=== PATIENT | female | born 1955 | race Caucasian/White ===

== ENCOUNTER → 2017-08-17 | Outpatient (CLI) | payer MEDICARE ==
[~2017-08-17] MED LIST: AMITRIPTYLINE H25 M3 PO; AMITRIPTYLINE H50 M2 PO; AMITRIPTYLINE H50 M3 PO; AMITRIPTYLINE H50 M4 PO; ATENOLOL 25 MG25 M1 PO; ATIVAN1 MG PO; BUSPIRONE HCL15 MG PO; GABAPENTIN800 M1 PO; HYDROCODON-ACE1 EAC5 PO; METFORMIN HCL500 MG PO; OMEPRAZOLE40 MG PO; SINGULAIR 10 MG10 M1 PO; SPIRIVA INH; VENTOLIN HFA 1818 GM INH; ZANAFLEX4 MG PO; [UNRECOGNIZED DRUG - OTHER] PO
== END ==
LOC: M.WC 08-03 01:36
DX: S51.802A Unspecified open wound of left forearm, initial encounter (principal); E11.622 Type 2 diabetes mellitus with other skin ulcer; L98.491 Non-pressure chronic ulcer of skin of other sites limited to breakdown of skin; E78.00 Pure hypercholesterolemia, unspecified; G43.109 Migraine with aura, not intractable, without status migrainosus; I87.2 Venous insufficiency (chronic) (peripheral); J44.9 Chronic obstructive pulmonary disease, unspecified; M85.80 Other specified disorders of bone density and structure, unspecified site; E11.42 Type 2 diabetes mellitus with diabetic polyneuropathy; K21.9 Gastro-esophageal reflux disease without esophagitis; E11.36 Type 2 diabetes mellitus with diabetic cataract; M81.0 Age-related osteoporosis without current pathological fracture; I10 Essential (primary) hypertension; F41.9 Anxiety disorder, unspecified; F32.9 Major depressive disorder, single episode, unspecified; F17.200 Nicotine dependence, unspecified, uncomplicated; Z90.49 Acquired absence of other specified parts of digestive tract; Z90.710 Acquired absence of both cervix and uterus; X58.XXXA Exposure to other specified factors, initial encounter; Y99.8 Other external cause status; Y92.89 Other specified places as the place of occurrence of the external cause; Y93.89 Activity, other specified

== ENCOUNTER → 2017-08-24 | Outpatient (CLI) | payer MEDICARE | LOC: M.WC 01:53 | DX: E11.622 Type 2 diabetes mellitus with other skin ulcer (principal); I87.2 Venous insufficiency (chronic) (peripheral); L98.491 Non-pressure chronic ulcer of skin of other sites limited to breakdown of skin; J44.9 Chronic obstructive pulmonary disease, unspecified; F41.9 Anxiety disorder, unspecified; E11.42 Type 2 diabetes mellitus with diabetic polyneuropathy; K21.9 Gastro-esophageal reflux disease without esophagitis; E11.36 Type 2 diabetes mellitus with diabetic cataract; F32.9 Major depressive disorder, single episode, unspecified; E78.00 Pure hypercholesterolemia, unspecified; F17.210 Nicotine dependence, cigarettes, uncomplicated; Z72.89 Other problems related to lifestyle; Z90.710 Acquired absence of both cervix and uterus ==

== ENCOUNTER → 2017-09-09 | Outpatient (CLI) | payer MEDICARE ==
--- NOTE | 2017-09-15 08:40 | PAINCON ---
[address] [address] PAIN MANAGEMENT CONSULTATION Name: TAMARA KEYS Room: [facility] MAYURI Chang#: [id number] Admission: 09/09/17 Attend Phys: Nasreen Dockery MD Discharge: Date of : 55 Report #: [id number] THIS REPORT FOR: //name// CC: Nasreen Chaney MD DATE OF SERVICE: 09/09/2017 CHIEF COMPLAINT: Chronic nerve pain in the back, hands, feet. 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 States that she has had chronic pain and discomfort. 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 States that she has been having difficulty with her balance. 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 She started to note onset of numbness and tingling in her hands as well as in her feet. She also has diabetes. She feels that it may have contributed to some of this. She has had a number of workups in that regard. Finds that amitriptyline, gabapentin, and Zanaflex are helpful. The patient has also over the last many years used hydrocodone to help control her pain and discomfort. She states that her primary care physician would like to have her be followed in the pain clinic for this chronic pain condition at this juncture. She states that she has had no problems with the medications and that she is taking them as prescribed. She continues to have some burning sensation in her hands and in her feet. There is a shooting pain component. She tries to stay active. She continues to follow up in an exercise class on a regular basis. She has had back surgery. Overall, she rates her pain as a 6/10. She describes it as a chronic continuous, steady, burning, shooting, aching pain involving her hands and feet. She is not sure of anything that makes it significantly better other than her medications. ALLERGIES: No known drug allergies. MEDICATIONS: Omeprazole 40 mg b.i.d., amitriptyline 25 mg in the morning and 750 mg at bedtime, metformin 500 mg, Singulair 10 mg, atenolol 25 mg one-half tablet, buspirone 15 mg b.i.d., gabapentin 800 mg t.i.d., Spiriva daily, Ventolin p.r.n., Ativan 1 mg at bedtime, Zanaflex 4 mg at bedtime and Breo Ellipta 200 mcg. PAST MEDICAL HISTORY: History of problems with balance and frequent falls; low back pain; history of lumbar disk disease; anxiety; spinal stenosis; lumbar region with neurogenic claudication; osteopenia; hoarseness of the voice; peripheral neuropathy; type 2 diabetes; generalized weakness; GERD; COPD; essential hypertension; migraine history; hypercholesterolemia; depression; history of reflex sympathetic [place] [address] PAIN MANAGEMENT CONSULTATION Name: TAMARA KEYS [facility] [id number] Admission: 09/09/17 Attend Phys: Nasreen Dockery MD Discharge: Date of : 55 Report #: [id number] PAST SURGICAL HISTORY: Hysterectomy, 09/20/2008; lumbar laminectomy, 08/18/2016; bunionectomy, 02/2014; transobturator urethral sling, 07/2015. 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 Current tobacco use, 30-year history, 1 pack per day. Alcohol, rare alcohol use, may be once per month. Denies use of illicit drugs. REVIEW OF SYSTEMS: Questionnaire in the chart, 14 points indicate generally good health; fevers; night sweats; wears glasses; chronic sinus problems; sore throat/scratchy throat; swelling in feet, ankles and hands; frequent cough; asthma symptoms; joint stiffness; muscle pains; muscle cramps; back pain; difficulty walking, ambulates with use of walker; problems with balance; varicose veins; numbness and tingling sensation in the hands and feet in a stocking glove distribution; insomnia and slow healing. LABORATORY AND IMAGING DATA: Information gleaned from past medical chart, 04/22/2016, EMG and NCV showed peripheral neuropathy, motor and sensory, axonal - severe; bilateral L5 and S1 radiculopathies, chronic changes present. History of arthritis in the back area. The patient is followed by her primary physician in that regard. The patient rates intensity of her pain as 7. She is a fall risk. She continues to work on her balance and her exercise classes. Has fallen in the last 3 months. Walks with use of a walker and continues to work on her balance. We recommend that the patient consider wearing a bicycle helmet in the event that she has fallen in her house and this would lessen the chance of head injury. The patient is not on any blood thinner, has a history of hypertension and is currently on medications for this. Use opioids greater than 6 weeks, has signed a contract and we have discussed the risks and benefits again of opioid therapy. Risk assessment tool was provided and scores a 39. The patient denies use of recreational drugs. Does smoke cigarettes on a regular basis, 1 pack per day, 30 years. I have discussed the benefits of stopping tobacco use. The patient states she has tried in the past and will continue to. PHYSICAL EXAMINATION: VITAL SIGNS: Height 5 feet 7 inches, weight 174 pounds, BMI is 27, temperature 97.9, blood pressure 148/75, heart rate 88, respiratory rate 16. GENERAL APPEARANCE: Well-developed white female. Does have some shaking in her hands as well as in her feet and legs during the interview. Appears cyst appears stated age. The patient is oriented x 3 and alert. Appears appropriate and has an appropriate affect. HEENT: Head is atraumatic. Has short hair. Ears: Hearing appears within normal limits. Eyes were equal. No nystagmus noted. Nonicteric. [place] [address] PAIN MANAGEMENT CONSULTATION Name: ALLISON KEYSShakir Cuadra Room: [facility]#: [id number] Admission: 09/09/17 Attend Phys: Nasreen Dockery MD Discharge: Date of : 55 Report #: [id number] NECK: No JVD, bruit. Some tenderness in the shoulder areas bilaterally. CHEST: Clear to auscultation. HEART: Regular rate. Slight murmur heard. S1, S2 noted. MUSCULOSKELETAL: Seems to have normal alignment. No obvious scoliosis or kyphosis. Neck flexion, extension, left and right lateral rotation, cervical compression not very problematic. NEUROLOGICAL: Sensation generally within normal limits in the upper portion of her arm and forearm. The patient states she has decreased sensation to pinprick and light touch to the mid portion of her fingers. Deep tendon reflexes are trace bilaterally at the biceps undetectable for brachioradialis and triceps. Muscle storm chaser strength is 4+ for left and right arm. The patient is unstable on her feet. Cannot close her eyes and stand. She is noted to be somewhat weak and uses her walker for ambulation. Deep tendon reflexes are difficult to appreciate in the left and right patellar area. Ankle jerks were absent. The patient states that there is a decreased sensation to touch, cold down in her feet. SKIN: The patient has a number of healing lesions on her forearms in different states of healing. The patient does cough numerous times with a deep cough, clear her lungs and throat. IMPRESSION: 1. Chronic pain with lumbar radicular components in the legs and neuropathy in the hands and feet. 2. Chronic obstructive pulmonary disease. 3. Anxiety. 4. Type 2 diabetes. 5. Generalized weakness. 6. Gastroesophageal reflux disease. 7. Hiatal hernia. 8. Essential hypertension. 9. Classic migraine history. 10. Depression. 11. History of reflex sympathetic dystrophy of lower limb. RECOMMENDATIONS: We spent a significant amount of time speaking with the patient regarding her past medical history and use of medications. States that she has been taking opioid medications for a number of years. She finds that in combination with her gabapentin, Elavil and Zanaflex are helpful. She continues to be active. She feels that this medication enables her to continue with her physical activities, which she does on a regular basis. She feels that the Elavil medication is helpful. She does not feel that it is causing her any increased sedation. She takes 25 mg in the midday and 50 mg at night. We will consider increasing this to 50 mg b.i.d. We will provide the patient with a drug contract. We explained and discussed the problems with opioid medications in today's society. We will provide her on a month to month basis of opioid 10 mg 1 p.o. t.i.d. at this juncture. She is aware that she should not get [address] [place] [address] PAIN MANAGEMENT CONSULTATION Name: TAMARA KEYS Room: [facility]#: [id number] Admission: 09/09/17 Attend Phys: Nasreen Dockery MD Discharge: Date of : 55 Report #: [id number] medication from any other sources. We would recommend that the patient try to continue to decrease her tobacco use. We know that this is not helpful in her given situation. We also recommend that she continue staying physically active. She will call us if she has any problem with her medications. A buccal drug screen has been garnered today. The patient will follow up a script for her medications for 1 month as it has been written for hydrocodone 10 one p.o. t.i.d. She will call us if she has any problems with her medications. We would like to thank you for letting us part letting us participate in her care. We hope she continues to improve. The patient will also increase her Elavil from 25 in the midday and 50 at night to 50 midday and 50 at night. <ELECTRONICALLY SIGNED> By: Nasreen Dockery MD 09/15/17 0840 [id number] [id number]. Gilmer Dockery MD /HEDY
== END ==
LOC: M.PC 01:44
DX: G89.29 Other chronic pain (principal); E11.9 Type 2 diabetes mellitus without complications; K21.9 Gastro-esophageal reflux disease without esophagitis; J44.9 Chronic obstructive pulmonary disease, unspecified; I10 Essential (primary) hypertension; M79.2 Neuralgia and neuritis, unspecified; E78.00 Pure hypercholesterolemia, unspecified; F41.9 Anxiety disorder, unspecified; R53.1 Weakness; K44.9 Diaphragmatic hernia without obstruction or gangrene; G90.50 Complex regional pain syndrome I, unspecified; F32.9 Major depressive disorder, single episode, unspecified; Z90.49 Acquired absence of other specified parts of digestive tract; Z86.69 Personal history of other diseases of the nervous system and sense organs; Z98.890 Other specified postprocedural states

== ENCOUNTER → 2017-10-14 | Outpatient (CLI) | payer MEDICARE ==
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
== END ==
LOC: M.PC 10-07 08:00
DX: M54.16 Radiculopathy, lumbar region (principal); G62.9 Polyneuropathy, unspecified; J44.9 Chronic obstructive pulmonary disease, unspecified; F41.9 Anxiety disorder, unspecified; E11.9 Type 2 diabetes mellitus without complications; R53.1 Weakness; K21.9 Gastro-esophageal reflux disease without esophagitis; K44.9 Diaphragmatic hernia without obstruction or gangrene; I10 Essential (primary) hypertension; F32.9 Major depressive disorder, single episode, unspecified; G90.529 Complex regional pain syndrome I of unspecified lower limb

== ENCOUNTER → 2017-11-11 | Outpatient (CLI) | payer MEDICARE ==
--- NOTE | 2017-11-12 08:28 | PAINCON ---
[facility] [address] [place] [address] PAIN MANAGEMENT CONSULTATION Name: TAMARA KEYS Room: [facility] Charlene#: [id number] Admission: 11/11/17 Attend Phys: Nasreen Dockery MD Discharge: Date of : 55 Report #: [id number] THIS REPORT FOR: //name// CC: Nasreen Chaney MD DATE OF SERVICE: 11/11/2017 PRIMARY CARE PHYSICIAN: Haroldo Chaney M.D. FOLLOWUP COMPLAINT: Here for medication renewal. 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 As you recall, she has pain and discomfort in the low back area as well as some weakness and problems with balance. States that she continues to be stable. She has noticed the changed in weather. As a result of the change in the weather, she has noted some increasing pain and discomfort. Overall, she rates her pain intensity as a 5-6/10. It involves her low back. She also has some arthritic changes in her low back. She continues to work on her balance. She gets up in the morning about 6:30 and after a period of time goes to her jazzercise class. Works on her balance and muscle strength for about an hour. Does continue to use a walker to walk. Noting some increased skin changes. As you know, she has some areas of thinning skin. She bumps into the wall and her skin tears. She has been using Coban to help with this. She also has a dog. Dog sometimes gets under foot. She minds when tries to keep from falling. She feels overall that things are going reasonably well with her medications. She finds that the amitriptyline is helpful. She does note some dryness of her mouth. She feels that tizanidine is helpful and finds hydrocodone beneficial as well. She has had no complications since we saw her last. No change in bowel or bladder function. Has not fallen since we saw her last. She would like to continue with her medication. ALLERGIES: No known drug allergies. MEDICATIONS: Continue to be omeprazole 40 mg b.i.d., amitriptyline 50 mg b.i.d., metformin 500 mg daily, Singulair 10 mg, atenolol 25 mg one half tablet, buspirone 15 mg b.i.d., gabapentin 800 mg t.i.d., Spiriva daily, Ventolin p.r.n., Ativan 1 mg at bedtime, Zanaflex 4 mg at bedtime, Breo 200 mcg. PAIN CLINIC ASSESSMENT: The patient is not being treated for osteoarthritis, but says she has some arthritic changes in the lower portion of her back. Height 5 feet 7 inches, weight is 171 pounds. VITAL SIGNS: Blood pressure 168/88, pulse 92, respiratory rate 16, room air saturation is 95%, temperature 98.2. [place] [address] PAIN MANAGEMENT CONSULTATION Name: TAMARA KEYS Room: [facility] MAYURI Chang#: [id number] Admission: 11/11/17 Attend Phys: Nasreen Dockery MD Discharge: Date of : 55 Report #: [id number] Pain intensity: 5-6/7. Fall risk. The patient has not fallen. She continues to walk with her walker. She tries to maintain her balance at home with her dog, which run around her feet. Continues to go to [employer] to maintain balance and muscle strength. Blood thinner. She is not on a blood thinner. History of hypertension. The patient was treated in the past, but is not being treated for hypertension at this juncture. Opioid therapy greater than 6 weeks. The patient has a contract signed with Pain Clinic. She only get her medications from one source. Recreational drug use. The patient denies recreational drug use. Tobacco: The patient has an approximately 40-year history of tobacco, smokes 1 pack of cigarettes per day and is continuing to try to decrease this. Alcohol. The patient denies significant use of alcoholic beverages. PHYSICAL EXAMINATION: GENERAL: The patient is a well-developed white female. She does continue to have some shaking activity in her hands. She also has some in her feet. She appears to be her stated age. She is alert and oriented x 3. HEENT: Normocephalic, atraumatic. Extraocular eye muscles are intact. Hearing is within normal limits. No nystagmus. Mucous membranes are moist. NECK: Good range of motion without adenopathy. CHEST: Clear to auscultation. The patient is coughing. There is some sounds of congestion in the chest area. HEART: Regular rate, slight murmur. S1, S2 noted. MUSCULOSKELETAL: Alignment without significant scoliosis or kyphosis. The patient has some soreness in the low back area. Has some paraspinous muscle discomfort. Notes some weakness in her lower extremities, helps to go from a sitting to standing position using her hands, walks with use of her cane. NEUROLOGIC: The patient has some discomfort in her left rib cage, status post fall, but her walker. This is improving. SKIN: She has some breakdown on her skin on the right forearm as well as some well healing wounds on her left arm because of the thinness of her skin and slight trauma. IMPRESSION: 1. Chronic pain, lumbar radicular components in the legs and neuropathy in hands and feet. 2. Chronic obstructive pulmonary disease, continues to smoke. 3. Anxiety. 4. Type 2 diabetes. 5. Generalized weakness. 6. Gastroesophageal reflux. 7. Hiatal hernia. 8. Essential hypertension. 9. Chronic migraine headaches. 10[place] [address] PAIN MANAGEMENT CONSULTATION Name: TAMARA KEYS Room: [facility]#: [id number] Admission: 11/11/17 Attend Phys: Nasreen Dockery MD Discharge: Date of : 55 Report #: [id number] 11. History of reflex sympathetic dystrophy of the lower extremities. RECOMMENDATIONS: We discussed treatment options with the patient. At this juncture, we will continue with her current medication regimen. We will consider increasing her amitriptyline to a 100 mg tablet, instead of 50 mg b.i.d. She will take her amitriptyline at bedtime at 100 mg dose. If she finds this is successful, we will then convert her at the next visit. She feels that tizanidine and the hydrocodone is helpful. She continues with her jazzercise to increase her muscle strength and activity. She continues to work towards decreasing her tobacco use. We would like to thank you for letting us participate in her care. We hope she continues to improve. <ELECTRONICALLY SIGNED> By: Nasreen Dockery MD 11/12/17 0828 [id number]. Gilmer Dockery MD /PMT
== END ==
LOC: M.PC 01:17
DX: M54.16 Radiculopathy, lumbar region (principal); G89.29 Other chronic pain; J44.9 Chronic obstructive pulmonary disease, unspecified; F41.9 Anxiety disorder, unspecified; E11.9 Type 2 diabetes mellitus without complications; K21.9 Gastro-esophageal reflux disease without esophagitis; K44.9 Diaphragmatic hernia without obstruction or gangrene; I10 Essential (primary) hypertension; F32.9 Major depressive disorder, single episode, unspecified; G43.909 Migraine, unspecified, not intractable, without status migrainosus; M62.81 Muscle weakness (generalized); F17.200 Nicotine dependence, unspecified, uncomplicated

== ENCOUNTER → 2017-12-09 | Outpatient (CLI) | payer MEDICARE ==
--- NOTE | 2017-12-15 08:18 | PAINCON ---
[address] [address] PAIN MANAGEMENT CONSULTATION Name: TAMARA KEYS Room: [facility]ANNI Charlene#: [id number] Admission: 12/09/17 Attend Phys: Nasreen Dockery MD Discharge: Date of : 55 Report #: [id number] THIS REPORT FOR: //name// CC: Nasreen Chaney MD DATE OF SERVICE: 12/09/2017 FOLLOWUP COMPLAINT: "I have had some coughing and congestion. My back hurts because of coughing. 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 His recall, she has pain and discomfort in the low back area. She has been having more problems with coughing at this juncture. Because of the severe coughing, she does note some worsening of pain and discomfort in the mid back area. She also notes some increased discomfort in her legs, which feel somewhat achy. She continues to try to stay active. Continues to go and practice her yoga/jazzercise class. Continues to walk with use of her walker. She is still smoking cigarettes. Did fall recently after her dog got on her foot. She also fell after going and turning off a light. She states she turned around and fell after that. She feels that her medications are still helpful. No change in bowel or bladder function. She would like to have her medications renewed. ALLERGIES: No known drug allergies. MEDICATIONS: Omeprazole 40 mg b.i.d., amitriptyline 50 mg b.i.d., metformin 50 mg daily, Singulair 10 mg, atenolol 25 mg 1/2 tablet, buspirone 15 mg b.i.d., gabapentin 800 mg t.i.d., Spiriva, Ventolin, Ativan at bedtime, Zanaflex 4 mg at bedtime, Breo 200 mcg. PAIN CLINIC ASSESSMENT: 1. The patient has some low back pain and back surgeries. 2. Height 5 feet 7 inches, weight 168 pounds, BMI is 24. 3. Vital Signs: Blood pressure 154/96, heart rate 194, respiratory rate 16, room air saturation 98%, temperature 98.4. 4. Pain intensity 5/10 secondary to increased pain from coughing as well as some achy sensation in the lower legs because of the severity of coughing. 5. Fall risk. The patient fell after turning around at the wall and turning off to light. 6. Blood thinner. The patient is not on a blood thinner. 7. Hypertension. The patient is being treated for hypertension. 8. Opioid medications greater than 6 weeks. The patient is on an opioid therapy. 9. Risk assessment tool. 10. [place] [address] PAIN MANAGEMENT CONSULTATION Name: TAMARA KEYS [facility] [id number] Admission: 12/09/17 Attend Phys: Nasreen Dockery MD Discharge: Date of : 55 Report #: [id number] 11. Recreational drug use. Denies use of recreational drugs. 12. Tobacco use. The patient smokes 1 pack of cigarettes per day and has smoked for 40 years. 13. Alcohol frequency is rare. PHYSICAL EXAMINATION: GENERAL: The patient is well developed white female, appears her stated age. She continues to have some shakiness in her hands. She is using her walker. Appears her stated age. She is alert and oriented x 3. HEENT: Normocephalic, atraumatic. Extraocular muscles intact. Sclerae nonicteric. Hearing within normal limits. No nystagmus. Mucous membranes are moist. NECK: Good range of motion without adenopathy. CHEST: The patient is coughing with some significant force. Complains of pain and discomfort in the back area, particularly when she coughs. It sounds quite congested without use of a stethoscope. HEART: Regular rate. Slight murmur. Normal S1, S2. MUSCULOSKELETAL: Alignment without significant scoliosis, kyphosis or lordosis. The patient has some soreness in her back secondary to coughing. She has some weakness in her lower extremities and walks with use of a walker, which helps her to stand. Uses her hands to help go from the sitting to the standing position. NEUROLOGICAL: The patient complains of some discomfort in the rib cage. SKIN: The patient has some skin breakdown on her right forearm as well as some healing wounds on her left arm. She has significant thinning of skin. IMPRESSION: 1. Chronic pain, lumbar radicular component in the legs and neuropathy in hands and feet. 2. Chronic obstructive pulmonary disease with coughing and increased back soreness as well as some leg discomfort because of the severity of coughing. The patient continues to smoke. 3. Anxiety. 4. Type 2 diabetes. The patient states that sometimes she exercises and takes her medication. Her blood sugars are lower than should be. She is monitoring this. 5. Generalized weakness. 6. Gastroesophageal reflux. 7. Hiatal hernia. 8. Hypertension. 9. Chronic migraine headaches. 10. Depression. 11. History of reflex sympathetic dystrophy of the lower extremities. RECOMMENDATIONS: We will continue with her current medications. A script for medication has been written. We have again advised her to decrease use of [facility] [address] [address] PAIN MANAGEMENT CONSULTATION Name: TAMARA KEYS Room: [facility].#: [id number] Admission: 12/09/17 Attend Phys: Nasreen Dockery MD Discharge: Date of : 55 Report #: [id number] tobacco this might be helpful in her COPD. Hopefully, her coughing will start to decrease. She will continue with her medication as prescribed. She will call us if she has any problems. We would like to thank you for letting us participate in her care. We hope she continues to improve. <ELECTRONICALLY SIGNED> By: Nasreen Dockery MD 12/15/17 0818 1046 [id number]. Gilmer Dockery MD /[facility]
== END ==
LOC: M.PC 01:57
DX: M54.16 Radiculopathy, lumbar region (principal); J44.9 Chronic obstructive pulmonary disease, unspecified; F41.9 Anxiety disorder, unspecified; E11.40 Type 2 diabetes mellitus with diabetic neuropathy, unspecified; R53.1 Weakness; K21.9 Gastro-esophageal reflux disease without esophagitis; I10 Essential (primary) hypertension; F32.9 Major depressive disorder, single episode, unspecified; G43.909 Migraine, unspecified, not intractable, without status migrainosus

== ENCOUNTER → 2018-01-06 | Outpatient (CLI) | payer MEDICARE ==
--- NOTE | 2018-01-26 13:50 | PAINCON ---
[address] [address] PAIN MANAGEMENT CONSULTATION Name: TAMARA KEYS Room: [facility] Chang#: [id number] Admission: 01/06/18 Attend Phys: Nasreen Dockery MD Discharge: Date of : 55 Report #: [id number] THIS REPORT FOR: //name// CC: Nasreen Chaney MD DATE OF SERVICE: 01/06/2018 FOLLOWUP COMPLAINT: "I went to [place] to see my brother. 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 As you recall, she has had some problems with her back with back pain. She also suffers from drop foot involving her right leg. She has noticed that her pain has gotten worse. She felt that the Zika virus became more problematic. She noted a recurrence of her symptoms. There was significant burning sensation in her skin. Noticed some increased swelling in her lower extremities. Has been experiencing some pain and discomfort in her fingers and joints. Has noted recurrence of her cough. Continues to walk with her walker. She recounts getting in the swimming pool. Had difficulty moving her right leg. This is one of foot drop. Had family members help move her leg in order for her to get out of the swimming pool. Overall, feels that her pain is an 8/10. Has been coughing significantly more. Feels that her medications of hydrocodone, amitriptyline, gabapentin, and tizanidine are quite efficacious. ALLERGIES: No known drug allergies. MEDICATIONS: Omeprazole 40 mg b.i.d., amitriptyline 50 mg b.i.d., metformin 50 mg daily, Singulair 10 mg, atenolol 25 mg 1/2 tablet, buspirone 15 mg b.i.d., gabapentin 800 mg t.i.d., Spiriva, Ventolin, Ativan at bedtime, Zanaflex 4 mg at bedtime, Breo 200 mcg. PAIN CLINIC ASSESSMENT: 1. The patient has continued to have some low back pain and has had back surgeries associated with osteoarthritis and arthritic changes. 2. Height 5 feet 7 inches, weight 167 pounds, BMI is 26. 3. VITAL SIGNS: Blood pressure 151/80, heart rate 87, respiratory rate 16, room air saturation 95%, and temperature 98.7. 4. Pain intensity 8/10. Notes some increased coughing and aching sensations secondary to reoccurrence of Zika. 5. Blood thinner. The patient is not on a blood thinner. 6. Hypertension. The patient is being treated for hypertension. 7. Opioid medications greater than 6 weeks. The patient is on an opioid regimen. Gets her medication from [facility]. 8. [place] [address] PAIN MANAGEMENT CONSULTATION Name: LUDMILATAMARA Cuadra Room: [facility]#: [id number] Admission: 01/06/18 Attend Phys: Nasreen Dockery MD Discharge: Date of : 55 Report #: [id number] 9. Functional assessment tool. 10. Recreational drug use. Denies use of recreational drugs. 11. Tobacco: The patient smokes 1 pack of cigarettes per day and has smoked for 40 years. 12. Alcohol frequency is rare. PHYSICAL EXAMINATION: GENERAL: The patient is a well-developed white female. She appears her stated age. She continues to have some shakiness in her hands. She is using a walker. She is coughing quite a bit at this juncture. She is alert and oriented x 3. Appears her stated age. HEENT: Normocephalic, atraumatic. Extraocular eye muscles intact. Sclerae nonicteric. Hearing is within normal limits. No nystagmus. Mucous membranes are moist. NECK: Good range of motion without adenopathy or JVD. CHEST: The patient is coughing significantly. She is coughing with a significant amount of force. States that she has had a recurrence of the Zika outbreak. HEART: Regular rate, slight murmur. Normal S1, S2. MUSCULOSKELETAL: Alignment without significant scoliosis, kyphosis, or lordosis. The patient has some increased pain and discomfort, particularly with the exertion of coughing. Walks with her walker. Has some increased pain and discomfort in her hands. Has had some decreased swelling in her legs. She showed pictures of swelling and a rash, which was present during the Zika episode, which is improved at this juncture. NEUROLOGIC: The patient complains of some rib pain secondary to all the coughing. SKIN: The patient has some swelling noted in the right lower extremity and left lower extremity, right side more problematic than the left. Continues to have foot drop on the right. IMPRESSION: 1. Chronic pain with lumbar radicular components involving her leg with neuropathy in hands and feet. 2. Chronic obstructive pulmonary disease with coughing, which is increased secondary to recurrence and exacerbation of the Zika virus. 3. The patient continues to smoke. 4. Anxiety. 5. Type 2 diabetes. The patient states that she continues to exercise and go to the Jazz[employer]. 6. Generalized weakness. 7. Gastroesophageal reflux. 8. Hiatal hernia. 9. Hypertension. 10. Chronic migraine headaches. 11. Depression. [place] [address] PAIN MANAGEMENT CONSULTATION Name: TAMARA KEYS Room: [facility] CleaningGen#: [id number] Admission: 01/06/18 Attend Phys: Nasreen Dockery MD Discharge: Date of : 55 Report #: [id number] 12. Reflex sympathetic dystrophy of the lower extremities. RECOMMENDATIONS: We discussed treatment option with the patient. We will continue with her current medications. A script for hydrocodone 10/325, amitriptyline 50 mg b.i.d., gabapentin 800 mg t.i.d. and tizanidine have been written. The patient will call us if she has any problems. She states that she has some steroid medications at home. She takes 10 mg p.r.n. exacerbations. She has been taking the steroid medication at this juncture secondary to recurrence of the Zika virus. She states that she only takes this as long as she needs because she hates the "side effects." We would like to thank you for letting us participate in her care. We hope she continues to improve. <ELECTRONICALLY SIGNED> By: Nasreen Dockery MD 01/26/18 1350 0836 [id number]. Gilmer Dockery MD /nt
== END ==
LOC: M.PC 04:33
DX: M54.16 Radiculopathy, lumbar region (principal); G89.29 Other chronic pain; E11.9 Type 2 diabetes mellitus without complications; I10 Essential (primary) hypertension; J44.9 Chronic obstructive pulmonary disease, unspecified; K44.9 Diaphragmatic hernia without obstruction or gangrene; K21.9 Gastro-esophageal reflux disease without esophagitis; F32.9 Major depressive disorder, single episode, unspecified; F41.9 Anxiety disorder, unspecified; G43.909 Migraine, unspecified, not intractable, without status migrainosus; R53.1 Weakness

== ENCOUNTER → 2018-02-03 | Outpatient (CLI) | payer MEDICARE ==
--- NOTE | 2018-02-10 15:18 | PAINCON ---
[address] [address] PAIN MANAGEMENT CONSULTATION Name: TAMARA KEYS Room: [facility] Chang#: [id number] Admission: 02/03/18 Attend Phys: Nasreen Dockery MD Discharge: Date of : 55 Report #: [id number] THIS REPORT FOR: //name// CC: Nasreen Chaney DATE OF SERVICE: 02/03/2018 FOLLOWUP COMPLAINT: Here for medication renewal. FOLLOWUP HISTORY: The patient is a 63-year-old female who has been followed in the pain clinic because of chronic pain. As you recall, she has a history of Zika virus infection. She oftentimes has flares. Recently, she noticed a flareup. Notes some swelling and edema in her legs. It was felt that she had cellulitis. She went to an urgent care center. She was placed on an antibiotic, which seems to be helpful. She notes a correlation between worsening of her lung function as well as the outbreak/complications Zika. She did note that at this juncture. She had some increased swelling in her legs had some increased problems with breathing. She was restarted on steroids. States that she is trying to curtail the amount of steroids that she is using, but felt antibiotic and steroid use was necessary. Things have improved at this juncture. She fell recently. States that she got up in the morning and night. She was letting her dogs out. She fell and irritated/bruised her right elbow. Noticed some sloughing of skin. Overall, this is beginning to heal reasonably well and she has been keeping a bandage. Continues to walk and ambulate with her walker. ALLERGIES: No known drug allergies. MEDICATIONS: Omeprazole 40 mg b.i.d., amitriptyline 50 mg b.i.d., metformin 50 mg daily, Singulair 10 mg, atenolol 25 mg one-half tablet, buspirone 15 mg b.i.d., gabapentin 800 mg t.i.d., Spiriva, Ventolin, Ativan at bedtime, Zanaflex 4 mg at bedtime, Breo 200 mg oral steroids and an antibiotic, which she is trying to taper from. PAIN CLINIC ASSESSMENT: 1. The patient has some low back pain and has had back surgeries with osteoarthritic changes. 2. Height 5 feet 7 inches, weight 164 pounds, BMI is 25. 3. Vital signs: Blood pressure 136/76, heart rate 84, respiratory rate 16, room air saturation 93%, temperature 98.3. Pain intensity 4/10. 4. Blood thinner. The patient is not on a blood thinning medication. 5. Hypertension. The patient is being treated for hypertension. 6. Opioid medications keep greater than 6 weeks. The patient is on an opioid regimen and [facility]. 7. [place] [address] PAIN MANAGEMENT CONSULTATION Name: TAMARA KEYS Room: [facility]#: [id number] Admission: 02/03/18 Attend Phys: Nasreen Dockery MD Discharge: Date of : 55 Report #: [id number] 8. Functional assessment tool. 9. Recreational drug use. The patient denies use of recreational drugs. 10. Tobacco: The patient smokes 1 pack of cigarettes per day and has smoked for 40 years. 11. Alcohol. The patient rarely drinks alcoholic beverages. PHYSICAL EXAMINATION: GENERAL: The patient is well developed white female. She appears her stated age. She continues to have some shakiness in her hands. Continues using her walker. Does cough quite a bit at this juncture. She is alert and oriented x 3. Appears her stated age. HEAD, EYES, EARS, NOSE, AND THROAT: Normocephalic, atraumatic. Extraocular eye muscles intact. The patient wears glasses. Sclerae nonicteric. Hearing is within normal limits. No nystagmus. Mucous membranes are moist. NECK with good range of motion without adenopathy or JVD. CHEST: The patient continues to cough and have some significant signs of congestion in her chest. HEART: Regular rate, slight murmur. Normal S1, S2. MUSCULOSKELETAL: Without significant scoliosis, kyphosis or lordosis. The patient walks with use of a cane. Legs appear somewhat weak. 4+/5 for muscle strength in the lower extremities. 4+/5 for upper muscle strength. The patient has a bandage on her right elbow. States that it has had some sloughing after a fall, but is healing reasonably well. Has skin bruises consistent with patients on long-term steroid use. Continues to have foot drop on the right. IMPRESSION: 1. Chronic pain, lumbar radicular component involving her leg with neuropathy in hands and feet. 2. Onset of the Zika flareup with increased swelling in lower extremities and some worsening of her pulmonary disease. 3. Use of tobacco. The patient continues to smoke. 4. Anxiety. 5. Type 2 diabetes. The patient states she continues to exercise and doing jazzercise. She is going to bowling today. 6. Generalized weakness. 7. Gastroesophageal reflux. 8. Hiatal hernia. 9. Hypertension. 10. Chronic migraine headaches. 11. Depression. 12. Reflex sympathetic dystrophy of the lower extremities. RECOMMENDATIONS: We discussed treatment options with the patient. We will continue with her current medical regimen. A script for her gabapentin, tizanidine, hydrocodone and amitriptyline were written. She will call us if she has any problems with her medications. She continues [place] [address] PAIN MANAGEMENT CONSULTATION Name: TAMARA KEYS Room: [facility]#: [id number] Admission: 02/03/18 Attend Phys: Nasreen Dockery MD Discharge: Date of : 55 Report #: [id number] continue with her physical activity to maintain her strength. The patient states that she is going bowling today. Hopefully, she continues to improve. Notes that her Zika episode continues to improve. Hopefully, this continues to improve. She will call us if she has any problems or concerns. We would like to thank you for letting us to participate in her care. We hope she continues to improve. <ELECTRONICALLY SIGNED> By: Nasreen Dockery MD 02/10/18 1518 0857 1007N. Gilmer Dockery MD /[facility]
== END ==
LOC: M.PC 03:57
DX: G89.29 Other chronic pain (principal); M54.16 Radiculopathy, lumbar region; M79.89 Other specified soft tissue disorders; I10 Essential (primary) hypertension; E11.9 Type 2 diabetes mellitus without complications; K21.9 Gastro-esophageal reflux disease without esophagitis; K44.9 Diaphragmatic hernia without obstruction or gangrene; F32.9 Major depressive disorder, single episode, unspecified; F17.200 Nicotine dependence, unspecified, uncomplicated; R53.1 Weakness; R51 Headache

== ENCOUNTER → 2018-03-31 | Outpatient (CLI) | payer MEDICARE ==
--- NOTE | 2018-04-22 17:38 | PAINCON ---
[address] [address] PAIN MANAGEMENT CONSULTATION Name: TAMARA KEYS Room: [facility] Charlene#: [id number] Admission: 03/31/18 Attend Phys: Nasreen Dockery MD Discharge: Date of : 55 Report #: [id number] THIS REPORT FOR: //name// CC: Nasreen Chaney DATE OF SERVICE: 03/31/2018 FOLLOWUP COMPLAINT: Low back pain in the knees, hands and feet. FOLLOWUP HISTORY: The patient is a 63-year-old female who has been seen in the Pain Clinic because of chronic pain. She has a history of Zika infection. She notes that she can undergo swelling and worsening of pain and discomfort in the lower extremities because of this virus outbreak. She continues to have neuropathy. She has recently fallen. 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 She rates her pain as a 5/10. The patient does have an elevated LEONARDO. She does have some rheumatic symptomatology. She has returned today for renewal of her medications. She has noticed a consistent cough. ALLERGIES: No known drug allergies. CURRENT MEDICATIONS: Omeprazole 40 mg b.i.d., amitriptyline 50 mg b.i.d., metformin 50 mg daily, Singulair 10 mg, atenolol 25 mg one-half tablet, buspirone 15 mg b.i.d., gabapentin 800 mg t.i.d., Spiriva, Ventolin, Ativan at bedtime, Zanaflex 4 mg at bedtime, Breo 200 mcg steroids, and an antibiotic. She continues to take her medications as prescribed. She has returned for renewal of her medications. PAIN CLINIC ASSESSMENT: 1. The patient has a history of rheumatoid arthritis. The patient has had back surgeries with osteoarthritic changes. 2. Height 5 feet 7 inches, weight 165 pounds, BMI is 25. 3. Vital signs: Blood pressure 134/88, heart rate 97, respiratory rate 16, room air saturation 97%, temperature 98.2. 4. Pain intensity: 5/10. 5. Fall risk: The patient did fall while going to the mailbox. 6. Blood thinner: The patient is not on a blood thinning medication. 7. History of hypertension: The patient is not being treated for hypertension. 8. Opioid therapy greater than 6 weeks: The patient is on opioid medication. 9. Risk assessment tool. 10. Functional assessment tool. 11. Recreational drug use. 12. Tobacco: The patient smokes 1 pack of cigarettes per day and has for the last 40 years. 13. Alcohol: The patient [place] [address] PAIN MANAGEMENT CONSULTATION Name: TAMARA KEYS Room: [facility]#: [id number] Admission: 03/31/18 Attend Phys: Nasreen Dockery MD Discharge: Date of : 55 Report #: [id number] PHYSICAL EXAMINATION: GENERAL: The patient is a well-developed white female. She appears her stated age. She is somewhat shaky in her hands. She continues to use her walker. She does have a somewhat productive cough. She appears her stated age. HEENT: Normocephalic, atraumatic. Extraocular muscles are intact. The patient is wearing glasses. Sclerae are nonicteric. Hearing is within normal limits. No nystagmus. Mucous membranes are moist. NECK: With good range of motion, without adenopathy or JVD. CHEST: Somewhat congested. HEART: Regular rate. Slight murmur. S1, S2. MUSCULOSKELETAL: Without significant scoliosis, kyphosis, or lordosis. The patient does walk with use of a cane. Legs appear weak, 4+/5 for the muscle strength in the lower extremities. Upper extremity muscle strength about 4+/5 for the upper muscle strength as well. The patient notes easy bruisability on her arms, continuous foot-drop activity on the right. IMPRESSION: 1. Chronic pain with lumbar radicular component in her leg with neuropathy in hands and feet. 2. Onset of Zika flareup with increased swelling in her lower extremities and worsening of her pulmonary disease. 3. Use of tobacco. The patient continues to smoke. 4. Anxiety. 5. Diabetes type 2. The patient states she continues to exercise and go to jazzercise. 6. Generalized weakness. 7. Gastroesophageal reflux. 8. Hiatal hernia. 9. Hypertension. 10. Chronic migraine headaches. 11. Depression. 12. Reflex sympathetic dystrophy of the lower extremities. RECOMMENDATIONS: We discussed treatment options with the patient. Risks and benefits of continued use of opioid medications were reviewed. The possible complications could include addiction as well as having difficulty with continued pain relief because of development of tolerance. The patient would like to continue with her medications. A script for her medications of Zanaflex 4 mg, amitriptyline 50 mg, hydrocodone 10/325 one tablet p.o. t.i.d. has been written. She will call us if she has any [place] [address] PAIN MANAGEMENT CONSULTATION Name: TAMARA KEYS Room: [facility]#: [id number] Admission: 03/31/18 Attend Phys: Nasreen Dockery MD Discharge: Date of : 55 Report #: [id number] We would like to thank you for letting us participate in her care. We hope she continues to improve. <ELECTRONICALLY SIGNED> By: Nasreen Dockery MD 04/22/18 1738 1702 0008Shakir. Gilmer Dockery MD /nt
== END ==
LOC: M.PC 05:00
DX: M54.5 Low back pain (principal); I10 Essential (primary) hypertension; E11.9 Type 2 diabetes mellitus without complications; K21.9 Gastro-esophageal reflux disease without esophagitis; G43.709 Chronic migraine without aura, not intractable, without status migrainosus; K44.9 Diaphragmatic hernia without obstruction or gangrene; M25.561 Pain in right knee; M79.89 Other specified soft tissue disorders; M62.81 Muscle weakness (generalized); F41.9 Anxiety disorder, unspecified; F32.9 Major depressive disorder, single episode, unspecified; F17.200 Nicotine dependence, unspecified, uncomplicated

== ENCOUNTER → 2018-04-28 | Outpatient (CLI) | payer MEDICARE ==
--- NOTE | 2018-05-30 10:00 | PAINCON ---
[address] [address] PAIN MANAGEMENT CONSULTATION Name: TAMARA KEYS Room: [facility] Chang#: [id number] Admission: 04/28/18 Attend Phys: Nasreen Dockery MD Discharge: Date of : 55 Report #: [id number] THIS REPORT FOR: //name// CC: Nasreen Chaney DATE OF SERVICE: 04/28/2018 CHIEF COMPLAINT: Here for medication renewal. HISTORY OF PRESENT ILLNESS: The patient is a 63-year-old gentleman female who has been followed in the pain clinic because of chronic pain. She has had Zika infection. She has noticed swelling in her feet. At this juncture, she has visit a vein clinic. They feel that some of the congestion may be associated with varicose veins. She is scheduling herself for a treatment. She will require 4 treatments. At this juncture, she is somewhat happy with the thought that some of the swelling may be able to be brought to hold with this procedure. She continues to work with her [employer] class. She rates her pain today as 5/10 at this juncture. She feels that the procedure can be done using the endovenous laser ablation. She has noted some continued bruising on her arms, which is easy. Notes are skin tears easily. Continues to monitor these changes. ALLERGIES: No known drug allergies. CURRENT MEDICATIONS: Omeprazole 40 mg b.i.d., amitriptyline 50 mg b.i.d., metformin 50 mg daily, Singulair 10 mg, atenolol 25 mg 1-1/2 tablet, buspirone 15 mg b.i.d., gabapentin 800 mg t.i.d., Spiriva Ventolin, Ativan at bedtime, Zanaflex 4 mg at bedtime, Breo 200 mcg steroid and antibiotic. The patient feels that her medications are helpful. PAIN CLINIC ASSESSMENT 1. The patient has a history of rheumatoid arthritis. She has had back surgeries with orthopedic changes. 2. Height 5 feet 7 inches, weight 161 pounds, BMI is 27. 3. VITAL SIGNS: Blood pressure 152/59, heart rate 93, respiratory rate 16, room air saturation 96%, and temperature 98.2. The pain score 5/10. 4. Fall risk. The patient has not fallen in the last month. 5. Blood thinner. The patient is not on a blood thinning medication. 6. History of hypertension. The patient is not being treated for hypertension. 7. Opioid therapy greater than 6 weeks. The patient is on her opioid medication gets her maintenance medicine from one source. 8. Risk assessment tool. 9. Functional assessment tool. 10. Recreational drug use. The patient denies use of recreational drugs. 11. Tobacco: The patient smokes 1 pack of cigarettes per [place] [address] PAIN MANAGEMENT CONSULTATION Name: TAMARA KEYS [id number] Admission: 04/28/18 Attend Phys: Nasreen Dockery MD Discharge: Date of : 55 Report #: [id number] for the last 40 years. 12. Alcohol: The patient denies use of alcoholic beverages. PHYSICAL EXAMINATION: GENERAL: The patient is a well-developed white female, appears her stated age. She is alert and oriented x 3. Her hands are somewhat shaky. Does use a walker. She has less of a productive cough at this visit. HEENT: Normocephalic, atraumatic. Extraocular eye muscles intact. The patient is wearing glasses. Sclerae are nonicteric. Hearing is within normal limits. No nystagmus. Mucous membranes are moist. NECK: With good range of motion without adenopathy or JVD. CHEST: Less congested. HEART: Regular rate, slight murmur. S1, S2. MUSCULOSKELETAL: Without significant scoliosis, kyphosis or lordosis. The patient has some weakness, walks with use of a cane. Rates her pain as 4+/5 for the upper extremities and a 4+/5 for the lower extremities. IMPRESSION: 1. 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 2. Onset of history Zika with flareups less so with less swelling today. 3. Use of tobacco. The patient continues to smoke. 4. Anxiety. 5. Diabetes type 2. The patient states that she continues to exercise and do her jazzercise. 6. Generalized weakness. 7. Gastroesophageal reflux. 8. Hiatal hernia. 9. Hypertension. 10. Chronic migraine headaches. 11. Depression. 12. Reflex. 13. Sympathetic dystrophy. RECOMMENDATIONS: We discussed treatment option with the patient. At this juncture, we will continue with her current medications. A script for her medications have been written. She is elated that some progress may be made with the lower extremity edema by undergoing laser ablations. This will be need to be performed on 4 separate occasions. She will call us if she has any concerns. [address] [address] PAIN MANAGEMENT CONSULTATION Name: TAMARA KEYS Room: [facility]#: [id number] Admission: 04/28/18 Attend Phys: Nasreen Dockery MD Discharge: Date of : 55 Report #: [id number] We would like to thank you for letting us participate in her care. We hope she continues to improve. <ELECTRONICALLY SIGNED> By: Nasreen Dockery MD 05/30/18 1000 1244 1639N. Gilmer Dockery MD /nt
== END ==
LOC: M.PC 04:03
DX: G57.82 Other specified mononeuropathies of left lower limb (principal); I10 Essential (primary) hypertension; E11.42 Type 2 diabetes mellitus with diabetic polyneuropathy; G43.909 Migraine, unspecified, not intractable, without status migrainosus; K21.9 Gastro-esophageal reflux disease without esophagitis; M79.89 Other specified soft tissue disorders; K44.9 Diaphragmatic hernia without obstruction or gangrene; G90.50 Complex regional pain syndrome I, unspecified; M62.81 Muscle weakness (generalized); F17.200 Nicotine dependence, unspecified, uncomplicated; F32.9 Major depressive disorder, single episode, unspecified; F41.9 Anxiety disorder, unspecified; Z79.899 Other long term (current) drug therapy

== ENCOUNTER → 2018-05-18 | Outpatient (CLI) | payer MEDICARE ==
--- NOTE | 2018-05-18 10:42 | 2DMMODE ---
[place] [address] 2 D/M-MODE ECHOCARDIOGRAM Name: TAMARA KEYS Room: [facility]#: [id number] Admission: 05/18/18 Attend Phys: Davi Blunt, Discharge: Date of : 55 Date of Service: 05/18/18 1041 Report #: [id number] THIS REPORT FOR: //name// APPROVED REPORT Study performed: 05/18/2018 08:59:13 EXAM: Comprehensive 2D, Doppler, and color-flow Echocardiogram Patient Location: Out-Patient Status: routine BSA: 1.81 HR: 90 bpm BP: 120/60 mmHg Other Information Study Quality: Fair Indications Peripheral Edema 2D Dimensions IVSd: 8.12 (7-11mm) LVOT Diam: 19.50 (18-24mm) LVDd: 54.65 mm PWd: 10.90 (7-11mm) Ascending Ao: 28.60 (22-36mm) LVDs: 31.06 (25-40mm) Aortic Root: 25.09 mm Volumes Left Atrial Volume (Systole) LA ESV Index: 14.40 mL/m2 Aortic Valve AoV Peak Paramjit.: 1.50 m/s AO Peak Gr.: 8.97 mmHg LVOT Max P.23 mmHg AO Mean Gr.: 4.79 mmHg LVOT Mean P.01 mmHg LVOT Max V: 1.03 m/s AO V2 VTI: 28.95 cm LVOT Mean V: 0.65 m/s OSCAR (VTI): 2.00 cm2 LVOT V1 VTI: 19.38 cm AI Forrest: 2.38 m/s2 AI PHT: 497.71 ms Mitral Valve E/A Ratio: 0.97 MV Decel. Time: 196.83 [place] [address] 2 D/M-MODE ECHOCARDIOGRAM Name: TAMARA KEYS Room: [facility]#: [id number] Admission: 05/18/18 Attend Phys: Davi Blunt, Discharge: Date of : 55 Date of Service: 05/18/18 1041 Report #: [id number] MV E Max Paramjit.: 0.72 m/s MV PHT: 57.08 ms MVA (PHT): 3.85 cm2 TDI E/Lateral E': 6.55 E/Medial E': 9.00 Medial E' Paramjit.: 0.08 m/s Lateral E' Paramjit.: 0.11 m/s Pulmonary Valve PV Peak Paramjit.: 1.15 m/s PV Peak Gr.: 5.28 mmHg Tricuspid Valve RAP Estimate: 5.00 mmHg TR Peak Gr.: 23.78 mmHg RVSP: 28.78 mmHg PA Pressure: 28.78 mmHg Left Ventricle The left ventricle is normal size. There is normal LV segmental wall motion. There is normal left ventricular wall thickness. Left ventricular systolic function is normal. The left ventricular ejection fraction is within the normal range. LVEF is 60%. The left ventricular diastolic function is normal. Right Ventricle The right ventricle is normal size. The right ventricular systolic function is normal. Atria The left atrium size is normal. The right atrium size is normal. Aortic Valve The aortic valve is normal in structure. Mild to moderate aortic regurgitation. There is no aortic valvular stenosis. Mitral Valve The mitral valve is normal in structure. Mild mitral regurgitation. No evidence of mitral valve stenosis. Tricuspid Valve The tricuspid valve is normal in structure. Mild tricuspid regurgitation. Pulmonic Valve The pulmonary valve is normal in structure. [place] [address] 2 D/M-MODE ECHOCARDIOGRAM Name: GAMALJOHNNIETAMARA Cuadra Room: [facility]#: [id number] Admission: 05/18/18 Attend Phys: Davi Blunt, Discharge: Date of : 55 Date of Service: 05/18/18 1041 Report #: [id number] valvular regurgitation. Great Vessels The aortic root is normal in size. IVC is normal in size and collapses >50% with inspiration. Pericardium There is no pericardial effusion. <Conclusion> The left ventricle is normal size. There is normal left ventricular wall thickness. Left ventricular systolic function is normal. The left ventricular ejection fraction is within the normal range. LVEF is 60%. The left ventricular diastolic function is normal. The right ventricle is normal size. The left atrium size is normal. The aortic valve is normal in structure. Mild to moderate aortic regurgitation. There is no aortic valvular stenosis. The mitral valve is normal in structure. Mild mitral regurgitation. The tricuspid valve is normal in structure. IVC is normal in size and collapses >50% with inspiration. There is no pericardial effusion. There is normal LV segmental wall motion. <ELECTRONICALLY SIGNED> By: Nain Fish MD, FACC 05/18/18 [phone] Nain Fish MD, FACC /INF
== END ==
LOC: M.CRD 08:30
DX: I08.0 Rheumatic disorders of both mitral and aortic valves (principal); R60.0 Localized edema

== ENCOUNTER → 2018-05-20 | Outpatient (CLI) | payer MEDICARE | LOC: M.WC 08:49 | DX: E11.621 Type 2 diabetes mellitus with foot ulcer (principal); L97.511 Non-pressure chronic ulcer of other part of right foot limited to breakdown of skin; L84 Corns and callosities; E11.42 Type 2 diabetes mellitus with diabetic polyneuropathy; E11.36 Type 2 diabetes mellitus with diabetic cataract; E78.00 Pure hypercholesterolemia, unspecified; G43.909 Migraine, unspecified, not intractable, without status migrainosus; G89.4 Chronic pain syndrome; I10 Essential (primary) hypertension; I87.2 Venous insufficiency (chronic) (peripheral); J44.9 Chronic obstructive pulmonary disease, unspecified; K21.9 Gastro-esophageal reflux disease without esophagitis; K70.30 Alcoholic cirrhosis of liver without ascites; M81.0 Age-related osteoporosis without current pathological fracture; F32.9 Major depressive disorder, single episode, unspecified; F41.1 Generalized anxiety disorder; F17.200 Nicotine dependence, unspecified, uncomplicated; Z90.710 Acquired absence of both cervix and uterus ==

== ENCOUNTER → 2018-05-26 | Outpatient (CLI) | payer MEDICARE ==
--- NOTE | 2018-05-30 10:00 | PAINCON ---
[address] [address] PAIN MANAGEMENT CONSULTATION Name: TAMARA KEYS Room: [facility] MAY[facility] Chang#: [id number] Admission: 05/26/18 Attend Phys: Nasreen Dockery MD Discharge: Date of : 55 Report #: [id number] THIS REPORT FOR: //name// CC: Nasreen Chaney MD DATE OF SERVICE: 05/26/2018 CHIEF COMPLAINT: "Here for renewal of medication. I am going to the wound clinic and to the vein clinic." FOLLOWUP HISTORY: The patient is a 63-year-old female who has been followed in the Pain Clinic. As you recall, she has chronic pain involving a number of areas. She has history of chronic lumbar radicular pain as well as some neurogenic pain in her hands and feet. She has decreased sensation in her feet. She did note some problem with her left great toe area. The patient states that she saw some blood on the floor as she walked. Further investigation indicated that she had a wound in this area. Because of the decreased sensation to her feet, she was unable to recognize this. Also, she has some problems with her legs. She has been going to the vein clinic. She has a number of appointments 4 with physicians this weekend, 4 with physicians next week. She feels like she is on a treadmill of visiting physicians. Overall, she feels that the left toe has improved. She was on Keflex and has been changed to clindamycin. She feels that there may be some change in color in her right lower extremity. She attributes this to the wound clinic treatment. ALLERGIES: No known drug allergies. CURRENT MEDICATIONS: Omeprazole 40 mg b.i.d., amitriptyline 50 mg b.i.d., metformin 500 mg daily, Singulair 10 mg, atenolol 25 mg 1-1/2 tablets daily, buspirone 15 mg b.i.d., gabapentin 800 mg t.i.d., Spiriva, Ventolin, Ativan at bedtime, Zanaflex 4 mg at bedtime, Breo 200 mcg steroid/antibiotics. The patient feels that overall her medications continue to be helpful. PAIN CLINIC ASSESSMENT/PQRS: 1. The patient has a history of rheumatoid arthritis. She also has had a number of back surgeries with orthopedic changes. 2. Height 5 feet 7 inches, weight 162 pounds, BMI is 27. 3. Vital signs: Blood pressure 124/75, heart rate 95, respiratory rate 16, room air saturation 97%, temperature 98.5. 4. Pain score: 8/10. 5. Fall history: The patient has not fallen in the last 3 months. 6. Blood thinner: The patient is not on a blood thinning medication. 7. Hypertension: The patient is not being [place] [address] PAIN MANAGEMENT CONSULTATION Name: TAMARA KEYS Room: [facility]#: [id number] Admission: 05/26/18 Attend Phys: Nasreen Dockery MD Discharge: Date of : 55 Report #: [id number] 8. Opioid therapy greater than 6 weeks: The patient receives her medication from one source from the Pain Clinic. 9. Risk assessment tool. 10. Recreational drug use: The patient denies use of recreational drugs. 11. Tobacco: The patient smokes 1 pack of cigarettes per day and has smoked for the last 40 years. We discussed the benefits of decreasing smoking. 12. Alcohol: The patient denies use of alcoholic beverages. PHYSICAL EXAMINATION: GENERAL: The patient is a well-developed, well-nourished, white female. She appears her stated age. She continues to exhibit some shakiness. She does walk with a walker. She does have a productive cough during our visit. HEENT: Normocephalic, atraumatic. Extraocular eye muscles intact. Sclerae nonicteric. Mucous membranes moist. NECK: With good range of motion without adenopathy or JVD. CHEST: Congested with coughing. HEART: Regular rate. S1 and S2. MUSCULOSKELETAL: Without significant scoliosis, kyphosis or lordosis. The patient has some weakness. She walks with her cane and a rolling walker at this juncture. Rates muscle strength as 4+ in the upper extremities and 4+ in the lower extremities. IMPRESSION: 1. Chronic lumbar radicular component with pain down into her legs. 2. Infection of left great toe secondary to decreased sensation in the lower extremities. 3. History of Zika with flareups, less problematic today. 4. Continued use of tobacco. I have discussed the cessation of smoking. 5. Anxiety. 6. Diabetes type 2. The patient states she continues to exercise with her [employer] class. 7. Generalized weakness. 8. Gastroesophageal reflux. 9. Hiatal hernia. 10. Hypertension. 11. Chronic migraine headaches. 12. Depression. 13. Reflex sympathetic dystrophy. RECOMMENDATIONS: We discussed treatment options with the patient. Risks and benefits of her continued use of medication were discussed. The patient feels that these medications are helpful. They enable her to engage in activities she would be unable to without their use. She is aware of that opioids can be problematic and cause addiction. She is also aware that long-term use of opioid medications can become less effective over time secondary to tolerance. Overall, she feels her medications are working well [place] [address] PAIN MANAGEMENT CONSULTATION Name: TAMARA KEYS Room: [facility].#: [id number] Admission: 05/26/18 Attend Phys: Nasreen Dockery MD Discharge: Date of : 55 Report #: [id number] them. A script for her medications have been rewritten. She will follow up in the near future. We would like to thank you for letting us participate in her care. We hope she continues to improve. <ELECTRONICALLY SIGNED> By: Nasreen Dockery MD 05/30/18 1000 0831 [id number]. Gilmer Dockery MD /nt
== END ==
LOC: M.PC 05:15
DX: G89.29 Other chronic pain (principal); F41.9 Anxiety disorder, unspecified; E11.9 Type 2 diabetes mellitus without complications; I10 Essential (primary) hypertension; F32.9 Major depressive disorder, single episode, unspecified; K21.9 Gastro-esophageal reflux disease without esophagitis; F17.210 Nicotine dependence, cigarettes, uncomplicated; R53.1 Weakness; G43.909 Migraine, unspecified, not intractable, without status migrainosus; Z79.899 Other long term (current) drug therapy

== ENCOUNTER → 2018-05-27 | Outpatient (CLI) | payer MEDICARE | LOC: M.WC 05:09 | DX: E11.621 Type 2 diabetes mellitus with foot ulcer (principal); L97.521 Non-pressure chronic ulcer of other part of left foot limited to breakdown of skin; L84 Corns and callosities; E11.42 Type 2 diabetes mellitus with diabetic polyneuropathy; E11.36 Type 2 diabetes mellitus with diabetic cataract; E78.00 Pure hypercholesterolemia, unspecified; G43.909 Migraine, unspecified, not intractable, without status migrainosus; G89.4 Chronic pain syndrome; I87.2 Venous insufficiency (chronic) (peripheral); I10 Essential (primary) hypertension; J44.9 Chronic obstructive pulmonary disease, unspecified; K21.9 Gastro-esophageal reflux disease without esophagitis; K70.30 Alcoholic cirrhosis of liver without ascites; M81.0 Age-related osteoporosis without current pathological fracture; F32.9 Major depressive disorder, single episode, unspecified; F41.1 Generalized anxiety disorder; F17.200 Nicotine dependence, unspecified, uncomplicated ==

== ENCOUNTER → 2018-06-03 | Outpatient (CLI) | payer MEDICARE | LOC: M.WC 04:58 | DX: E11.621 Type 2 diabetes mellitus with foot ulcer (principal); L97.521 Non-pressure chronic ulcer of other part of left foot limited to breakdown of skin; L84 Corns and callosities; E11.51 Type 2 diabetes mellitus with diabetic peripheral angiopathy without gangrene; E11.42 Type 2 diabetes mellitus with diabetic polyneuropathy; E11.36 Type 2 diabetes mellitus with diabetic cataract; E78.00 Pure hypercholesterolemia, unspecified; G89.4 Chronic pain syndrome; G43.109 Migraine with aura, not intractable, without status migrainosus; I87.2 Venous insufficiency (chronic) (peripheral); I10 Essential (primary) hypertension; J44.9 Chronic obstructive pulmonary disease, unspecified; K21.9 Gastro-esophageal reflux disease without esophagitis; K70.30 Alcoholic cirrhosis of liver without ascites; M51.36 Other intervertebral disc degeneration, lumbar region; M81.0 Age-related osteoporosis without current pathological fracture; F17.200 Nicotine dependence, unspecified, uncomplicated; F32.9 Major depressive disorder, single episode, unspecified; F41.1 Generalized anxiety disorder ==

== ENCOUNTER → 2018-06-10 | Outpatient (CLI) | payer MEDICARE | LOC: M.WC 05:26 | DX: E11.621 Type 2 diabetes mellitus with foot ulcer (principal); L97.521 Non-pressure chronic ulcer of other part of left foot limited to breakdown of skin; E11.42 Type 2 diabetes mellitus with diabetic polyneuropathy; E11.36 Type 2 diabetes mellitus with diabetic cataract; L84 Corns and callosities; I10 Essential (primary) hypertension; N32.81 Overactive bladder; K21.9 Gastro-esophageal reflux disease without esophagitis; I87.2 Venous insufficiency (chronic) (peripheral); M81.0 Age-related osteoporosis without current pathological fracture; E78.00 Pure hypercholesterolemia, unspecified; G89.4 Chronic pain syndrome; J44.9 Chronic obstructive pulmonary disease, unspecified; F17.200 Nicotine dependence, unspecified, uncomplicated; F32.9 Major depressive disorder, single episode, unspecified; F41.1 Generalized anxiety disorder ==

== ENCOUNTER → 2018-06-17 | Outpatient (CLI) | payer MEDICARE | LOC: M.WC 03:44 | DX: E11.621 Type 2 diabetes mellitus with foot ulcer (principal); L97.522 Non-pressure chronic ulcer of other part of left foot with fat layer exposed; L84 Corns and callosities; J44.9 Chronic obstructive pulmonary disease, unspecified; E11.42 Type 2 diabetes mellitus with diabetic polyneuropathy; E11.36 Type 2 diabetes mellitus with diabetic cataract; E78.00 Pure hypercholesterolemia, unspecified; G43.109 Migraine with aura, not intractable, without status migrainosus; G89.4 Chronic pain syndrome; I10 Essential (primary) hypertension; K21.9 Gastro-esophageal reflux disease without esophagitis; K70.30 Alcoholic cirrhosis of liver without ascites; M81.0 Age-related osteoporosis without current pathological fracture; F32.9 Major depressive disorder, single episode, unspecified; F17.200 Nicotine dependence, unspecified, uncomplicated; F41.1 Generalized anxiety disorder ==

== ENCOUNTER → 2018-06-23 | Outpatient (CLI) | payer MEDICARE | LOC: M.WC 04:53 | DX: E11.621 Type 2 diabetes mellitus with foot ulcer (principal); L97.522 Non-pressure chronic ulcer of other part of left foot with fat layer exposed; L84 Corns and callosities; E11.42 Type 2 diabetes mellitus with diabetic polyneuropathy; E11.36 Type 2 diabetes mellitus with diabetic cataract; E78.00 Pure hypercholesterolemia, unspecified; G89.4 Chronic pain syndrome; G43.109 Migraine with aura, not intractable, without status migrainosus; I10 Essential (primary) hypertension; K21.9 Gastro-esophageal reflux disease without esophagitis; K70.30 Alcoholic cirrhosis of liver without ascites; J44.9 Chronic obstructive pulmonary disease, unspecified; M81.0 Age-related osteoporosis without current pathological fracture; F32.9 Major depressive disorder, single episode, unspecified; F41.1 Generalized anxiety disorder; F17.200 Nicotine dependence, unspecified, uncomplicated ==

== ENCOUNTER → 2018-06-23 | Outpatient (CLI) | payer MEDICARE ==
--- NOTE | 2018-06-29 16:39 | PAINCON ---
[address] [address] PAIN MANAGEMENT CONSULTATION Name: TAMARA KEYS Room: [facility] Charlene#: [id number] Admission: 06/23/18 Attend Phys: Nasreen Dockery MD Discharge: Date of : 55 Report #: [id number] THIS REPORT FOR: //name// CC: Nasreen Chaney DATE OF SERVICE: 06/23/2018 CHIEF COMPLAINT: Low back pain in my foot, foot infection is being treated. FOLLOWUP HISTORY: The patient is a 63-year-old female who has been followed in the Pain Clinic because of chronic back pain, knee pain and hand pain. As you recall, she is having some problems with her right great toe. She has been followed by the Wound Clinic. She was provided with a special shoe is wedge-shaped and helps to decrease the amount of pressure on her foot. She feels that may have increased some pain and discomfort she is having. It upset her gait. She feels that the laser surgeries have improved the blood circulation. She continues to follow up in the [employer] classes. She goes at 9 o'clock each morning. Feels that is helpful. Feels that the socialization of portion of it helped make her life more bearable. States that she had some chit chats with her friends. Has noted some of the redness in the lower extremity seems like it is lessened. Feels that the blood flow is reasonably good. Feels that her coughing is a little bit better. Continues to have some decreased sensation in her foot. She has been treated with an antibiotic. ALLERGIES: No known drug allergies. MEDICATIONS: Omeprazole 40 mg b.i.d., amitriptyline 50 mg b.i.d., metformin 500 mg, Singulair 10 mg, atenolol 25 mg, 1-1/2 tablets daily, buspirone 15 mg b.i.d., gabapentin 800 mg t.i.d., Spiriva, Ventolin, Ativan at bedtime, Zanaflex 4 mg at bedtime, Breo 200 mcg steroid/antibiotics. PAIN CLINIC ASSESSMENT/PQRS: 1. The patient has a history of rheumatoid arthritis. She has some orthopedic changes in her low back. 2. Height is 5 feet 7 inches, weight 165 pounds, BMI is 27.6. 3. Vital signs: Blood pressure 140/86, heart rate 84, respiratory rate 18, room air saturation 97%, temperature 98.2. 4. Pain score: 5/10 for pain control. 5. Fall history: The patient has not fallen in the last 3 months. Does walk using a rolling walker. 6. Blood thinner. The patient is not on a blood thinning medication. 7. Hypertension. The patient has not been treated for hypertension. 8. Opioid therapy greater than 6 weeks. The patient receives her medications from one source, the Pain Clinic. 9. Risk assessment tool, [place] [address] PAIN MANAGEMENT CONSULTATION Name: TAMARA KEYS [id number] Admission: 06/23/18 Attend Phys: Nasreen Dockery MD Discharge: Date of : 55 Report #: [id number] 10. Recreational drug use. The patient denies use of recreational drugs. 11. Tobacco: The patient smokes 1 pack of cigarettes per day. I have discussed the ramifications of tobacco smoking. She has a 99-[id number]-utfp history. 12. Alcohol: The patient denies use of alcoholic beverages. PHYSICAL EXAMINATION: GENERAL: The patient is a well-developed, well-nourished white female. Appears her stated age. She is alert and oriented. There is some shakiness in her hands. She has a less productive cough that she did at the last visit. HEENT: Normocephalic, atraumatic. Extraocular eye muscles intact. Sclerae nonicteric. Mucous membranes are moist. The patient wears glasses. NECK: Without JVD or adenopathy. CHEST: Congestion with some decreased coughing. HEART: Regular rate. S1, S2. MUSCULOSKELETAL: Without significant scoliosis, kyphosis or lordosis. The patient has some weakness in the lower extremity. Walks with use of her cane/rolling walker. Has pain and discomfort in the left great toe. She states that her redness and edema in the lower extremity seems to have improved since the laser surgery. She would like to have her medications. IMPRESSION: 1. Chronic lumbar radicular pain with pain radiates down into her legs. 2. Infection of left great toe decreased sensation in the lower extremities. 3. History of Zika virus with flareups, less problematic with decreasing inflammation in her legs today. 3. Continued use of tobacco. The patient has continued to try to decrease tobacco use. 4. Anxiety. 5. Diabetes type 2. The patient states she continues to exercise and jazzercise class and goes 9:00 a.m. each day. 6. Generalized weakness. 7. Gastroesophageal reflux. 8. Hiatal hernia. 9. Hypertension. 10. Chronic migraine headaches. 11. Depression. 12. Reflex sympathetic dystrophy. RECOMMENDATIONS: We discussed treatment options with the patient. At this juncture, she feels her medications are helpful. She continues to be active and goes to the jazzercise class on a regular basis. She feels that this is helpful socially and mentally. She would like to continue with her medications. She states that her sensorium is clear. Not having significant problems with GI or bladder function with the use of the opioid medications. A script for her medications have been rewritten. She will call us if [place] [address] PAIN MANAGEMENT CONSULTATION Name: LUDMILATAMARA Room: [facility]#: [id number] Admission: 06/23/18 Attend Phys: Nasreen Dockery MD Discharge: Date of : 55 Report #: [id number] We would like to thank you for letting us participate in her care. We hope she continues to improve. <ELECTRONICALLY SIGNED> By: Nasreen Dockery MD 06/29/18 1639 [id number] 1033N. Gilmer Dockery MD /nt
== END ==
LOC: M.PC 05:08
DX: M54.16 Radiculopathy, lumbar region (principal); F17.291 Nicotine dependence, other tobacco product, in remission; F41.9 Anxiety disorder, unspecified; I10 Essential (primary) hypertension; E11.9 Type 2 diabetes mellitus without complications; M62.81 Muscle weakness (generalized); K21.9 Gastro-esophageal reflux disease without esophagitis; F32.9 Major depressive disorder, single episode, unspecified; G43.909 Migraine, unspecified, not intractable, without status migrainosus; K44.9 Diaphragmatic hernia without obstruction or gangrene; G90.50 Complex regional pain syndrome I, unspecified; L08.89 Other specified local infections of the skin and subcutaneous tissue; B97.89 Other viral agents as the cause of diseases classified elsewhere; Z86.19 Personal history of other infectious and parasitic diseases

== ENCOUNTER → 2018-07-01 | Outpatient (CLI) | payer MEDICARE | LOC: M.WC 04:48 | DX: E11.621 Type 2 diabetes mellitus with foot ulcer (principal); L97.522 Non-pressure chronic ulcer of other part of left foot with fat layer exposed; L84 Corns and callosities; E11.42 Type 2 diabetes mellitus with diabetic polyneuropathy; E78.00 Pure hypercholesterolemia, unspecified; G89.4 Chronic pain syndrome; G43.109 Migraine with aura, not intractable, without status migrainosus; I10 Essential (primary) hypertension; J44.9 Chronic obstructive pulmonary disease, unspecified; K21.9 Gastro-esophageal reflux disease without esophagitis; K70.30 Alcoholic cirrhosis of liver without ascites; M81.0 Age-related osteoporosis without current pathological fracture; M85.80 Other specified disorders of bone density and structure, unspecified site; F41.9 Anxiety disorder, unspecified; F32.9 Major depressive disorder, single episode, unspecified; F17.200 Nicotine dependence, unspecified, uncomplicated ==

== ENCOUNTER → 2018-07-15 | Outpatient (CLI) | payer MEDICARE | LOC: M.WC 04:33 | DX: E11.621 Type 2 diabetes mellitus with foot ulcer (principal); L97.522 Non-pressure chronic ulcer of other part of left foot with fat layer exposed; L84 Corns and callosities; E11.36 Type 2 diabetes mellitus with diabetic cataract; E11.42 Type 2 diabetes mellitus with diabetic polyneuropathy; E78.00 Pure hypercholesterolemia, unspecified; G43.109 Migraine with aura, not intractable, without status migrainosus; G89.4 Chronic pain syndrome; I10 Essential (primary) hypertension; J44.9 Chronic obstructive pulmonary disease, unspecified; K70.30 Alcoholic cirrhosis of liver without ascites; K21.9 Gastro-esophageal reflux disease without esophagitis; M85.88 Other specified disorders of bone density and structure, other site; M81.0 Age-related osteoporosis without current pathological fracture; F32.9 Major depressive disorder, single episode, unspecified; F41.9 Anxiety disorder, unspecified; F17.200 Nicotine dependence, unspecified, uncomplicated ==

== ENCOUNTER → 2018-07-21 | Outpatient (CLI) | payer MEDICARE ==
[~2018-07-21] MED LIST changes: +MOBIC15 MG PO
== END ==
LOC: M.WC 04:47
DX: E11.621 Type 2 diabetes mellitus with foot ulcer (principal); L97.522 Non-pressure chronic ulcer of other part of left foot with fat layer exposed; L84 Corns and callosities; E11.42 Type 2 diabetes mellitus with diabetic polyneuropathy; E11.36 Type 2 diabetes mellitus with diabetic cataract; E78.00 Pure hypercholesterolemia, unspecified; G43.109 Migraine with aura, not intractable, without status migrainosus; G89.4 Chronic pain syndrome; I10 Essential (primary) hypertension; J44.9 Chronic obstructive pulmonary disease, unspecified; K21.9 Gastro-esophageal reflux disease without esophagitis; K70.30 Alcoholic cirrhosis of liver without ascites; M85.80 Other specified disorders of bone density and structure, unspecified site; M81.0 Age-related osteoporosis without current pathological fracture; F32.9 Major depressive disorder, single episode, unspecified; F41.9 Anxiety disorder, unspecified; F17.200 Nicotine dependence, unspecified, uncomplicated

== ENCOUNTER → 2018-07-21 | Outpatient (CLI) | payer MEDICARE ==
--- NOTE | 2018-07-22 17:20 | PAINCON ---
[address] [address] PAIN MANAGEMENT CONSULTATION Name: TAMARA KEYS Room: [facility] Chang#: [id number] Admission: 07/21/18 Attend Phys: Nasreen Dockery MD Discharge: Date of : 55 Report #: [id number] THIS REPORT FOR: //name// CC: Nasreen Chaney DATE OF SERVICE: 07/21/2018 HISTORY: The patient is a 63-year-old female, who has been followed in the pain clinic. As you recall, she has a complex history. She has chronic back pain. She has knee pain as well as hand pain. She has had some problems with her feet. She states that she underwent laser ablation in her feet in her lower extremities. She then noticed some changes of color in her toes on the left and the right side. They became darken, seem to have improved. She has noted a worsening of pain and discomfort in the cold weather. She has noted some problems with aching in her legs. At this juncture, she is now undergoing sclerotherapy involving her feet. She states that this therapy will cause blood flow to increase in certain areas and decrease in others. Overall, she feels that her medications that she has taken, the hydrocodone, amitriptyline, gabapentin, and tizanidine are helpful. She feels that by using her medication she is 50% improved. She continues to be active, jazzercise, and staying active in the mornings. She sometimes has exacerbations in her legs as a result of the Zika virus. This is not problematic at this juncture. MEDICATIONS: The patient is on omeprazole 40 mg b.i.d., amitriptyline 50 mg, metformin 500 mg, Singulair 10 mg, atenolol 25 mg 1-1/2 tablets daily, buspirone 15 mg b.i.d., gabapentin 800 mg t.i.d., Spiriva, Ventolin, Ativan at bedtime, Zanaflex 4 mg at bedtime, and Breo 200 mcg/antibiotics. ALLERGIES: No known drug allergies. PAIN CLINIC ASSESSMENT AND PQRS: 1. The patient has a history of rheumatoid arthritis. She is being treated. She also has osteoarthritic problems in her low back. 2. Pain intensity is 4-5/10. 3. Fall history: The patient has not fallen in the last 3 months. She does ambulate with a rolling walker. 4. Blood thinner. The patient is not on a blood thinning medication. 5. Hypertension. The patient is not being treated for hypertension. 6. Opioid therapy greater than 6 weeks. The patient has received her medications from one source, the pain clinic. 7. Risk assessment tool, low for opioid use. 8. Recreational drug use. The patient denies use of recreational drugs. 9. Tobacco: The patient smokes 1 pack of cigarettes per day. She states that she continues to try to decrease the use of her cigarettes. She has a 21-[id number]-zagr history. We again described the improvement [place] [address] PAIN MANAGEMENT CONSULTATION Name: TAMARA KEYS Room: [facility]#: [id number] Admission: 07/21/18 Attend Phys: Nasreen Dockery MD Discharge: Date of : 55 Report #: [id number] she stopped using tobacco. This use of nicotine can adversely affect blood flow. 10. Alcohol: The patient denies use of alcoholic beverages. PHYSICAL EXAMINATION: GENERAL: The patient is a well-developed, well-nourished white female. She appears her stated age. She is alert and oriented x 3. She has some shaking components to her hands. She has a ____ productive cough. She is coughing less today than in previous visits. Height is 5 feet 10 inches, weight is 168 pounds, and BMI is 25. VITAL SIGNS: Blood pressure is 154/83, heart rate is 110/16, respiratory rate is 16, room air saturation is 93%, and temperature is 98.3. NECK: Without JVD or adenopathy. CHEST: Left congestion is noted. HEART: Regular rate. S1, S2. MUSCULOSKELETAL: Without significant scoliosis, kyphosis, or lordosis. The patient has some weakness in her lower back. She walks with use of a cane and a rolling walker. She has some redness in her lower extremities. She feels that these have been improved since her therapy overall. IMPRESSION: 1. Chronic lumbar radicular pain with pain that radiates down into her legs. 2. Infection in the great toe, which is improved. 3. History of Zika virus with flareups, less problematic today. 4. Continued use of tobacco, I have discussed decreasing use of tobacco. 5. Anxiety. 6. Diabetes type 2. The patient continues to exercise in her jazzercise class. 7. Generalized weakness. 8. Gastroesophageal reflux. 9. Hiatal hernia. 10. Hypertension. 11. Chronic migraine headaches. 12. Depression. 13. Reflex sympathetic dystrophy type symptoms. RECOMMENDATIONS: We have discussed treatment options with the patient. Risks and benefits at this juncture of opioids were again reviewed. Possible complications of opioids include addiction as well as decreased efficacy secondary to development of tolerance. Overall, the patient feels that her medications are working reasonably well. She would like to have them continued. She is having no complications. She would like renewal of her hydrocodone 10/325 one p.o. q.i.d., total of 120; amitriptyline 50 mg b.i.d., total of 60 tablets; gabapentin 800 mg t.i.d., total of 90; tizanidine 4 mg at bedtime, and meloxicam 15 mg daily. [place] [address] PAIN MANAGEMENT CONSULTATION Name: TAMARA KEYS Room: [facility]#: [id number] Admission: 07/21/18 Attend Phys: Nasreen Dockery MD Discharge: Date of : 55 Report #: [id number] We would like to thank you for letting us to participate in her care. We hope she continues to improve. <ELECTRONICALLY SIGNED> By: Nasreen Dockery MD 07/22/18 1720 [id number]. Gilmer Dockery MD /HEDY
== END ==
LOC: M.PC 04:38
DX: M54.16 Radiculopathy, lumbar region (principal); G89.29 Other chronic pain; M62.81 Muscle weakness (generalized); E11.9 Type 2 diabetes mellitus without complications; I10 Essential (primary) hypertension; G43.909 Migraine, unspecified, not intractable, without status migrainosus; K21.9 Gastro-esophageal reflux disease without esophagitis; K44.9 Diaphragmatic hernia without obstruction or gangrene; G90.50 Complex regional pain syndrome I, unspecified; F32.9 Major depressive disorder, single episode, unspecified; F41.9 Anxiety disorder, unspecified; F17.211 Nicotine dependence, cigarettes, in remission; Z86.19 Personal history of other infectious and parasitic diseases

== ENCOUNTER → 2018-07-28 | Outpatient (CLI) | payer MEDICARE | LOC: M.WC 05:23 | DX: E11.621 Type 2 diabetes mellitus with foot ulcer (principal); L97.521 Non-pressure chronic ulcer of other part of left foot limited to breakdown of skin; E11.36 Type 2 diabetes mellitus with diabetic cataract; I10 Essential (primary) hypertension; I87.2 Venous insufficiency (chronic) (peripheral); L84 Corns and callosities; N32.81 Overactive bladder; K21.9 Gastro-esophageal reflux disease without esophagitis; M81.0 Age-related osteoporosis without current pathological fracture; G89.4 Chronic pain syndrome; J44.9 Chronic obstructive pulmonary disease, unspecified; F41.1 Generalized anxiety disorder; F32.9 Major depressive disorder, single episode, unspecified; F17.200 Nicotine dependence, unspecified, uncomplicated ==

== ENCOUNTER → 2018-08-05 | Outpatient (CLI) | payer MEDICARE | LOC: M.WC 03:49 | DX: E11.621 Type 2 diabetes mellitus with foot ulcer (principal); L97.522 Non-pressure chronic ulcer of other part of left foot with fat layer exposed; L84 Corns and callosities; E11.42 Type 2 diabetes mellitus with diabetic polyneuropathy; E11.36 Type 2 diabetes mellitus with diabetic cataract; E78.00 Pure hypercholesterolemia, unspecified; G89.4 Chronic pain syndrome; G43.101 Migraine with aura, not intractable, with status migrainosus; I10 Essential (primary) hypertension; J44.9 Chronic obstructive pulmonary disease, unspecified; K21.9 Gastro-esophageal reflux disease without esophagitis; K70.30 Alcoholic cirrhosis of liver without ascites; M81.0 Age-related osteoporosis without current pathological fracture; M85.88 Other specified disorders of bone density and structure, other site; F41.9 Anxiety disorder, unspecified; F32.9 Major depressive disorder, single episode, unspecified; F17.200 Nicotine dependence, unspecified, uncomplicated ==

== ENCOUNTER → 2018-08-11 | Outpatient (CLI) | payer MEDICARE | LOC: M.WC 04:31 | DX: E11.621 Type 2 diabetes mellitus with foot ulcer (principal); L97.522 Non-pressure chronic ulcer of other part of left foot with fat layer exposed; S81.011A Laceration without foreign body, right knee, initial encounter; L84 Corns and callosities; E11.42 Type 2 diabetes mellitus with diabetic polyneuropathy; E11.36 Type 2 diabetes mellitus with diabetic cataract; E78.00 Pure hypercholesterolemia, unspecified; G89.4 Chronic pain syndrome; G43.109 Migraine with aura, not intractable, without status migrainosus; I10 Essential (primary) hypertension; J44.9 Chronic obstructive pulmonary disease, unspecified; K21.9 Gastro-esophageal reflux disease without esophagitis; K70.30 Alcoholic cirrhosis of liver without ascites; M81.0 Age-related osteoporosis without current pathological fracture; M85.88 Other specified disorders of bone density and structure, other site; F17.200 Nicotine dependence, unspecified, uncomplicated; F32.9 Major depressive disorder, single episode, unspecified; F41.9 Anxiety disorder, unspecified; X58.XXXA Exposure to other specified factors, initial encounter; Y93.89 Activity, other specified; Y92.89 Other specified places as the place of occurrence of the external cause; Y99.8 Other external cause status ==

== ENCOUNTER → 2018-08-18 | Outpatient (CLI) | payer MEDICARE | LOC: M.PC 09:00 | DX: M54.5 Low back pain (principal); G89.29 Other chronic pain; M25.561 Pain in right knee; M25.562 Pain in left knee; M79.641 Pain in right hand; M79.642 Pain in left hand ==

== ENCOUNTER → 2018-08-18 | Outpatient (CLI) | payer MEDICARE ==
--- NOTE | ~2018-08-18 | PAINCON ---
[address] [address] PAIN MANAGEMENT CONSULTATION Name: TAMARA KEYS Room: [facility] Chang#: [id number] Admission: 08/18/18 Attend Phys: Jose L Pak, Discharge: Date of : 55 Report #: [id number] THIS REPORT FOR: //name// CC: Meka Chaney MD DATE OF SERVICE: 08/18/2018 PRIMARY CARE PHYSICIAN: Haroldo Chaney MD CHIEF COMPLAINT: Here for medication renewal. HISTORY: The patient is a 63-year-old female who has a complex history. Has back pain. Has problems with her lower extremities. The patient recently fell. States that she tore her skin, it was on the right knee. Had some bruising of her left knee. States that she is walking and going into the kitchen. The plug in her cell phone. She fell, did not trip. Has noted some worsening of pain and discomfort in her right knee and left knee. She continues to have some problem with an ulcer involving of the left toe. Has undergone physical therapy and occupational therapy. Feels that the occupational therapy is helpful. She is having more problems with her hands. She states that she does have dropped foot on both feet. They are considering getting an orthotic for the right foot to be helpful in decreasing her falls. She states that when she falls it can be a very quick episode. She is not aware that she is about to fall. Some days, she notes that her balance is less than others. Denies that any of this is associated with any of the medications that she is using. She is considering going to [place] to see her brother. ALLERGIES: No known drug allergies. CURRENT MEDICATIONS: Omeprazole 40 mg b.i.d., amitriptyline 50 mg, metformin 500 mg, Singulair 10 mg, atenolol 25 mg 1-1/2 tablets daily, buspirone 15 mg b.i.d., gabapentin 800 mg t.i.d., Spiriva, Ventolin, Ativan at bedtime, Zanaflex 4 mg at bedtime, Breo 200 mcg. PAIN CLINIC ASSESSMENT/PQRS: 1. The patient has a history of rheumatoid arthritis. She is being treated. She has osteoarthritis with problems in her low back area. Pain intensity was 5/10. 2. VITAL SIGNS: Blood pressure 152/81, heart rate 90, respiratory rate 18, room air saturation 95%, temperature 98.3. 3. Height 5 feet, 5 inches, weight 178 pounds, BMI is 29.5. 4. Fall history: The patient has fallen as we discussed in the history of present illness. 5. Blood thinner. The patient is not on [place] [address] PAIN MANAGEMENT CONSULTATION Name: TAMARA KEYS RAMIROJULIA Room: [facility]#: [id number] Admission: 08/18/18 Attend Phys: Jose L Pak, Discharge: Date of : 55 Report #: [id number] 6. Hypertension. The patient is being treated for hypertension. 7. Opioids greater than 6 weeks. The patient receives her medication from one source, the pain clinic. 8. Risk assessment tool, low for opioid use. 9. Functional assessment tool. 10. Recreational drug use, the patient denies use of recreational drugs. 11. Tobacco. The patient continues to smoke 1 pack of cigarettes per day. 12. Alcohol. The patient denies use of alcoholic beverages. PHYSICAL EXAMINATION: GENERAL: The patient is a well-developed, well-nourished white female. Appears her stated age. She is alert and oriented x 3. Her affect is appropriate. Has usual shaking of bones in her hands. No cough is noted today. VITAL SIGNS: Blood pressure listed above. NECK: Without JVD or adenopathy. CHEST: Without congestion noted. HEART: Regular rate. S1, S2. MUSCULOSKELETAL: Without significant scoliosis, kyphosis or lordosis. The patient has some weakness in her lower extremities, 4+ in the lower extremities. Has a healing scar/bruise on her right knee. It is about the size of a quarter. The left side has ecchymoses in the knee area as well as a result of her fall. The patient walks with use of a cane. Also, use a rolling walker at home. IMPRESSION: 1. Chronic lumbar radicular pain radiates down into her legs. 2. History of infection of the great toe, which continues to improve. 3. History of Zika virus with flareups, less problematic today. 4. Continued use of tobacco. 5. Anxiety. 6. Diabetes type 2. The patient continues to do jazzercise class. 7. Generalized weakness. 8. Gastroesophageal reflux. 9. Hiatal hernia. 10. Hypertension. 11. Chronic migraine headaches. 12. Depression. 13. Reflex sympathetic dystrophy type symptoms. RECOMMENDATIONS: We discussed treatment options with the patient. The patient states that she frequently falls. She states that she is going to get a brace for right foot to help and lessen the chance that she has with have dropped foot type symptoms and fall. We have explained to her that the use of a bicycle helmet might be quite efficacious. We had a number of patients who have when they were of unsteady, particularly when they go to the bathroom or in the kitchen on those days when they are unsteady wear a [place] [address] PAIN MANAGEMENT CONSULTATION Name: TAMARA KEYS Room: [facility].#: [id number] Admission: 08/18/18 Attend Phys: Jose L Pak, Discharge: Date of : 55 Report #: [id number] have told me that they have fallen, but they had a helmet in place and did not suffer an injury. She has been given that scenario and hopefully she will take up on it and have less of a problem with falls. She states that she would like to go and see her brother in [place]. Hopefully, she will be able to make it. Hopefully, things will go well. She continues to be followed up by physical therapy and occupational therapy and by the Wound Clinic. A script for her medications have been rewritten. They are amitriptyline 50 mg 2 tablets b.i.d., gabapentin 800 mg t.i.d., Meloxicam 15 mg 1 daily as well as tizanidine 4 mg p.r.n. and hydrocodone 1 tablet 10 mg p.o. q.i.d. We would like to thank you for letting us for letting us participate in her care. We hope she continues to improve. By: [id number]. Gilmer Dockery MD /HEDY
== END ==
LOC: M.WC 08:00
DX: E11.621 Type 2 diabetes mellitus with foot ulcer (principal); L97.521 Non-pressure chronic ulcer of other part of left foot limited to breakdown of skin; S81.011D Laceration without foreign body, right knee, subsequent encounter; L84 Corns and callosities; E11.42 Type 2 diabetes mellitus with diabetic polyneuropathy; E11.36 Type 2 diabetes mellitus with diabetic cataract; E78.00 Pure hypercholesterolemia, unspecified; G89.4 Chronic pain syndrome; G43.109 Migraine with aura, not intractable, without status migrainosus; I10 Essential (primary) hypertension; J44.9 Chronic obstructive pulmonary disease, unspecified; K21.9 Gastro-esophageal reflux disease without esophagitis; K70.30 Alcoholic cirrhosis of liver without ascites; M85.88 Other specified disorders of bone density and structure, other site; M81.0 Age-related osteoporosis without current pathological fracture; N32.81 Overactive bladder; F17.200 Nicotine dependence, unspecified, uncomplicated; F41.9 Anxiety disorder, unspecified; F32.9 Major depressive disorder, single episode, unspecified; X58.XXXD Exposure to other specified factors, subsequent encounter

== ENCOUNTER → 2018-08-25 | Outpatient (CLI) | payer MEDICARE | LOC: M.WC 05:15 | DX: E11.621 Type 2 diabetes mellitus with foot ulcer (principal); L97.521 Non-pressure chronic ulcer of other part of left foot limited to breakdown of skin; S81.011D Laceration without foreign body, right knee, subsequent encounter; S61.502A Unspecified open wound of left wrist, initial encounter; E11.36 Type 2 diabetes mellitus with diabetic cataract; L84 Corns and callosities; I10 Essential (primary) hypertension; N32.81 Overactive bladder; K21.9 Gastro-esophageal reflux disease without esophagitis; I87.2 Venous insufficiency (chronic) (peripheral); G89.4 Chronic pain syndrome; J44.9 Chronic obstructive pulmonary disease, unspecified; F32.9 Major depressive disorder, single episode, unspecified; F41.1 Generalized anxiety disorder; F17.200 Nicotine dependence, unspecified, uncomplicated; Z87.01 Personal history of pneumonia (recurrent); X58.XXXD Exposure to other specified factors, subsequent encounter; X58.XXXA Exposure to other specified factors, initial encounter; Y93.89 Activity, other specified; Y92.89 Other specified places as the place of occurrence of the external cause; Y99.8 Other external cause status ==

== ENCOUNTER → 2018-09-08 | Outpatient (CLI) | payer MEDICARE ==
--- NOTE | ~2018-09-08 | PAINCON ---
[address] [address] PAIN MANAGEMENT CONSULTATION Name: TAMARA KEYS Room: [facility]#: [id number] Admission: 09/08/18 Attend Phys: Nasreen Dockery MD Discharge: Date of : 55 Report #: [id number] THIS REPORT FOR: //name// CC: Meka Dong MD DATE OF SERVICE: 09/08/2018 FOLLOWUP COMPLAINT: "Here for medication renewal and I am going to [place] to see my brother for change of weather." HISTORY: The patient is a 63-year-old female with the history, which is quite complex. She has pain in the lower extremities. She has fallen a number of times and bruised her knees. She states that she fell on the back deck of her house. Also, fell while walking into the kitchen. She feels that her drop foot is the part of problem. She is being treated/fitted for a brace to improve ambulation. She has noted some bruising on both her left and her right knee. It is continuing to follow up with her left great toe. She has been in wound care for about 4 months. She feels that it is slowly improving. She feels that it started after wearing some compression stockings. Again, she does not recall any trauma. She is scheduled to see a charrer. She states that she had an appointment, but the weather was bad a couple of days ago. Her ride was unable to take her. She is now rescheduled for followup in the near future. She is going to see her brother in [place]. She is going to fly. ALLERGIES: No known drug allergies. CURRENT MEDICATIONS: Omeprazole 40 mg b.i.d., amitriptyline 50 mg, metformin 500 mg, Singulair 10 mg, atenolol 25 mg 1-1/2 tablets daily, buspirone 15 mg b.i.d., gabapentin 800 mg t.i.d., Spiriva Ventolin, Ativan at bedtime, Zanaflex 4 mg, Breo 200 mcg. PAIN CLINIC ASSESSMENT/PQRS 1. The patient has a history of rheumatoid arthritis. She also has some osteoarthritic problems in her low back area. 2. Height 5 feet 5 inches, weight 171 pounds, BMI is 28.9. 3. Vital signs: Blood pressure 138/47, heart rate 85, respiratory rate 16, room air saturation 96%, temperature 98.1. 4. Pain intensity 5-6/10. 5. Fall risk as per HPI. 6. Blood thinner. The patient is not on a blood thinning medication. 7. History of hypertension. The patient is being treated for hypertension. 8. Opioids greater than 6 weeks. She [facility] [place] [address] PAIN MANAGEMENT CONSULTATION Name: TAMARA KEYS Room: [facility] Charlene#: [id number] Admission: 09/08/18 Attend Phys: Nasreen Dockery MD Discharge: Date of : 55 Report #: [id number] 9. Risk assessment tool, low for opioid use . 10. Functional assessment tool. 11. Recreational drug use. The patient denies use of recreational drugs. 12. Tobacco: The patient continues to smoke cigarettes. We again discussed the benefits of smoking cessation. She smokes 1 pack of cigarettes per day. 13. Alcohol: The patient denies use of alcoholic beverages. PHYSICAL EXAMINATION: GENERAL: The patient is a well-developed, well-nourished white female. She appears her stated age. She is alert and oriented x 3. Her affect is appropriate. Speech is fluent. HEENT: Normocephalic, atraumatic. NECK: Without JVD or adenopathy. CHEST: Somewhat congested. The patient continues to cough and clear throat. HEART: Regular rate. MUSCULOSKELETAL: Upper extremities judged to be 4/5 for the major muscle groups. The patient is without significant scoliosis, kyphosis or lordosis. She does walk with use of a rolling walker. She complains of some ecchymotic areas around her knees from falling. IMPRESSION: 1. Chronic lumbar radicular pain, which continues to radiate down into her legs. 2. History of infection of her great toe, which continues to improve. Follow up in the wound clinic. 3. History of Zika virus flare-ups, not problematic today. 4. Continued use of tobacco. I have discussed the benefits of cessation. 5. Anxiety. 6. Diabetes type 2. Continues to stay active and her jazzercise class. 7. Generalized weakness. 8. Gastroesophageal reflux disease. 9. Hiatal hernia. 10. Hypertension. 11. Migraine headaches. 12. Depression. 13. Reflex. 14. Sympathetic dystrophy. RECOMMENDATIONS: We discussed treatment options with the patient. At this juncture, we will continue with her medications. A script for her medications of hydrocodone 10 mg 1 p.o. q.i.d. has been written. The patient will also continue with amitriptyline. A script for gabapentin 800 mg t.i.d., meloxicam one tablet 15 mg daily and tizanidine have been written. We have discussed the need for the patient to keep aware of her foot. She may develop infection and possible lose her foot. She states that [place] [address] PAIN MANAGEMENT CONSULTATION Name: TAMARA KEYSBAOJULIA Room: [facility].#: [id number] Admission: 09/08/18 Attend Phys: Nasreen Dockery MD Discharge: Date of : 55 Report #: [id number] We would like to thank you for letting us participate in her care. We hope she continues to improve. By: [id number]. Gilmer Dockery MD /nt
== END ==
LOC: M.PC 08:11
DX: M54.16 Radiculopathy, lumbar region (principal); F32.9 Major depressive disorder, single episode, unspecified; K21.9 Gastro-esophageal reflux disease without esophagitis; I10 Essential (primary) hypertension; E11.9 Type 2 diabetes mellitus without complications; R53.1 Weakness; G43.909 Migraine, unspecified, not intractable, without status migrainosus; K44.9 Diaphragmatic hernia without obstruction or gangrene; F17.200 Nicotine dependence, unspecified, uncomplicated; L08.9 Local infection of the skin and subcutaneous tissue, unspecified; G90.50 Complex regional pain syndrome I, unspecified; F41.9 Anxiety disorder, unspecified; A92.5 Zika virus disease; Z79.899 Other long term (current) drug therapy

== ENCOUNTER → 2018-09-08 | Outpatient (CLI) | payer MEDICARE | LOC: M.WC 09-01 08:00 | DX: E11.621 Type 2 diabetes mellitus with foot ulcer (principal); L97.521 Non-pressure chronic ulcer of other part of left foot limited to breakdown of skin; S81.011D Laceration without foreign body, right knee, subsequent encounter; L84 Corns and callosities; E11.42 Type 2 diabetes mellitus with diabetic polyneuropathy; E11.36 Type 2 diabetes mellitus with diabetic cataract; E78.00 Pure hypercholesterolemia, unspecified; G43.109 Migraine with aura, not intractable, without status migrainosus; G89.4 Chronic pain syndrome; I10 Essential (primary) hypertension; J44.9 Chronic obstructive pulmonary disease, unspecified; K70.30 Alcoholic cirrhosis of liver without ascites; K21.9 Gastro-esophageal reflux disease without esophagitis; M81.0 Age-related osteoporosis without current pathological fracture; M85.88 Other specified disorders of bone density and structure, other site; F32.9 Major depressive disorder, single episode, unspecified; F41.9 Anxiety disorder, unspecified; F17.200 Nicotine dependence, unspecified, uncomplicated; X58.XXXD Exposure to other specified factors, subsequent encounter ==

== ENCOUNTER → 2018-10-20 | Outpatient (CLI) | payer MEDICARE ==
[~2018-10-20] MED LIST changes: +LIPITOR10 MG PO
--- NOTE | ~2018-10-20 | PAINCON ---
[facility] [address] [place] [address] PAIN MANAGEMENT CONSULTATION Name: TAMARA KEYS [id number] Admission: 10/20/18 Attend Phys: Nasreen Dockery MD Discharge: Date of : 55 Report #: [id number] THIS REPORT FOR: //name// CC: Meka Dockery DATE OF SERVICE: 10/20/2018 CHIEF COMPLAINT: "I fell and broke my right leg in 2 places." HISTORY: The patient is a 63-year-old female who has been followed in the pain clinic because of chronic pain. She recently went to [place] to be with her brother. She returned to [place]. States that she fell. She fractured her right leg in 2 places. States that she had an ORIF of her inner ankle and outer ankle. She is in a wheelchair now. She has gone to some convalescence at a hospital like facility. She still notes significant bruisability. Notes increased bruising on her arms as a result of being in the wheelchair. She states that she is scheduled to have home health for occupational therapy and physical therapy. Rates her pain as a 7/10. Also, continues to have low back pain. ALLERGIES: No known drug allergies. CURRENT MEDICATIONS: Omeprazole 40 mg b.i.d., amitriptyline 50 mg, metformin 500 mg, Singulair 10 mg, atenolol 25 mg 1-1/2 tablets daily, buspirone 15 mg b.i.d., gabapentin 800 mg t.i.d., Spiriva, Ventolin, Ativan at bedtime, Zanaflex 4 mg, Breo 200 mcg. PAIN CLINIC ASSESSMENT/PQRS: 1. The patient has some osteoarthritic changes in her low back. Has fallen and fractured her right tibia fibula per her report. The patient has a history of rheumatoid arthritis for which she is being treated. 2. Height 5 feet 5 inches, weight 172 pounds, BMI is 28.9. 3. Vital signs: Blood pressure 157/80, heart rate 90, respiratory rate 16, room air saturation is 98%, temperature 98.1. 4. Pain intensity 02/22. 5. Fall risk. The patient fell on 10/02/2018 and broke her right leg. 6. Blood thinner. The patient is not on a blood thinning medication. 7. Hypertension. The patient is being treated for hypertension. 8. Opioid greater than 6 weeks. The patient receives her medications from one source, the pain clinic. 9. Risk assessment tool, low for opioid use. 10. Functional assessment tool. 11. Recreational drug use. The patient denies use of recreational drugs. 12. Tobacco: The patient continues to smoke. Discussed the benefits of smoking cessation, particularly given that she [place] [address] PAIN MANAGEMENT CONSULTATION Name: TAMARA KEYS [id number] Admission: 10/20/18 Attend Phys: Nasreen Dockery MD Discharge: Date of : 55 Report #: [id number] nonunion exists. 13. Alcohol: The patient denies use of alcoholic beverages. PHYSICAL EXAMINATION: GENERAL: The patient is a well-developed, well-nourished white female. She appears her stated age. She is alert and oriented x 3. Her affect is appropriate. Speech is fluent. The patient is somewhat depressed given that she has fallen. HEENT: Normocephalic, atraumatic. Extraocular eye muscles intact. Sclerae nonicteric. Mucous membranes are moist. NECK: Without adenopathy or JVD. CHEST: Somewhat congested. The patient continues to cough numerous times, clears throat. HEART: Regular rate. EXTREMITIES: Upper extremity muscle strength is judged to be 4/5 for the major muscle groups. The patient has a number of ecchymoses and bruises of different ages on her arms with some old scars. Lower extremity, the patient is in a wheelchair, has a cast on her right leg. She notes some changes with bruises on her left leg as well as the bluish color around the toes. MUSCULOSKELETAL: The patient has some pain and discomfort with radiation down the right iliotibial band area, which is quite sore. IMPRESSION: 1. Chronic lumbar pain, status post fall and fracture of the right leg. 2. History of infection of her great toe, which continues to improve. The patient has been seen by the wound clinic. 3. History of Zika virus flare-ups not problematic today. 4. Continued use of tobacco. 5. Anxiety. 6. Diabetes type 2. 7. Generalized weakness. 8. Gastroesophageal reflux. 9. Hiatal hernia. 10. Hypertension. 11. Migraine headaches. 12. Depression. 13. Reflex sympathetic dystrophy symptoms. RECOMMENDATIONS: We discussed treatment options with the patient. She will continue with her current medications. The patient will call us if she has any concerns. She will continue to work to gain her independence. A script for her medications has been rewritten for gabapentin, 800 mg t.i.d., Meloxicam 1 tablet daily, and tizanidine. The patient will monitor her foot and leg for possibility of infection. She should contact her surgeon or the wound clinic should she [place] [address] PAIN MANAGEMENT CONSULTATION Name: TAMARA KEYS Room: [facility]#: [id number] Admission: 10/20/18 Attend Phys: Nasreen Dockery MD Discharge: Date of : 55 Report #: [id number] We would like to thank you for letting us participate in her care. We hope she continues to improve. By: [id number]. Gilmer Dockery MD /HEDY
== END ==
LOC: M.PC 10-06 08:30
DX: S82.891A Other fracture of right lower leg, initial encounter for closed fracture (principal); I10 Essential (primary) hypertension; E11.9 Type 2 diabetes mellitus without complications; K21.9 Gastro-esophageal reflux disease without esophagitis; R53.1 Weakness; G90.50 Complex regional pain syndrome I, unspecified; K44.9 Diaphragmatic hernia without obstruction or gangrene; G43.909 Migraine, unspecified, not intractable, without status migrainosus; F32.9 Major depressive disorder, single episode, unspecified; F41.9 Anxiety disorder, unspecified; F17.200 Nicotine dependence, unspecified, uncomplicated; X58.XXXA Exposure to other specified factors, initial encounter; Y93.89 Activity, other specified; Y92.89 Other specified places as the place of occurrence of the external cause; Y99.8 Other external cause status

== ENCOUNTER → 2018-11-17 | Outpatient (CLI) | payer MEDICARE ==
[~2018-11-17] MED LIST changes: +KLOR-CON 1010 MEQ PO; +LASIX 20 MG TAB20 MG PO
--- NOTE | ~2018-11-17 | PAINCON ---
[address] [address] PAIN MANAGEMENT CONSULTATION Name: TAMARA KEYS Room: [facility] MAYURI Chang#: [id number] Admission: 11/17/18 Attend Phys: Nasreen Dockery MD Discharge: Date of : 55 Report #: [id number] THIS REPORT FOR: //name// CC: Meka Dockery DATE OF SERVICE: 11/17/2018 HISTORY: The patient is a 63-year-old female who has been followed in the Pain Clinic because of chronic pain. As you recall, she fell and broke her leg. It was broken in 2 places. She is still in a boot. She ambulates in a wheelchair. Feels that things are improving. She has returned today for renewal of her medication. The patient has returned to the Pain Clinic for renewal of her medications. Overall, things are going reasonably well. She is hoping within the next week or two to be able to bear some weight on her right fractured ankle. As you recall, she fell. She had an ORIF of her ankle. She has been ambulating in a wheelchair. She is unable to drive. She feels overall that things are going reasonably well. She is hoping that she will be able to start bearing weight and start to normalize her life. She rates her pain today as a 5/10. She feels that her pain is overall 50% better with her current medical regimen. She has been undergoing physical therapy and occupational therapy. She is scheduled for a visit with her orthopedic surgeon on 11/30/2018. ALLERGIES: No known drug allergies. CURRENT MEDICATIONS: Omeprazole 40 mg, amitriptyline 50 mg, metformin 500 mg, Singulair 10 mg, atenolol 25 mg, 1-1/2 tablets daily, buspirone 15 mg b.i.d., gabapentin 800 mg t.i.d., Spiriva, Ventolin, Ativan at bedtime, Zanaflex 4 mg, Breo 200 mcg. PAIN CLINIC ASSESSMENT/PQRS: 1. The patient has fallen and did fracture her ankle in September. She does have a history of rheumatoid arthritis and is being treated for rheumatoid arthritic problems. 2. Height 5 feet 5 inches, weight 171 pounds, BMI 28.9. 3. Vital Signs: Blood pressure 158/88, heart rate 84, respiratory rate 16, room air saturation 95%, temperature 98.6 and the pain score is 5/10. 4. Fall history: The patient fell as we described above. 5. Blood thinner. The patient is not on a blood thinning medication. 6. Hypertension. The patient is being treated for hypertension. 7. Opioids greater than 6 weeks. 8. The patient receives the medication from one source, the pain clinic. 9. Risk assessment tool: Low for opioid use. 10. Recreational drug use. The patient denies use of recreational drugs. 11. Tobacco: The patient does continue to smoke. Smoking cessation was discussed[place] [address] PAIN MANAGEMENT CONSULTATION Name: TAMARA KEYS Room: [facility]#: [id number] Admission: 11/17/18 Attend Phys: Nasreen Dockery MD Discharge: Date of : 55 Report #: [id number] 12. Alcohol. The patient denies frequent use of alcoholic beverages. PHYSICAL EXAMINATION: GENERAL: The patient is a well-developed, well-nourished white female. Appears her stated age. She is alert and oriented x 3. Her affect is appropriate. Speech is fluent. HEENT: Normocephalic, atraumatic. Extraocular eye muscles intact. Sclerae nonicteric. The patient is wearing glasses. NECK: Without adenopathy or JVD. CHEST: Somewhat less congested at the previous visits. Some coughing. ABDOMEN: Nontender. Bowel sounds present. EXTREMITIES: Upper extremity muscle strength judged to be 4/5 for the major muscle groups in the upper extremity with some number of ecchymotic areas with bruises at different stages of development. Lower extremity: The patient is in wheelchair. Has her right leg in a boot. She states that it feels like it is doing reasonably well. MUSCULOSKELETAL: Has a history of some discomfort in the iliotibial band on the right side. IMPRESSION: 1. Chronic lumbar pain, status post fall and fracture of the right leg, improving. 2. History of infection of her great toe, has been seen in the wound clinic. 3. History of Zika virus flareups, none today. 4. Continued use of tobacco Discussed the benefits of smoking cessation. 5. Anxiety. 6. Diabetes type 2. 7. Generalized weakness. 8. Gastroesophageal reflux. 9. Hiatal hernia. 10. Hypertension. 11. Migraine headaches. 12. Depression. 13. Reflex sympathetic dystrophy symptomatology. RECOMMENDATIONS: We discussed treatment options with the patient. At this juncture, we will continue with her medications. Again, discussed the benefits of smoking cessation in view of her diabetes and fractured ankle. She probably find that things will heal better. Should she decrease use of tobacco. We will provide her with a renewal of her medications. A script for hydrocodone 10/325 one p.o. q.i.d. has been written, a total of 120 tablets have been dispensed. The patient will continue with amitriptyline 50 mg at bedtime a total 2 daily for 100 mg of amitriptyline, Meloxicam 15 mg 1 p.o. daily, tizanidine for muscle spasms 1-1/2 [place] [address] PAIN MANAGEMENT CONSULTATION Name: TAMARA KEYS Room: [facility]#: [id number] Admission: 11/17/18 Attend Phys: Nasreen Dockery MD Discharge: Date of : 55 Report #: [id number] We would like to thank you for letting us participate in her care. We hope she continues to improve. She will return in the near future. By: [id number]. Gilmer Dockery MD /nt
== END ==
LOC: M.PC 04:32
DX: S82.91XD Unspecified fracture of right lower leg, subsequent encounter for closed fracture with routine healing (principal); M54.5 Low back pain; F41.9 Anxiety disorder, unspecified; E11.9 Type 2 diabetes mellitus without complications; K21.9 Gastro-esophageal reflux disease without esophagitis; I10 Essential (primary) hypertension; G43.909 Migraine, unspecified, not intractable, without status migrainosus; K44.9 Diaphragmatic hernia without obstruction or gangrene; R53.1 Weakness; Z79.899 Other long term (current) drug therapy; W19.XXXD Unspecified fall, subsequent encounter

== ENCOUNTER → 2018-12-15 | Outpatient (CLI) | payer MEDICARE ==
--- NOTE | ~2018-12-15 | PAINCON ---
[address] [address] PAIN MANAGEMENT CONSULTATION Name: TAMARA KEYS Room: [facility] MAYURI Chang#: [id number] Admission: 12/15/18 Attend Phys: Nasreen Dockery MD Discharge: Date of : 55 Report #: [id number] THIS REPORT FOR: //name// CC: Meka Dockery DATE OF SERVICE: 12/15/2018 CHIEF COMPLAINT: "Here for medication renewal. I am just now starting to get out since I fractured my leg." HISTORY: The patient is a 63-year-old female who has been followed in the Pain Clinic. As you recall, she has fractured her right fibula. She has had surgery. She continues to ambulate in a wheelchair. Unable to bear significant amount of weight on this. Has had some obstacles to activities of daily living secondary to the fracture of her ankle. She states that she has one of the riding types of devices, one could put your leg on and ride. Her balance is very poor and she is not able to use that item. Has been undergoing physical therapy at home. Was working on strength. Notes some increased pain in the iliotibial band area. There is more soreness. This is a result of trying to strengthen her legs. She rates her pain as a 3/10. Pain is in the right leg and has low back pain in the back as well. Feels that her hydrocodone medications, Meloxicam, amitriptyline and tizanidine are beneficial. Has difficulty and is unable to walk, sit, stand or climbs stairs because of her injury. Overall, feels like things are healing reasonably well. She has returned today for renewal of her medications. ALLERGIES: No known drug allergies. CURRENT MEDICATIONS: Omeprazole 40 mg, amitriptyline 50 mg, metformin 500 mg, Singulair 10 mg, atenolol 25 mg 1-1/2 tablets daily, buspirone 15 mg b.i.d., gabapentin 800 mg t.i.d., Spiriva, Ventolin, Ativan at bedtime, Zanaflex 4 mg, Breo 200 mcg. PAIN CLINIC ASSESSMENT/PQRS: 1. The patient has not fallen since we saw her last. She did fall and fracture he rankle in September. 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 2. Height 5 feet 5 inches, weight 171 pounds, BMI is 28.9. 3. Vital Signs: Blood pressure 133/99, heart rate 96, respiratory rate 20, room air saturation 93%, temperature 98.4. 4. Pain intensity 10/23. 5. Fall history: The patient fell in September. 6. Blood thinner. The patient is not on a blood thinning medication. 7. Opioids. The patient gets her medication from one source, the pain clinic. 8. Risk assessment tool, [place] [address] PAIN MANAGEMENT CONSULTATION Name: TAMARA KEYS Room: [facility] MAYURI Chang#: [id number] Admission: 12/15/18 Attend Phys: Nasreen Dockery MD Discharge: Date of : 55 Report #: [id number] 9. Functional assessment tool. 10. Recreational drug use. The patient denies use of recreational drugs. 11. Tobacco: The patient continues to smoke and we have discussed cessation of smoking and its benefits. 12. Alcohol: The patient denies frequent use of alcoholic beverages. PHYSICAL EXAMINATION: GENERAL: The patient is a well-developed, well-nourished white female. Appears her stated age. She is alert and oriented x 3. Her affect is appropriate. Speech is fluent. HEENT: Normocephalic, atraumatic. Extraocular eye muscles are intact. Sclerae nonicteric. The patient is wearing her glasses. NECK: Without adenopathy or JVD. CHEST: Congestion. The patient coughs and one could hear the congestion from a distance. ABDOMEN: Nontender. Bowel sounds are present. EXTREMITIES: Upper extremity muscle strength judged to be 4/5 for the major muscle groups in the upper extremity. The patient has a number of ecchymotic areas on her and bruises of different stages and development ____. Lower extremity, the patient is in a wheelchair. Has a right foot in an extended position. She feels that things are going reasonably well at this juncture. MUSCULOSKELETAL: The patient has some discomfort in the area of her iliotibial band on the right side. IMPRESSION: 1. Chronic lumbar pain, status post fall and fracture of the right fibula with open reduction and internal fixation with a plate placed. 2. History of infection of the great toe. Seen and followed in the Wound Clinic. 3. History of Zika virus flare-ups, none today. 4. Continue use of tobacco. Discussed the benefits of smoking cessation. 5. Anxiety. 6. Diabetes type 2. 7. Generalized weakness. 8. Gastroesophageal reflux. 9. Hiatal hernia. 10. Hypertension. 11. Migraine headaches. 12. Depression. 13. Reflex sympathetic dystrophy type symptomatology. RECOMMENDATIONS: We discussed treatment options with the patient. At this juncture, we will continue with her medications. A script for medication have been rewritten. We have discussed the risks and benefits of opioid medications on a number of occasions with the patient. She is aware that long-term use of opioid medications may become less effective secondary to development of [facility] [address] [place] [address] PAIN MANAGEMENT CONSULTATION Name: TAMARA KEYS Room: [facility].#: [id number] Admission: 12/15/18 Attend Phys: Nasreen Dockery MD Discharge: Date of : 55 Report #: [id number] tolerance as well as some patients can develop dependence on the medication. Feels that her medications are working reasonably well. Would like to continue with the medication. Keeps her medications in a guarded area. We would like to thank you for letting us participate in her care. A script for her medications of hydrocodone 10/325 one p.o. q.i.d., amitriptyline 50 mg at bedtime, gabapentin 800 mg t.i.d., Meloxicam 15 mg daily, tizanidine 4 mg have been written. We would like to thank you for letting us participate in her care. We hope she continues to improve. By: [id number] 1546N. Gilmer Dockery MD /nt
== END ==
LOC: M.PC 04:46
DX: S82.491D Other fracture of shaft of right fibula, subsequent encounter for closed fracture with routine healing (principal); F17.210 Nicotine dependence, cigarettes, uncomplicated; K21.9 Gastro-esophageal reflux disease without esophagitis; M62.81 Muscle weakness (generalized); F41.9 Anxiety disorder, unspecified; K44.9 Diaphragmatic hernia without obstruction or gangrene; F32.9 Major depressive disorder, single episode, unspecified; G43.909 Migraine, unspecified, not intractable, without status migrainosus; I10 Essential (primary) hypertension; E11.9 Type 2 diabetes mellitus without complications; G90.50 Complex regional pain syndrome I, unspecified; W19.XXXD Unspecified fall, subsequent encounter; Z86.19 Personal history of other infectious and parasitic diseases; Z79.899 Other long term (current) drug therapy

== ENCOUNTER → 2019-01-06 | Outpatient (CLI) | payer MEDICARE | LOC: M.WC 09:41 | DX: E11.621 Type 2 diabetes mellitus with foot ulcer (principal); L97.412 Non-pressure chronic ulcer of right heel and midfoot with fat layer exposed; E11.42 Type 2 diabetes mellitus with diabetic polyneuropathy; E11.36 Type 2 diabetes mellitus with diabetic cataract; G89.4 Chronic pain syndrome; G43.109 Migraine with aura, not intractable, without status migrainosus; I10 Essential (primary) hypertension; J44.9 Chronic obstructive pulmonary disease, unspecified; K21.9 Gastro-esophageal reflux disease without esophagitis; K74.60 Unspecified cirrhosis of liver; M81.0 Age-related osteoporosis without current pathological fracture; M85.80 Other specified disorders of bone density and structure, unspecified site; F17.200 Nicotine dependence, unspecified, uncomplicated; F41.9 Anxiety disorder, unspecified; E78.00 Pure hypercholesterolemia, unspecified; F32.9 Major depressive disorder, single episode, unspecified; Z90.49 Acquired absence of other specified parts of digestive tract; Z90.710 Acquired absence of both cervix and uterus ==

== ENCOUNTER → 2019-01-12 | Outpatient (CLI) | payer MEDICARE | LOC: M.WC 04:41 | DX: E11.621 Type 2 diabetes mellitus with foot ulcer (principal); L97.411 Non-pressure chronic ulcer of right heel and midfoot limited to breakdown of skin; E11.36 Type 2 diabetes mellitus with diabetic cataract; E11.42 Type 2 diabetes mellitus with diabetic polyneuropathy; E78.00 Pure hypercholesterolemia, unspecified; G43.109 Migraine with aura, not intractable, without status migrainosus; G89.4 Chronic pain syndrome; I10 Essential (primary) hypertension; J44.9 Chronic obstructive pulmonary disease, unspecified; K21.9 Gastro-esophageal reflux disease without esophagitis; M85.80 Other specified disorders of bone density and structure, unspecified site; F41.9 Anxiety disorder, unspecified; F17.200 Nicotine dependence, unspecified, uncomplicated; F32.9 Major depressive disorder, single episode, unspecified ==

== ENCOUNTER → 2019-01-12 | Outpatient (CLI) | payer MEDICARE ==
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
== END ==
LOC: M.PC 04:45
DX: M54.5 Low back pain (principal); G89.29 Other chronic pain; E11.9 Type 2 diabetes mellitus without complications; K21.9 Gastro-esophageal reflux disease without esophagitis; G43.909 Migraine, unspecified, not intractable, without status migrainosus; F41.9 Anxiety disorder, unspecified; F32.9 Major depressive disorder, single episode, unspecified; Z86.19 Personal history of other infectious and parasitic diseases

== ENCOUNTER → 2019-01-19 | Outpatient (CLI) | payer MEDICARE | LOC: M.WC 05:19 | DX: E11.621 Type 2 diabetes mellitus with foot ulcer (principal); L97.411 Non-pressure chronic ulcer of right heel and midfoot limited to breakdown of skin; E11.42 Type 2 diabetes mellitus with diabetic polyneuropathy; E11.36 Type 2 diabetes mellitus with diabetic cataract; E78.00 Pure hypercholesterolemia, unspecified; G89.4 Chronic pain syndrome; G43.109 Migraine with aura, not intractable, without status migrainosus; J44.9 Chronic obstructive pulmonary disease, unspecified; I10 Essential (primary) hypertension; M81.0 Age-related osteoporosis without current pathological fracture; K21.9 Gastro-esophageal reflux disease without esophagitis; M85.80 Other specified disorders of bone density and structure, unspecified site; F41.9 Anxiety disorder, unspecified; F17.200 Nicotine dependence, unspecified, uncomplicated; F32.9 Major depressive disorder, single episode, unspecified ==

== ENCOUNTER → 2019-02-09 | Outpatient (CLI) | payer MEDICARE ==
[~2019-02-09] MED LIST changes: +PERCOCET 10-321 EAC1 PO
--- NOTE | ~2019-02-09 | PAINCON ---
[address] [address] PAIN MANAGEMENT CONSULTATION Name: TAMARA KEYS Room: [facility] MAYURI Chang#: [id number] Admission: 02/09/19 Attend Phys: Nasreen Dockery MD Discharge: Date of : 55 Report #: [id number] THIS REPORT FOR: //name// CC: Meka Dockery DATE OF SERVICE: 02/09/2019 CHIEF COMPLAINT: Here for medication renewal and torn meniscus. HISTORY: The patient is a 64-year-old female who has been followed in the pain clinic because of chronic pain. As you may recall call, she fractured her right fibula. She has been wheelchair bound for a number of months. She did note some increased pain and discomfort in the right knee. States that further assessment indicated that she has torn her meniscus. She continues to have pain and discomfort down in the right leg. She finds that her pain has been more problematic. She is unable to stand. After standing she noticed a significant increase in her pain and was reevaluated with the findings of the new tibial/fibula fracture. She rates her pain as a 4-5. She is wearing a support/brace around her knee. Continues to have some swelling in the lower extremity. States that she likes to elevated in the afternoon. She does most of her activities in the morning then tried to keep her leg elevated to decrease swelling. She has fallen since we saw her last. States that she has some difficulty wearing the AFO's. ALLERGIES: No known drug allergies. CURRENT MEDICATIONS: Mobic 15 mg daily, Zanaflex 4 mg at bedtime, amitriptyline 50 mg, gabapentin 800 mg t.i.d., Breo 200 mcg, Spiriva, Ventolin, Ativan 1 mg at bedtime, Singulair 10 mg, metformin 500 mg, omeprazole 4 mg. PAIN CLINIC ASSESSMENT/PQRS: 1. The patient has fallen since we saw her last. She has new pain in her right leg. The patient is being treated by a bladder cleaner. 2. Height 5 feet 5 inches, weight 168 pounds, BMI is 29. 3. VITAL SIGNS: Blood pressure 144/93, heart rate 85, respiratory rate 16, room air saturation 96%, temperature 98.1. 4. Pain intensity is 4-5/10. 5. Fall history: The patient did fall. States that she did hit her head. Suffers from prebruised ribs. 6. Blood thinner. The patient is not on a blood thinning medication. 7. Opioids. The patient is taking medications through the pain clinic. 8. Risk assessment tool, low for opioid use. 9. Functional assessment tool. 10. Recreational drug use. The patient denies. 11. Tobacco: The patient continues to smoke. [place] [address] PAIN MANAGEMENT CONSULTATION Name: ALLISON KEYSShakir RUBIOJULIA [id number] Admission: 02/09/19 Attend Phys: Nasreen Dockery MD Discharge: Date of : 55 Report #: [id number] of smoking cessation. 12. Alcohol: The patient rarely drinks alcoholic beverages. PHYSICAL EXAMINATION: GENERAL: The patient is a well-developed, well-nourished white female. Appears her stated age. She is alert and oriented x 3. She is in a wheelchair. Her affect is appropriate. Speech is fluent. HEAD, EYES, EARS, NOSE, AND THROAT: Normocephalic, atraumatic. Extraocular eye muscles intact. The patient is wearing glasses. NECK: Without adenopathy or JVD. CHEST: Somewhat some congestion. The patient continues to cough and clear her throat during the interview. ABDOMEN: Nontender. Bowel sounds present. EXTREMITIES: Upper extremity muscle strength judged to be 4/5 for the major muscle groups in the upper extremity. The patient has pain and discomfort in the right lower extremity. She has a brace in place. Notes some swelling below the brace. SKIN: Slightly shiny and slightly edematous. The patient is in a wheelchair. Finds it difficult to stand and support her weight. IMPRESSION: 1. Chronic lumbar pain, status post failed back syndrome. 2. History of fractured right fibula with reduction and internal fixation. 3. New finding of meniscal tear on the right leg. 4. History of Zika virus, which waxes and wanes and is stable at this juncture. 5. Continued use of tobacco. Discussed benefits of smoking cessation. 6. Anxiety. 7. Diabetes type 2. 8. Generalized weakness. 9. Gastroesophageal reflux. 10. Hiatal hernia. 11. Hypertension. 12. Migraines. 13. Depression. 14. Reflex sympathetic dystrophy type symptoms. RECOMMENDATIONS: We discussed treatment options with the patient. At this juncture, she finds her pain is quite problematic. She is having difficulty sleeping. She feels that the hydrocodone medication is not as efficacious at this point since she has this as pain. We will have the patient try Percocet, one tablet every 4-6 hours p.r.n. of 10 mg oxycodone. She will call us if she has any concerns. We have discussed the risks and benefits of opioid use. I explained to the patient that opioid medications can be problematic and some vague situations. The patient states she has taken the medication as prescribed. I would like to have the increased benefits of Percocet, so that she can become more active. States that she has been in the wheelchair for a [facility] [address] [place] [address] PAIN MANAGEMENT CONSULTATION Name: TAMARA KEYS Room: [facility] Charlene#: [id number] Admission: 02/09/19 Attend Phys: Nasreen Dockery MD Discharge: Date of : 55 Report #: [id number] number of months and is losing muscle strength as well as gaining weight. A script for her medications of amitriptyline 50 mg 1 p.o. b.i.d., gabapentin 800 mg 1 p.o. t.i.d., oxycodone 10/325 one p.o. every 4-6 hours p.r.n., Meloxicam 15 mg daily, tizanidine 4 mg 1-1/2 tablets p.r.n. The patient will return to the pain clinic. She will call us if she has any concerns. We would like to thank you for letting us to participate in her care. We hope she continues to improve. By: [id number] 1733N. Gilmer Dockery MD /PMT
== END ==
LOC: M.PC 04:57
DX: Z76.0 Encounter for issue of repeat prescription (principal); M54.5 Low back pain; G89.29 Other chronic pain; E11.9 Type 2 diabetes mellitus without complications; K21.9 Gastro-esophageal reflux disease without esophagitis; I10 Essential (primary) hypertension; G43.909 Migraine, unspecified, not intractable, without status migrainosus; F32.9 Major depressive disorder, single episode, unspecified; F41.9 Anxiety disorder, unspecified; Z79.899 Other long term (current) drug therapy; Z79.891 Long term (current) use of opiate analgesic

== ENCOUNTER → 2019-03-02 | Outpatient (CLI) | payer MEDICARE | LOC: M.WC 04:46 | DX: E11.622 Type 2 diabetes mellitus with other skin ulcer (principal); I87.313 Chronic venous hypertension (idiopathic) with ulcer of bilateral lower extremity; L97.822 Non-pressure chronic ulcer of other part of left lower leg with fat layer exposed; L97.812 Non-pressure chronic ulcer of other part of right lower leg with fat layer exposed; E11.42 Type 2 diabetes mellitus with diabetic polyneuropathy; E11.36 Type 2 diabetes mellitus with diabetic cataract; I89.0 Lymphedema, not elsewhere classified; M85.80 Other specified disorders of bone density and structure, unspecified site; K21.9 Gastro-esophageal reflux disease without esophagitis; E55.9 Vitamin D deficiency, unspecified; M81.0 Age-related osteoporosis without current pathological fracture; G89.4 Chronic pain syndrome; E78.00 Pure hypercholesterolemia, unspecified; J44.9 Chronic obstructive pulmonary disease, unspecified; F32.9 Major depressive disorder, single episode, unspecified; F41.9 Anxiety disorder, unspecified; F17.200 Nicotine dependence, unspecified, uncomplicated; Z91.81 History of falling ==

== ENCOUNTER → 2019-03-06 | Outpatient (CLI) | payer MEDICARE | LOC: M.WC 12:53 | DX: I87.313 Chronic venous hypertension (idiopathic) with ulcer of bilateral lower extremity (principal); L97.821 Non-pressure chronic ulcer of other part of left lower leg limited to breakdown of skin; L97.811 Non-pressure chronic ulcer of other part of right lower leg limited to breakdown of skin; I89.0 Lymphedema, not elsewhere classified; I10 Essential (primary) hypertension; E78.00 Pure hypercholesterolemia, unspecified; E55.9 Vitamin D deficiency, unspecified; G89.4 Chronic pain syndrome; G62.9 Polyneuropathy, unspecified; M85.80 Other specified disorders of bone density and structure, unspecified site; K21.9 Gastro-esophageal reflux disease without esophagitis; J44.9 Chronic obstructive pulmonary disease, unspecified; F32.9 Major depressive disorder, single episode, unspecified; F41.9 Anxiety disorder, unspecified; F17.200 Nicotine dependence, unspecified, uncomplicated ==

== ENCOUNTER → 2019-03-09 | Outpatient (CLI) | payer MEDICARE ==
--- NOTE | ~2019-03-09 | PAINCON ---
[address] [address] PAIN MANAGEMENT CONSULTATION Name: TAMARA KEYS Room: [facility] MAYURI Chang#: [id number] Admission: 03/09/19 Attend Phys: Nasreen Dockery MD Discharge: Date of : 55 Report #: [id number] THIS REPORT FOR: //name// CC: Meka Dockery DATE OF SERVICE: 03/09/2019 CHIEF COMPLAINT: The back pain still kind a bad and I have had some cellulitis in the legs. Here for medication renewal. HISTORY: The patient is a 64-year-old female who has been followed in the pain clinic because of chronic pain. She has fractured her right fibula. She has been wheelchair bound for a number of months. She has developed some cellulitis in her right leg in a couple of places as well as her left leg. She has been going to the wound care for treatment. She still tries to stay as active as possible. She continues to be active in [employer]. She was on an antibiotic regimen of clindamycin for 7 days. This has been stopped. She has been going to physical therapy to try and increase her muscle strength. She is unable to do much. She did fall down some steps at home. Had her neighbor come by and gave her helping hand. She is trying to slide her clothing down stairs in a basket and has a pulled them up and down the stairs. Notes that she has been trying to go to the mailbox. Tries to go up and down stairs. Continues to have easy bruising on her hands and arms. She notes walking, sitting, standing, and bending are problematic. She was on oxycodone 10 mg q.i.d. as needed. She found that this medication was a bit more sedating than she needed. She would sit and find that she would be less active and would become pretty somnolent. She would like to revert to the hydrocodone 10/325, which were more helpful in the past. She has returned today for renewal of her medications. ALLERGIES: No known drug allergies. CURRENT MEDICATIONS: Mobic 15 mg, Zanaflex 4 mg at bedtime, amitriptyline 50 mg, gabapentin 800 mg t.i.d., Breo 200 mcg, Spiriva, Ventolin, Ativan 1 mg at bedtime, Singulair 10 mg, metformin 500 mg, omeprazole 40 mg. PAIN CLINIC ASSESSMENT/PQRS: 1. The patient has fallen since we saw her last. She fell down some stairs. She has continued right leg problem. She has noticed some problem. She is not being treated by dentist attendant. 2. Height 5 feet 5 inches, weight 175 pounds, BMI is 29. 3. Vital signs: Blood pressure 137/74, heart rate 79, respiratory rate 16, room air saturation 95%, temperature 98.6. 3. Pain intensity 4/10. 4. Fall history: The patient did fall down the stairs. Since we saw her last. [address] [place] [address] PAIN MANAGEMENT CONSULTATION Name: TAMARA KEYS RAMIROJULIA Room: [facility]#: [id number] Admission: 03/09/19 Attend Phys: Nasreen Dockery MD Discharge: Date of : 55 Report #: [id number] 5. Blood thinner. The patient is not on a blood thinning medication. 6. Opioids. The patient is being treated from the Pain Clinic with opioid medication. 7. Risk assessment tool, low for opioid use. 8. Functional assessment tool. 9. Recreational drug use. The patient denies. 10. Tobacco: The patient continues to smoke. Again we discussed benefits of smoking cessation. 11. Alcohol: The patient rarely uses alcoholic beverages. PHYSICAL EXAMINATION: GENERAL: The patient is a well-developed, well-nourished white female. Appears her stated age. She is alert and oriented x 3. She is in a wheelchair. Her affect is appropriate. Speech is fluent. Mood is bright. HEENT: Normocephalic, atraumatic. Extraocular eye muscles intact. Sclerae nonicteric. Mucous membranes moist. The patient is wearing glasses. NECK: Without adenopathy or JVD. CHEST: Somewhat congested can hear the patient coughs during the interview and clear throat. ABDOMEN: Nontender. Bowel sounds present. EXTREMITIES: Upper extremity muscle strength judged to be 4/5 for the major muscle groups in the upper extremity. The patient has a number of bruises of different durations on her forearms. The patient has some occlusive dressings on some areas of her right leg, which are most likely cellulitis. SKIN: Slightly edematous and shiny in the upper arms. The patient needs some support while standing. IMPRESSION: 1. Chronic lumbar pain, status post failed back syndrome. 2. History of fractured right fibula with open reduction and internal fixation. 3. Finding of a new meniscal tear in the right leg. 4. History of Zika virus, stable at this juncture. 6. Tobacco: The patient continues to smoke. 7. Anxiety. 8. Diabetes type 2. 9. Generalized weakness. 10. Gastroesophageal reflux. 11. Hiatal hernia. 12. Hypertension. 13. Migraines. 14. Depression. 15. Reflex sympathetic dystrophy type symptoms. RECOMMENDATIONS: We discussed treatment options with the patient. At this juncture, we will continue with her medications. We will discontinue OxyContin and revert to hydrocodone. She finds that the medication is more helpful. [facility] [address] [place] [address] PAIN MANAGEMENT CONSULTATION Name: TAMARA KEYS Room: [facility] Charlene#: [id number] Admission: 03/09/19 Attend Phys: Nasreen Dockery MD Discharge: Date of : 55 Report #: [id number] was felt that she got a little bit too sleepy with use of the oxycodone. She still tries to stay active. Continues to go to her [employer] class. She is trying to increase her strength back on physical therapy. She is being followed by the wound clinic for cellulitis. She has been doing reasonably well, mentally. Overall, she finds her medications are helpful and would like to have them renewed. She is aware that opioid medications can become less effective as time progresses because of tolerance. She keeps her medications in a guarded area. We have rewritten the patient's medications: Hydrocodone 10/325 one p.o. q.i.d. is available. The patient will continue with amitriptyline 60 tablets of 50 mg 1 p.o. b.i.d. The patient will also continue with gabapentin 800 mg t.i.d., total of 90 have been written. The patient will continue with meloxicam and note any GI complaints. She also will continue with Zanaflex 4 mg 1 p.o. p.r.n. for muscle spasms. We would like to thank you for letting us participate in her care. We hope she continues to improve. By: [id number]. Gilmer Dockery MD /HEDY
== END ==
LOC: M.PC 05:06
DX: S83.206A Unspecified tear of unspecified meniscus, current injury, right knee, initial encounter (principal); M54.9 Dorsalgia, unspecified; K21.9 Gastro-esophageal reflux disease without esophagitis; K44.9 Diaphragmatic hernia without obstruction or gangrene; I10 Essential (primary) hypertension; F32.9 Major depressive disorder, single episode, unspecified; E11.9 Type 2 diabetes mellitus without complications; F41.9 Anxiety disorder, unspecified; Z72.0 Tobacco use; X58.XXXA Exposure to other specified factors, initial encounter; Y93.89 Activity, other specified; Y92.89 Other specified places as the place of occurrence of the external cause; Y99.8 Other external cause status

== ENCOUNTER → 2019-03-09 | Outpatient (CLI) | payer MEDICARE | LOC: M.WC 05:04 | DX: E11.622 Type 2 diabetes mellitus with other skin ulcer (principal); I87.313 Chronic venous hypertension (idiopathic) with ulcer of bilateral lower extremity; L97.812 Non-pressure chronic ulcer of other part of right lower leg with fat layer exposed; L97.822 Non-pressure chronic ulcer of other part of left lower leg with fat layer exposed; I89.0 Lymphedema, not elsewhere classified; E11.42 Type 2 diabetes mellitus with diabetic polyneuropathy; E11.36 Type 2 diabetes mellitus with diabetic cataract; E78.00 Pure hypercholesterolemia, unspecified; G89.4 Chronic pain syndrome; G43.109 Migraine with aura, not intractable, without status migrainosus; J44.9 Chronic obstructive pulmonary disease, unspecified; K70.30 Alcoholic cirrhosis of liver without ascites; K21.9 Gastro-esophageal reflux disease without esophagitis; M81.0 Age-related osteoporosis without current pathological fracture; M85.80 Other specified disorders of bone density and structure, unspecified site; F17.200 Nicotine dependence, unspecified, uncomplicated; F32.9 Major depressive disorder, single episode, unspecified; F41.9 Anxiety disorder, unspecified ==

== ENCOUNTER → 2019-03-16 | Outpatient (CLI) | payer MEDICARE | LOC: M.WC 05:07 | DX: T81.89XA Other complications of procedures, not elsewhere classified, initial encounter (principal); E11.42 Type 2 diabetes mellitus with diabetic polyneuropathy; E11.36 Type 2 diabetes mellitus with diabetic cataract; I89.0 Lymphedema, not elsewhere classified; I10 Essential (primary) hypertension; I87.2 Venous insufficiency (chronic) (peripheral); K21.9 Gastro-esophageal reflux disease without esophagitis; E78.00 Pure hypercholesterolemia, unspecified; M85.80 Other specified disorders of bone density and structure, unspecified site; E55.9 Vitamin D deficiency, unspecified; G89.4 Chronic pain syndrome; M81.0 Age-related osteoporosis without current pathological fracture; J44.9 Chronic obstructive pulmonary disease, unspecified; F41.9 Anxiety disorder, unspecified; Z91.81 History of falling; F32.9 Major depressive disorder, single episode, unspecified; F17.200 Nicotine dependence, unspecified, uncomplicated; Y92.89 Other specified places as the place of occurrence of the external cause; Y83.8 Other surgical procedures as the cause of abnormal reaction of the patient, or of later complication, without mention of misadventure at the time of the procedure ==

== ENCOUNTER → 2019-03-27 | Outpatient (CLI) | payer MEDICARE ==
[~2019-03-27] MED LIST changes: +OXYCONTIN10 M1 PO
== END ==
LOC: M.WC 10:09
DX: T81.89XA Other complications of procedures, not elsewhere classified, initial encounter (principal); E11.36 Type 2 diabetes mellitus with diabetic cataract; E11.42 Type 2 diabetes mellitus with diabetic polyneuropathy; E78.00 Pure hypercholesterolemia, unspecified; G43.109 Migraine with aura, not intractable, without status migrainosus; G89.4 Chronic pain syndrome; I89.0 Lymphedema, not elsewhere classified; I10 Essential (primary) hypertension; J44.9 Chronic obstructive pulmonary disease, unspecified; K21.9 Gastro-esophageal reflux disease without esophagitis; K70.30 Alcoholic cirrhosis of liver without ascites; M81.0 Age-related osteoporosis without current pathological fracture; M85.80 Other specified disorders of bone density and structure, unspecified site; F41.9 Anxiety disorder, unspecified; F32.9 Major depressive disorder, single episode, unspecified; F17.200 Nicotine dependence, unspecified, uncomplicated; Y92.89 Other specified places as the place of occurrence of the external cause; Y83.8 Other surgical procedures as the cause of abnormal reaction of the patient, or of later complication, without mention of misadventure at the time of the procedure

== ENCOUNTER → 2019-04-06 | Outpatient (CLI) | payer MEDICARE | LOC: M.PC 02:09 | DX: M25.551 Pain in right hip (principal) ==

== ENCOUNTER → 2019-04-27 | Outpatient (CLI) | payer MEDICARE ==
[~2019-04-27] MED LIST changes: +COREG6.25 MG PO
--- NOTE | ~2019-04-27 | PAINCON ---
[address] [address] PAIN MANAGEMENT CONSULTATION Name: TAMARA KEYS Room: [facility] MAYURI Chang#: [id number] Admission: 04/27/19 Attend Phys: Nasreen Dockery MD Discharge: Date of : 55 Report #: [id number] THIS REPORT FOR: //name// CC: Meka Dockery DATE OF SERVICE: 04/27/2019 CHIEF COMPLAINT: "I am going to have to have my right hip replace." HISTORY: The patient is a 64-year-old female who has been followed in the pain clinic because of chronic pain involving her right hip. The patient fell and broke her hip. She has undergone hip screw placement. She has seen her orthopedic doctor. She states that he tells her that the pins are moving and that the bone around them is crumbling. She is scheduled to have hip replacement in the near future. She has stopped taking the nonsteroidal anti-inflammatory medication. She has noted some decreased bruising on her arm. She is not sure whether or not this nonsteroidal that was the cause of it. She rates her pain as a 3/10. She is in a wheelchair. She notes continued weakness in her legs and some swelling in her legs bilaterally. She feels that her medications of OxyContin have been helpful. She also feels the hydrocodone medication is beneficial. She continues to use gabapentin. She is somewhat concerned about the surgery. She is hopeful that she will have a fast and speedy recovery. She is scheduled to undergo surgery in the next few weeks. This will take place on 05/04/2019 at [facility]. ALLERGIES: No known drug allergies. CURRENT MEDICATIONS: Mobic, the patient has stopped taking this medications, Zanaflex 4 mg at bedtime, amitriptyline 50 mg, gabapentin 800 mg t.i.d., Breo 200 mcg, Spiriva a, Ventolin, Ativan 1 mg at bedtime, Singulair 10 mg, metformin 500 mg, omeprazole 40 mg. PAIN CLINIC ASSESSMENT AND PQRS: 1. The patient has pain and discomfort in her right hip, which she has fallen and fractured. The patient has also had a fracture of the ankle, which is continuing to heal. She is not being seen by piping design specialist. 2. Height 5 feet 5 inches, weight 175 pounds, BMI is 29. 3. Vital Signs: Blood pressure 115/80, heart rate 76, respiratory rate 16, room air saturation 98%. Temperature 98.2.5. 4. Pain intensity 7/10. 5. Fall history: The patient has fallen and fractured her hip with a hip pinning and scheduled for hip replacement in the near future. 6. Blood thinner. The patient is not on a blood thinning medication. 7. Opioids. The patient continues to use her opioid medications as prescribed. 8. Risk assessment tool, [place] [address] PAIN MANAGEMENT CONSULTATION Name: TAMARA KEYS [id number] Admission: 04/27/19 Attend Phys: Nasreen Dockery MD Discharge: Date of : 55 Report #: [id number] 9. Functional assessment tool. 10. Recreational drug use. The patient denies. 11. Tobacco: The patient continues to smoke. 12. Alcohol: The patient rarely drinks alcoholic beverages. PHYSICAL EXAMINATION: GENERAL: The patient is a well-developed, well-nourished white female. Appears her stated age. She is alert and oriented x 3. She is in a wheelchair. She is wearing glasses. Her speech is fluent. HEENT: Normocephalic, atraumatic. Extraocular eye muscles intact. Sclerae nonicteric. NECK: Without adenopathy or JVD. CHEST: Some congestion. The patient clears her throat. ABDOMEN: Nontender. Bowel sounds present. EXTREMITIES: Upper extremity muscle strength judged to be 4/5 for the major muscle groups in the upper extremity. The patient has pain in her right hip. This has been ____. She is noticing somewhat decreased bruising of her forearms and she stopped taking the Mobic. IMPRESSION: 1. Recent fall with fracture of the hip with hip pinning. 2. Chronic pain, lumbar pain, failed back syndrome. 3. History of fracture of the right fibula with open reduction and internal fixation. 4. Finding of a new meniscal tear in the right leg. 5. History of Zika virus, stable at this juncture. 6. Continued tobacco use. 7. Anxiety. 8. Diabetes type 2. 9. Generalized weakness. 10. Esophageal reflux. 11. Hiatal hernia. 12. Hypertension. 13. Migraines. 14. Depression. 15. Reflex sympathetic dystrophy type symptomatology. RECOMMENDATIONS: We discussed treatment options with the patient. At this juncture, we will continue with her medications. She will undergo surgery in the near future. She undoubtedly will require an increase in her pain medications. Hopefully, she will have a quick recovery. She is aware of the possible problems with opioids, which could be addiction as well as less effectiveness secondary to tolerance. She is not exhibiting any addiction behavior. She will undoubtedly need additional opioid medications. She will be provided medications post-surgery by her surgeon. She will call us if she has any problems with [place] medications [place] [address] PAIN MANAGEMENT CONSULTATION Name: TAMARA KEYS Room: [facility].#: [id number] Admission: 04/27/19 Attend Phys: Nasreen Dockery MD Discharge: Date of : 55 Report #: [id number] We would like to thank you for letting us participate in her care. We hope she continues to improve. By: [id number]. Gilmer Dockery MD /nt
== END ==
LOC: M.PC 05:22
DX: S72.091D Other fracture of head and neck of right femur, subsequent encounter for closed fracture with routine healing (principal); G89.29 Other chronic pain; E11.9 Type 2 diabetes mellitus without complications; K21.9 Gastro-esophageal reflux disease without esophagitis; I10 Essential (primary) hypertension; G43.909 Migraine, unspecified, not intractable, without status migrainosus; F41.9 Anxiety disorder, unspecified; F32.9 Major depressive disorder, single episode, unspecified; X58.XXXD Exposure to other specified factors, subsequent encounter

== ENCOUNTER → 2019-05-25 | Outpatient (CLI) | payer MEDICARE ==
[~2019-05-25] MED LIST changes: +ELIQUIS2.5 MG PO
--- NOTE | 2019-06-07 09:09 | PAINCON ---
[address] [address] PAIN MANAGEMENT CONSULTATION Name: TAMARA KEYS Room: [facility] MAYURI Chang#: [id number] Admission: 05/25/19 Attend Phys: Nasreen Dockery MD Discharge: Date of : 55 Report #: [id number] THIS REPORT FOR: //name// CC: Meka Dockery DATE OF SERVICE: 05/25/2019 CHIEF COMPLAINT: "I have had my hip replaced and it feels better." HISTORY: The patient is a 64-year-old female who has been seen and followed in the pain clinic. As you recall, she has chronic pain. She has had some pain in her low back area. She has had pain in her right hip. As you may recall, she fell and broke her hip on 02/2019. She developed some cellulitis. She feels that her leg has improved. She is in a wheelchair. She has had a hip replaced about 3 weeks ago. She has been in physical therapy. Rates her pain as 5/10 at this point. She has returned today with the hopes of renewing her medications. Notes that her pain is worse when she is walking, sitting, standing, climbing stairs, lifting and bending. Pain improves with use of her medication as well as with rest. She is taking Eliquis to combat the possibility of a blood clot in the lower extremities. Overall, she feels that things are going reasonably well. She feels the OxyContin medications, continue to be helpful. Feels that her gabapentin and hydrocodone medications are helpful. She would like to have the hydrocodone medication renewed. ALLERGIES: No known drug allergies. CURRENT MEDICATIONS: 1. Mobic. The patient has stopped taking this medication. She is now on Eliquis 2.5 mg. 2. Zanaflex. 3. Amitriptyline 50 mg. 4. Gabapentin 800 mg t.i.d. 5. Breo 200 mcg. 6. Spiriva. 7. Ventolin. 8. Ativan 1 mg at bedtime. 9. Singulair 10 mg. 10. Metformin 500 mg. 11. Omeprazole 40 mg. PAIN CLINIC ASSESSMENT AND PQRS: 1. The patient has pain and discomfort in her right hip. It is improved since her surgery. She states that it is healing reasonably well. 2. Osteoarthritic changes in her ankle, status post fracture after a fall. 3. The patient is not being followed by mannequin sander [place] [address] PAIN MANAGEMENT CONSULTATION Name: TAMARA KEYS Room: [facility]#: [id number] Admission: 05/25/19 Attend Phys: Nasreen Dockery MD Discharge: Date of : 55 Report #: [id number] 4. Height 5 feet 5 inches, weight 167 pounds, BMI is 27.5. 5. Vital Signs: Blood pressure 132/71, heart rate 81, respiratory rate 16, room air saturation is 98%, temperature is 98.1. 6. Pain intensity 5/10. 7. Fall history: The patient has not fallen since we saw her last. 8. Blood thinner. The patient is on a blood thinning medication Eliquis, status post recent hip replacement. 9. Opioids. The patient continues to find her medications helpful with hydrocodone. 10. Risk assessment tool, low for opioid use. 11. Functional assessment tool. 12. Recreational drug use. The patient denies. 13. Tobacco: The patient continues to smoke. We again have discussed the benefits of smoking cessation with healing. 14. Alcohol: The patient rarely drinks alcoholic beverages. PHYSICAL EXAMINATION: GENERAL: The patient is well-developed, well-nourished white female. Appears her stated age. She is alert and oriented. She is in a wheelchair. She is wearing glasses. Speech is fluent. Appears reasonably happy now that she has had her hip surgery. HEENT: Normocephalic, atraumatic. Extraocular eye muscles intact. Sclerae nonicteric. NECK: Without adenopathy or JVD. HEART: With some congestion. The patient continues to cough and clear her throat. We saw him a little bit somewhat congested. ABDOMEN: Nontender. Bowel sounds present. EXTREMITIES: Upper extremity muscle strength judged to be 4/5 for the major muscle groups in the upper extremity. The patient has pain and discomfort in her right hip. Continues to keep her right leg extended. Feels overall that things have improved and is able to move her right leg and sit without constant pain. IMPRESSION: 1. Recent fall and fracture of the right hip, now status post hip arthroplasty. 2. Chronic pain, lumbar back failed/failed back syndrome. 3. History of fracture of the right fibula with open reduction and internal fixation. 4. Finding of a new meniscal tear in the right leg. 5. History of Zika virus -- stable at this juncture. 6. Continued tobacco use. 7. Anxiety. 8. Diabetes type 2. 9. Generalized weakness. [address] [address] PAIN MANAGEMENT CONSULTATION Name: TAMARA KEYS Room: [facility]#: [id number] Admission: 05/25/19 Attend Phys: Nasreen Dockery MD Discharge: Date of : 55 Report #: [id number] 10. Esophageal reflux. 11. Hiatal hernia. 12. Hypertension. 13. Migraines. 14. Depression. 15. Reflex sympathetic dystrophy type. RECOMMENDATIONS: We discussed treatment options with the patient. At this juncture, we will continue with her medications. She will not take Mobic. She is on a blood thinning medication. She will consider that after discontinuation of the Eliquis. A script for her medications of hydrocodone 10/325 one p.o. 4-6 hours has been renewed. The patient will also continue with amitriptyline. The patient will continue with amitriptyline 50 mg 1 p.o. b.i.d. She will continue with gabapentin 800 mg t.i.d. She will use tizanidine 4 mg p.o. at bedtime p.r.n. for muscle spasms. We will continue to have the patient use complex medical management using opioids to help control her pain at this juncture. We would like to thank you for letting us participate in her care. We hope she continues to improve. <ELECTRONICALLY SIGNED> By: Nasreen Dockery MD 06/07/19 [id number]. Gilmer Dockery MD /nt
== END ==
LOC: M.PC 05:59
DX: Z76.0 Encounter for issue of repeat prescription (principal); Z47.1 Aftercare following joint replacement surgery; G89.29 Other chronic pain; M54.5 Low back pain; M25.551 Pain in right hip; E11.9 Type 2 diabetes mellitus without complications; K21.9 Gastro-esophageal reflux disease without esophagitis; I10 Essential (primary) hypertension; G43.909 Migraine, unspecified, not intractable, without status migrainosus; F41.9 Anxiety disorder, unspecified; F32.9 Major depressive disorder, single episode, unspecified; Z79.899 Other long term (current) drug therapy; Z79.891 Long term (current) use of opiate analgesic; Z96.641 Presence of right artificial hip joint

== ENCOUNTER → 2019-06-22 | Outpatient (CLI) | payer MEDICARE ==
--- NOTE | 2019-06-27 10:01 | PAINCON ---
[address] [address] PAIN MANAGEMENT CONSULTATION Name: TAMARA KEYS Room: [facility] MAYURI Charlene#: [id number] Admission: 06/22/19 Attend Phys: Nasreen Dockery MD Discharge: Date of : 55 Report #: [id number] THIS REPORT FOR: //name// CC: Meka Dockery DATE OF SERVICE: 06/22/2019 CHIEF COMPLAINT: Here for renewal of the medications. HISTORY OF PRESENT ILLNESS: The patient is a 64-year-old female who has been followed in the pain clinic. As you may recall, she has pain and discomfort in the low back area. She has pain in her right hip. She has had right hip surgery. She fell and broke this in 02/2019. She did develop some cellulitis. Overall, things appeared to be going reasonably well. She is still ambulating with use of wheelchair. She has been undergoing physical therapy. She recently was hospitalized 4 days because of her hip problem. She did develop some cellulitis. She feels that her right ankle is doing reasonably well. As you may recall, she did injure her right ankle some time ago. She has returned today for renewal of her medications. She has been using some steroid cream on her right leg. She has recently finished her antibiotics. She does have some pain in her left shoulder. The weather has changed. Noted some increased pain and discomfort with walking, sitting, standing, climbing stairs, lifting and bending. She is trying to cut down on smoking. ALLERGIES: No known drug allergies. CURRENT MEDICATIONS: Harshil stopped taking this when she was on Eliquis, Zanaflex, amitriptyline 50 mg, gabapentin 800 mg, Breo 200 mcg, Spiriva, Ventolin, Ativan 1 mg at bedtime, Singulair 10 mg, metformin 500 mg, omeprazole 40 mg. PAIN CLINIC ASSESSMENT AND PQRS: 1. The patient does have some pain and discomfort in her right hip. She notes that it continues to improve. 2. Osteoarthritic changes in her ankle, status post fall and feels that it is improving. 3. The patient is not being followed by early childhood assistant. 4. Height 5 feet 5 inches, weight is 167 pounds, BMI is 27.5. 5. Vital signs: Blood pressure 132/58, heart rate 80, respiratory rate 16, temperature 98.2. 6. Pain score 3/10. 7. Fall history: The patient has not fallen since we saw her last. 8. Blood thinner. The patient has stopped Eliquis. She has [place] [address] PAIN MANAGEMENT CONSULTATION Name: TAMARA KEYS [id number] Admission: 06/22/19 Attend Phys: Nasreen Dockery MD Discharge: Date of : 55 Report #: [id number] 9. Opioids. The patient continues to use medications to help control her pain. She gets some from one source, the pain clinic. 10. Risk assessment tool, low for opioid use. 11. Functional assessment tool reviewed. 12. Recreational drug use: The patient denies. 13. Tobacco: The patient continues to try to decrease use of tobacco. 14. Alcohol: The patient rarely drinks alcoholic beverages. PHYSICAL EXAMINATION: GENERAL: The patient is a well-developed, well-nourished white female. Appears her stated age. She is alert and oriented x 3. She is in a wheelchair. She is wearing glasses. Speech is fluent. HEENT: Normocephalic, atraumatic. Extraocular eye muscles intact. Sclerae nonicteric. The patient has glasses on. NECK: Without adenopathy or JVD. HEART: Regular rate. LUNGS: The patient has some congestion. She continues to cough and clear her throat. ABDOMEN: Nontender. EXTREMITIES: Upper extremity muscle strength judged to be 4+/5 for the major muscle groups in the upper extremity. The patient has pain and discomfort in her right hip, which is well healing. She has some swelling and cellulitis, which has improved. IMPRESSION: 1. Recent fall and fracture of the right hip now status post hip osteoplasty. 2. Chronic pain, lumbar back/failed back syndrome. 3. History of fracture of the right fibula with reduction and internal fixation. 4. Findings of new meniscal tear in the right leg. 5. History of Zika virus, stable. 6. Continued tobacco use. 7. Anxiety. 8. Diabetes type 2. 9. Generalized weakness. 10. Gastroesophageal reflux. 11. Hiatal hernia. 12. Hypertension. 13. Migraines. 14. Depression. 15. Reflex sympathetic dystrophy type symptomatology. RECOMMENDATIONS: We discussed treatment options with the patient. Overall, things are going reasonably well. She has finished antibiotic for cellulitis in the leg. She feels that the use of her current medication of tizanidine, hydrocodone, amitriptyline, and meloxicam are helpful. She rates her pain as a [facility] [address] [place] [address] PAIN MANAGEMENT CONSULTATION Name: TAMARA KEYS Room: [facility]#: [id number] Admission: 06/22/19 Attend Phys: Nasreen Dockery MD Discharge: Date of : 55 Report #: [id number] 3/10. We will continue with her current medications. She will call us if she has any concerns. She is aware that opioid medications can become less effective over time secondary to development of tolerance. She is feeling more energetic now that she is beginning to mend. We would like to thank you for letting us participate in her care. We hope she continues to improve. <ELECTRONICALLY SIGNED> By: Nasreen Dockery MD 06/27/19 1001 [id number] 0005Shakir. Gilmer Dockery MD /nt
== END ==
LOC: M.PC 05:28
DX: Z76.0 Encounter for issue of repeat prescription (principal); G89.29 Other chronic pain; Z79.891 Long term (current) use of opiate analgesic; Z79.899 Other long term (current) drug therapy; S72.091D Other fracture of head and neck of right femur, subsequent encounter for closed fracture with routine healing; W19.XXXD Unspecified fall, subsequent encounter

== ENCOUNTER → 2019-07-20 | Outpatient (CLI) | payer MEDICARE ==
[~2019-07-20] MED LIST changes: +BREO ELLIPTA 11 EACH INH
--- NOTE | ~2019-07-20 | PAINCON ---
[address] [address] PAIN MANAGEMENT CONSULTATION Name: TAMARA KEYS Room: [facility] MAYURI Chang#: [id number] Admission: 07/20/19 Attend Phys: Nasreen Dockery MD Discharge: Date of : 55 Report #: [id number] THIS REPORT FOR: //name// CC: Meka Dockery DATE OF SERVICE: 07/20/2019 CHIEF COMPLAINT: Here for medication renewal. I have lost about 7 pounds. HISTORY: The patient is a 64-year-old female who has been followed in the pain clinic. As you recall, she has a somewhat bumpy few months. She fell and broke her right hip. She has undergone surgery because of the broken hip. She has been treated for cellulitis and feels that, that has improved. Continues to ambulate with her wheelchair. She has been receiving physical therapy at home. They come twice a week. She has some increased pain and discomfort in the left shoulder and rotator cuff area. She was placing some decorations. She states that she did fall at the door when she had both hands up, but landed on the carpet without an incident. Has some concerns about her health and that her hemoglobin was 6.6. She has been having some testing done and trying to figure out why her hemoglobin was low. She is dreading having to go through another colonoscopy. The prep was quite problematic and difficult. She has returned today for renewal of her medications. ALLERGIES: No known drug allergies. CURRENT MEDICATIONS: Mobic was stopped and she is no longer on the Eliquis. Zanaflex, amitriptyline, gabapentin 800 mg, Breo 200 mcg, Spiriva, Ventolin, Ativan 1 mg at bedtime, Singulair 10 mg, metformin 500 mg, omeprazole 40 mg. PAIN CLINIC ASSESSMENT AND PQRS: 1. The patient has some pain and discomfort, which remain in her right hip. Continues to improve. 2. Osteoarthritic changes in her ankle, status post fall. This is improving. 3. The patient is not being followed by the clerical clerk. 4. Height 5 feet 5 inches, weight 160 pounds, BMI is 26.8. 5. Vital signs: Blood pressure 140/95, heart rate 80, respiratory rate 16, room air saturation 98%, temperature 97.8. 6. Pain intensity, 10. 7. Fall history, the patient fell on a carpet while she was trying to place some decorations without need for medical attention. 8. Blood thinner, the patient has stopped her Eliquis. She is using meloxicam. 9. Opioids, the patient continues with her opioid medications as prescribed. Gets them from one source, the pain clinic. 10. Risk assessment tool, low for opioid use. 11. Functional assessment tool, [place] [address] PAIN MANAGEMENT CONSULTATION Name: TAMARA KEYS Room: [facility] MAYURI Chang#: [id number] Admission: 07/20/19 Attend Phys: Nasreen Dockery MD Discharge: Date of : 55 Report #: [id number] 12. Recreational drug use, the patient denies. 13. Tobacco, the patient continues to smoke tobacco. She is trying to decrease the use. 14. Alcohol, the patient rarely drinks. PHYSICAL EXAMINATION: GENERAL: The patient is a well-developed, well-nourished, white female. Appears her stated age. She is alert and oriented x 3. She is in a wheelchair. She is wearing glasses. Speech is fluent. HEENT: Normocephalic, atraumatic. Extraocular eye muscles intact. Sclerae nonicteric. Mucous membranes are moist. NECK: Without adenopathy or JVD. HEART: Regular rate. LUNGS: The patient does continue to cough with some congestion and clears her throat. ABDOMEN: Nontender. EXTREMITIES: Upper extremity muscle strength judged to be 4+/5 for the major muscle groups. The patient has some increased pain in the left shoulder area near the rotator cuff area. The patient has some pain in her right hip as well, which is healing. Has increased improvement in the cellulitis. IMPRESSION: 1. Fall with fracture of the right hip, status post osteoplasty. 2. Chronic pain, lumbar/back -- failed back syndrome. 3. History of fracture and right tibia reduction and internal fixation. 4. Findings of new meniscal tear in the right leg. 5. History of Zika virus -- stable. 6. Continued tobacco use. 7. Anxiety. 8. Diabetes. 9. Generalized weakness. 10. Gastroesophageal reflux. 11. Hiatal hernia. 12. Hypertension. 13. Migraines. 14. Depression. 15. Reflex sympathetic dystrophy type syndrome. RECOMMENDATIONS: We discussed treatment options with the patient. At this juncture, she will continue with her medications. She finds that her medications are helpful. She does not have any complications with them. She is aware that opioid medications can become less effective as time goes on. She is aware that opioid medications for some people can be problematic. She has not shown any signs of addiction. She has taken the medication as prescribed. These medications continue to enhance her ability to become more mobile and perform activities with physical therapy to increase her stamina and increase [address] [address] PAIN MANAGEMENT CONSULTATION Name: TAMARA KEYS Room: [facility] MAYURI Chang#: [id number] Admission: 07/20/19 Attend Phys: Nasreen Dockery MD Discharge: Date of : 55 Report #: [id number] her feeling of wellbeing. She is being evaluated for low hemoglobin. She did have a hemoglobin of 6.6. They are thinking about doing a colonoscopy to evaluate this. She has not really fond of undergoing another bowel prep. She will call us if she has any concerns. We would like to thank you for letting us participate in her care. We hope she continues to improve. By: [id number]. Gilmer Dockery MD /HEDY
== END ==
LOC: M.PC 04:56
DX: S72.001A Fracture of unspecified part of neck of right femur, initial encounter for closed fracture (principal); S83.241A Other tear of medial meniscus, current injury, right knee, initial encounter; F41.9 Anxiety disorder, unspecified; E11.9 Type 2 diabetes mellitus without complications; K21.9 Gastro-esophageal reflux disease without esophagitis; K44.9 Diaphragmatic hernia without obstruction or gangrene; I10 Essential (primary) hypertension; G43.909 Migraine, unspecified, not intractable, without status migrainosus; F32.9 Major depressive disorder, single episode, unspecified; W19.XXXA Unspecified fall, initial encounter; Y93.89 Activity, other specified; Y92.89 Other specified places as the place of occurrence of the external cause; Y99.8 Other external cause status

== ENCOUNTER → 2019-08-01 | Outpatient (CLI) | payer MEDICARE ==
[2019-08-01 08:40] VITALS: BP 115/61
[2019-08-01 10:50] VITALS: BP 120/60
== END ==
LOC: M.INFUS 04:54
DX: D64.9 Anemia, unspecified (principal)

== ENCOUNTER → 2019-08-07 | Outpatient (CLI) | payer MEDICARE ==
[2019-08-07 08:24] VITALS: BP 132/66
--- NOTE | 2019-08-07 10:48 | NUR ---
ARRIVED PER WHEELCHAIR. TRANSFERED SELF TO RECLINER. IV STARTED WITH OUT DIFFICULTY. DENIES ADVERSE REACTION TO PRIOR INFUSION OF SAME LAST WEEK. INFUSION COMPLETED AND TOLERATED WELL. ANNELIESE QUESTIONS OR NEEDS AT DISCHARGE.
== END ==
LOC: M.INFUS 03:02
DX: D64.9 Anemia, unspecified (principal)

== ENCOUNTER → 2019-08-17 | Outpatient (CLI) | payer MEDICARE ==
[~2019-08-17] MED LIST changes: +VITAMIN D400 UNIT PO; +[UNRECOGNIZED DRUG - OTHER]
--- NOTE | ~2019-08-17 | PAINCON ---
[address] [address] PAIN MANAGEMENT CONSULTATION Name: TAMARA KEYS Room: [facility] GIOVANNI Charlene#: [id number] Admission: 08/17/19 Attend Phys: Nasreen Dockery MD Discharge: Date of : 55 Report #: [id number] THIS REPORT FOR: //name// CC: Meka Dockery CHIEF COMPLAINT: "I did fall when I missed the bed, but I did not break anything." HISTORY: The patient is a 64-year-old female who has been followed in the pain clinic. As you recall, she has had some tragedy last year. She fell and broke her right hip. She has undergone surgery and hip replacement because of this. She also had some problems with her right ankle. She did fracture her lower ankle. She recently returned to her bedroom. She was sitting on her bed. She misjudged it. She fell down onto her buttocks. She is having some pain and discomfort in the buttocks area. She notes that overall things are going reasonably well. She does not feel that she has fractured anything, but does have some soreness in this area. She has continued to have some problems with endurance. She states that she has low iron. She has been taking the iron infusions. She stayed as active as possible. She has gone to jazzercise. Because of the low hemoglobin and fatigue, she notes that she sometimes nods off. She states that she nods off while she is at jazzercise. She does not drive. She has returned today for renewal of her medications. States that she is going to be worked up for the low hemoglobin, which was 8.2. ALLERGIES: No known drug allergies. CURRENT MEDICATIONS: The patient stopped Mobic. She is no longer on Eliquis. She is on Zanaflex, amitriptyline, gabapentin 800 mg, Breo 200 mcg, Spiriva, Ventolin, Ativan 1 mg at bedtime, Singulair 10 mg, metformin 500 mg, omeprazole 40 mg. PAIN CLINIC ASSESSMENT AND PQRS: 1. The patient has some pain and discomfort in her right hip. She has some pain in her tailbone area after a fall. She is not being treated for rheumatoid arthritis. The patient has the osteoarthritic changes in her hips. 2. Height 5 feet 5 inches, weight 164 pounds, BMI is 27.1. 3. Vital signs: Blood pressure 139/72, heart rate 85, respiratory rate 16, room air saturation 96%, and temperature 98.1. 4. Pain intensity 3 out of 10. 5. Fall history: The patient did fall. She did not seek medical attention. 6. Blood thinner. The patient is not on a blood thinning medication. 7. Opioids. The patient continues to find opioid medications helpful. She is taking them as prescribed. PAIN CLINIC ASSESSMENT: 1. [place] [address] PAIN MANAGEMENT CONSULTATION Name: TAMARA KEYS [id number] Admission: 08/17/19 Attend Phys: Nasreen Dockery MD Discharge: Date of : 55 Report #: [id number] 2. Functional assessment tool has been reviewed. 3. Recreational drug use: The patient denies. 4. Tobacco: The patient continues to smoke cigarettes. We have discussed the benefits of smoking cessation. 5. Alcohol: The patient rarely drinks alcoholic beverages. PHYSICAL EXAMINATION: GENERAL: The patient is a well-developed, well-nourished white female. Appears her stated age. She is alert and oriented x 3. Her affect is appropriate. Speech is fluent. She is in a wheelchair. HEENT: Normocephalic, atraumatic. Extraocular eye muscles intact. Sclerae nonicteric. Mucous membranes are moist. NECK: Without adenopathy or JVD. HEART: Regular rate. ABDOMEN: Nontender. LUNGS: The patient has a slight congestion and clears with coughing. EXTREMITIES: Upper extremity muscle strength judged to be 4+/5 for the major muscle groups in the upper extremity. The patient has some continued left shoulder pain near her rotator cuff. The patient has some pain and discomfort in the right hip, which is well healing. The patient has some soreness in the tailbone area when she fell on after missing the bed. IMPRESSION: 1. Fall and fracture of the right hip, status post osteoplasty. 2. Chronic pain, lumbar back/failed back syndrome. 3. History of fracture of the right tibial with open reduction and internal fixation. 4. Finding of a new meniscal tear in the right leg. 5. History of Zika virus, stable. 6. Continued abuse of tobacco. 7. Anxiety. 8. Diabetes. 9. Generalized weakness. 10. Gastroesophageal reflux. 11. Hiatal hernia. 12. Hypertension. 13. Migraine headaches. 14. Depression. 15. Reflex sympathetic dystrophy. 16. Iron deficiency with anemia. RECOMMENDATIONS: We discussed treatment options with the patient. At this juncture, we will continue with her medications. She feels that the medications are helpful. She continues to stay as active as she is able to tolerate it. She finds the hydrocodone medication is beneficial. She does not have any problems with thinking or causing any untoward other problems. Feels that the [facility] [address] [place] [address] PAIN MANAGEMENT CONSULTATION Name: TAMARA KEYS [facility]#: [id number] Admission: 08/17/19 Attend Phys: Nasreen Dockery MD Discharge: Date of : 55 Report #: [id number] amitriptyline is helpful and we will continue with this medication. She continues with gabapentin 800 mg t.i.d. She finds that the Zanaflex medication is helpful with spasms. She is aware that opioid medications can become less effective as time goes on. She has taken the medication as prescribed. She has not shown any signs of dependency. She will follow up with her primary physician. We had a cursory discussion of workups for iron deficiency anemia/low hemoglobins. We would like to thank you for letting us to participate in her care. We hope she continues to improve. By: 1133 1403N. Gilmer Dockery MD /nt
== END ==
LOC: M.PC 09:40
DX: S72.001A Fracture of unspecified part of neck of right femur, initial encounter for closed fracture (principal); F41.9 Anxiety disorder, unspecified; G89.29 Other chronic pain; E11.9 Type 2 diabetes mellitus without complications; K21.9 Gastro-esophageal reflux disease without esophagitis; I10 Essential (primary) hypertension; G43.909 Migraine, unspecified, not intractable, without status migrainosus; F32.9 Major depressive disorder, single episode, unspecified; W19.XXXA Unspecified fall, initial encounter; Y93.89 Activity, other specified; Y92.89 Other specified places as the place of occurrence of the external cause; Y99.8 Other external cause status

== ENCOUNTER → 2019-09-12 | Outpatient (CLI) | payer MEDICARE ==
--- NOTE | ~2019-09-12 | PAINCON ---
[address] [address] PAIN MANAGEMENT CONSULTATION Name: TAMARA KEYS Room: [facility] GIOVANNI BlackKwameAnnaKwame#: [id number] Admission: 09/12/19 Attend Phys: Nasreen Dockery MD Discharge: Date of : 55 Report #: [id number] THIS REPORT FOR: //name// CC: Meka Dockery PRIMARY CARE PHYSICIAN: Dr. Meka Lamar. CHIEF COMPLAINT: Pain in the low back and left hip. HISTORY: The patient is a 64-year-old female, who has been followed in the pain clinic because of chronic pain. As you will recall, she has had somewhat of a tumultuous year. She fractured her hip. Had a fracture of her ankle and has undergone hip replacement. She rates her pain as a 4/10 at this point. Notes that her pain now seems to be changing somewhat. There is more of a neuropathic quality to it. She chronically feels tired. Has been found to have a low hemoglobin in the past. States that she has had transfusions and that raised it up to about 10 g. She has been receiving infusions of iron. These make her feel better. She has fallen twice since her last visit. She has not needed hospital assistance after those falls. She would like to continue with her medication and would like to have a CBC with differential and a ferritin level drawn to see how much progress she is making. ALLERGIES: No known drug allergies. CURRENT MEDICATIONS: Zanaflex, amitriptyline, gabapentin, Breo 200 mcg, Spiriva, Ventolin, Ativan at bedtime, Singulair 10 mg, metformin 500 mg, omeprazole 40 mg. PAIN CLINIC ASSESSMENT AND PQRS: 1. The patient does have pain and discomfort in her right hip. She has some pain in the low back area. She is in a wheelchair. 2. Height 5 feet 5 inches, weight 165 pounds, BMI is 27.4. 3. Vital signs: Blood pressure 133/69, heart rate 71, respiratory rate 16, room air saturation is 95%, temperature 98.1. 4. Pain intensity 11/23. 5. Fall history: The patient has fallen on 2 occasions, but did not require hospitalization. 6. Blood thinner. The patient is not on a blood thinning medication. 7. Opioids. The patient continues to find opioid medications helpful. She is taking them as prescribed. 8. Functional assessment tool has been reviewed. 9. Recreational drug use: The patient denies. 10. Tobacco: The patient continues to smoke. Discussed benefits of smoking cessation. 11. Alcohol: The patient rarely [place] [address] PAIN MANAGEMENT CONSULTATION Name: TAMARA KEYS Room: [facility] Charlene#: [id number] Admission: 09/12/19 Attend Phys: Nasreen Dockery MD Discharge: Date of : 55 Report #: [id number] PHYSICAL EXAMINATION: GENERAL: The patient is a well-developed, well-nourished white female. Appears her stated age. She is alert and oriented x 3. She is unaccompanied. Her affect is appropriate. She is in a wheelchair. HEENT: Normocephalic, atraumatic. Extraocular eye muscles intact. Sclerae nonicteric. Mucous membranes moist. NECK: Without adenopathy or JVD. HEART: Regular rate. CHEST: The patient continues to cough and clears her throat frequently during the interview. ABDOMEN: Nontender. EXTREMITIES: Upper extremity muscle strength judged to be 4+/5 for the major muscle groups in the upper extremity. The patient has pain and discomfort in the lower portion of her back with some pain that radiates down into her left hip and low back area. IMPRESSION: 1. Fall and fracture of the right hip, status post osteoplasty, right hip. 2. Chronic pain, lumbar/failed back syndrome. 3. History of fracture of the right tibia with open reduction and internal fixation. 4. Finding of meniscal tear in the right leg. 5. History of Zika virus, stable. 6. Continued abuse of tobacco. 7. Anxiety. 8. Diabetes. 9. Generalized weakness. 10. Gastroesophageal reflux. 11. Hiatal hernia. 12. Hypertension. 13. Migraine headaches. 14. Depression. 15. Reflex sympathetic dystrophy. 16. Iron-deficiency anemia. RECOMMENDATIONS: We discussed treatment options with the patient. At this juncture, we will continue with the patient's medications. A script for her opioid medications have been rewritten. She is aware that these medications can become less effective as time goes on. She will also continue with amitriptyline 50 mg 2 tablets daily. The patient will continue with gabapentin 800 mg 1 p.o. t.i.d. She will continue with the hydrocodone 10/325 one p.o. q.i.d. She will call us if she has any problems with her medications. The patient's laboratory, the patient's CBC with differential returned. Hemoglobin of 13.8, hematocrit 40.9, platelets 127. Differential 83% segs, 11% [place] [address] PAIN MANAGEMENT CONSULTATION Name: TAMARA KEYS Room: [facility]#: [id number] Admission: 09/12/19 Attend Phys: Shakir. Gilmer Dockery MD Discharge: Date of : 55 Report #: [id number] lymphocytes, 4% monocytes. The patient is aware that opioids can become less effective as time goes on. She has taken the medication as prescribed. Hopefully, she will continue to increase her strength and activity. She has not had enough strength to go to [facility]. By: 1426 [id number]. Gilmer Dockery MD /nt
[2019-09-12 10:24] LABS: ABSOLUTE LYMPHOCYTES 0.6 thou/uL (0.8-5.3); ABSOLUTE MONOCYTES 0.2 thou/uL (0.0-1.2); ABSOLUTE NEUTROPHILS 4.9 thou/uL (1.6-8.1); BASOPHILS 0.5 %; EOSINOPHILS 0.5 %; HEMATOCRIT 40.9 % (37.0-47.0); HEMOGLOBIN 13.8 gm/dL (12.0-15.0); MCH 31.9 pg (26.0-34.0); MCHC 33.9 g/dL (28.0-37.0); MCV 94.2 fL (80.0-100.0); MONOCYTES 4.2 %; MPV 8.3 fl. (7.2-11.1); NUCLEATED RBCS 0 /100WBC; PLATELET COUNT* 127 thou/uL (150-400); POLYS 83.8 %; RBC 4.34 mil/uL (4.20-5.00); RDW-CV 24.9 % (10.5-14.5); WBC 5.9 thou/uL (4.0-11.0)
[2019-09-12 11:30] LABS: ANISOCYTOSIS 2+; MICROCYTES 2+
[2019-09-12 11:31] LABS: PLATELET ESTIMATE DECREASED
== END ==
LOC: M.PC 03:32
PROVIDERS: Anesthesiology Pain Medicine
DX: S72.001A Fracture of unspecified part of neck of right femur, initial encounter for closed fracture (principal); F41.9 Anxiety disorder, unspecified; E11.9 Type 2 diabetes mellitus without complications; K21.9 Gastro-esophageal reflux disease without esophagitis; R53.1 Weakness; I10 Essential (primary) hypertension; K44.9 Diaphragmatic hernia without obstruction or gangrene; G43.909 Migraine, unspecified, not intractable, without status migrainosus; F32.9 Major depressive disorder, single episode, unspecified; W19.XXXA Unspecified fall, initial encounter; Y93.89 Activity, other specified; Y92.89 Other specified places as the place of occurrence of the external cause; Y99.8 Other external cause status

== ENCOUNTER → 2019-10-10 | Outpatient (CLI) | payer MEDICARE ==
--- NOTE | 2019-10-31 09:57 | PAINCON ---
[address] [address] PAIN MANAGEMENT CONSULTATION Name: TAMARA KEYS [facility]AnnaKwame#: [id number] Admission: 10/10/19 Attend Phys: Nasreen Dockery MD Discharge: Date of : 55 Report #: [id number] THIS REPORT FOR: //name// cc: Meka Lamar MD, Lin W. MD ~ THIS REPORT FOR: //name// CC: Meka Dockery CHIEF COMPLAINT: Low back and left hip pain. HISTORY: The patient is a 64-year-old female who has been followed in the pain clinic because of chronic pain for years. She has pain in her low back area. She has pain in her left hip. About three weeks ago, she was hospitalized for cellulitis. She was treated with IV antibiotics. She rates her pain as a 3/10 today. She also has neuropathy below her knees and in her hands. She has not fallen since we saw her last. She has returned today for renewal of her medications. ALLERGIES: No known drug allergies. CURRENT MEDICATIONS: Zanaflex, amitriptyline, gabapentin, Breo 200 mcg, Spiriva, Ventolin, Ativan at bedtime, Singulair 10 mg, metformin 500 mg and omeprazole 40 mg. PAIN CLINIC ASSESSMENT AND PQRS: 1. The patient does have some pain and discomfort in her right hip. She has pain in her low back area. She is in a wheelchair. Height 5 feet 5 inches, weight 162 pounds, BMI is 27.0. 2. Vital signs: Blood pressure 111/57, heart rate 94, respiratory rate 18, room air saturation again is 94%, temperature 97.5. 3. Pain intensity 10/23. 4. Fall history: The patient has not fallen since we saw her last. 5. Blood thinner. The patient is not on a blood-thinning medication. 6. Opioids. The patient received medication from one source, the pain clinic. 7. Functional assessment tool reviewed. 8. Recreational drug use. The patient denies use of recreational drugs. 9. Tobacco: The patient continues to smoke. Benefits of smoking cessation have been discussed. 10. Alcohol: The patient rarely drinks alcoholic beverages. PHYSICAL EXAMINATION: GENERAL: The patient is a well-developed, well-nourished white female. Appears her stated age. She is alert and oriented x 3. Her affect is appropriate. [place] [address] PAIN MANAGEMENT CONSULTATION Name: TAMARA KEYS Room: [facility]#: [id number] Admission: 10/10/19 Attend Phys: Nasreen Dockery MD Discharge: Date of : 55 Report #: [id number] HEENT: Normocephalic, atraumatic. Extraocular eye muscles intact. NECK: Without adenopathy or JVD. HEART: Regular rate. CHEST: Some congestion. The patient continues to cough and clear her throat during the interview. ABDOMEN: Nontender. EXTREMITIES: Upper extremity muscle strength judged to be 4+/5 for the major muscle groups in the upper extremity. The patient has some pain and discomfort in lower extremity with pain, particularly in the left hip and low back area. IMPRESSION 1. Fall and fracture of right hip, status post osteoplasty right hip. 2. Chronic pain/lumbar, failed back syndrome. 3. History of fracture of the right tibia with reduction and internal fixation. 4. Finding of meniscal tear in the right leg. 5. History of Zika virus -- stable. 6. Continued abuse of tobacco. 7. Anxiety. 8. Diabetes. 9. Generalized weakness. 10. Gastroesophageal reflux. 11. Hiatal hernia. 12. Hypertension. 13. Migraine headaches. 14. Depression. 15. Reflex sympathetic dystrophy. 16. Iron deficiency anemia. RECOMMENDATIONS: We discussed treatment options with the patient. At this juncture, she feels that the medications continue to be beneficial. She is aware that the medications can become less effective as the time goes on secondary to development of tolerance. She is taking the medication as prescribed. She has not shown any signs of addiction. She is finding benefit from medication use. Her sensorium is clear. She keeps her medications in a guarded area. A script for her medications have been rewritten. She will continue with gabapentin 800 mg t.i.d. She will continue with hydrocodone 10 mg 1 p.o. q.i.d. She will call us if she has any concerns. We would like to thank you for letting us participate in her care. We hope she continues to improve. <ELECTRONICALLY SIGNED> By: Nasreen Dockery MD 10/31/19 0957 [id number]. Gilmer Dockery MD /kain
== END ==
LOC: M.PC 03:58
DX: S72.001A Fracture of unspecified part of neck of right femur, initial encounter for closed fracture (principal); F41.9 Anxiety disorder, unspecified; E11.9 Type 2 diabetes mellitus without complications; K21.9 Gastro-esophageal reflux disease without esophagitis; I10 Essential (primary) hypertension; K44.9 Diaphragmatic hernia without obstruction or gangrene; F32.9 Major depressive disorder, single episode, unspecified; G40.909 Epilepsy, unspecified, not intractable, without status epilepticus; X58.XXXA Exposure to other specified factors, initial encounter; Y93.89 Activity, other specified; Y92.89 Other specified places as the place of occurrence of the external cause; Y99.8 Other external cause status

== ENCOUNTER → 2019-11-23 | Outpatient (CLI) | payer MEDICARE ==
--- NOTE | 2019-11-29 15:09 | PAINCON ---
[address] [address] PAIN MANAGEMENT CONSULTATION Name: TAMARA KEYS [id number] Admission: 11/23/19 Attend Phys: Nasreen Dockery MD Discharge: Date of : 55 Report #: [id number] THIS REPORT FOR: //name// cc: Meka Lamar MD, Lin W. MD ~ THIS REPORT FOR: //name// CC: Meka Dockery DATE OF SERVICE: 11/23/2019 CHIEF COMPLAINT: I fell and fractured my right arm. HISTORY: The patient is a 64-year-old female who has been followed in the pain clinic because of chronic pain. She recently fell. About 4 weeks ago she fell and shattered in 4 pieces her right humerus. She also developed a right tibial plateau fracture. She has been having more pain and discomfort as a result of this new trauma. She has been undergoing physical therapy. She has also been undergoing occupational therapy. She rates her pain as a 4-5/10. She still has some significant pain from previous fractures in her hip and ankle. She has returned today for renewal of her medications. ALLERGIES: No known drug allergies. CURRENT MEDICATIONS: Tizanidine 4 mg 1-1/2 tablets at bedtime, amitriptyline 50 mg b.i.d., gabapentin 800 mg t.i.d., hydrocodone 10/325 one p.o. q. 4-6 hours p.r.n., Singulair, metformin 500 mg, omeprazole, Ventolin, Spiriva, Ativan at bedtime, gabapentin, Breo 200 mcg. PAIN CLINIC ASSESSMENT AND PQRS: 1. The patient does have some discomfort in her right hip. She has pain in her low back area. Has pain in her right arm with a scar from the right deltoid down to the medial portion of her anterior bicep area. 2. Vital Signs: Blood pressure 151/75, heart rate 81, respiratory rate 16, room air saturation 96%, temperature is 98.2. 3. Height 5 feet 5 inches, weight 160 pounds, BMI is 27. 4. Pain intensity is 4-5/10. 5. Fall history: The patient fell recently and fractured the above-mentioned areas. 6. Blood thinner. The patient is not on a blood thinning medication. 7. Hypertension. The patient is not being treated for hypertension. 8. Opioids. The patient received medication from the pain clinic. 9. Functional assessment tool, low for opioid use. 10. Recreational drug use: The patient denies. 11. Tobacco: The patient continues to smoke[place] [address] PAIN MANAGEMENT CONSULTATION Name: TAMARA KEYS Room: [facility]#: [id number] Admission: 11/23/19 Attend Phys: Nasreen Dockery MD Discharge: Date of : 55 Report #: [id number] were again discussed. 12. Alcohol. The patient rarely drinks alcoholic beverages. PHYSICAL EXAMINATION: GENERAL: The patient is a well-developed, well-nourished white female. Appears her stated age. She is alert and oriented x 3. Her affect is appropriate. Speech is fluent. HEENT: Normocephalic, atraumatic. Extraocular eye muscles intact. Sclerae nonicteric. Mucous membranes are moist. NECK: Without adenopathy or JVD. HEART: Regular. CHEST: Some congestion and clears with coughing and clear in her throat. MUSCULOSKELETAL: Long incision from the deltoid down to the anterior portion of her biceps on the right shoulder. Muscle strength on the right side is 3/5. Muscle strength in left 4+/5 for the major muscle groups on the left side. The patient is in a wheelchair. Has complaint of pain in the right knee area. IMPRESSION: 1. Recent fall with fracture of the right humerus in 4 places, status post previous fall with right hip fracture and osteoplasty of right hip. 2. Chronic pain, failed back syndrome. 3. History of fracture of the right tibia with reduction and internal fixation. 4. Finding of meniscal tear on the right leg. 5. History of Zika virus -- stable. 6. Continued abuse of tobacco. 7. Anxiety. 8. Diabetes. 9. Generalized weakness. 10. Gastroesophageal reflux. 11. Hiatal hernia. 12. Hypertension. 13. Migraine headaches. 14. Depression. 15. Reflex sympathetic dystrophy type pain. 16. Iron deficiency anemia. RECOMMENDATIONS: We discussed treatment options with the patient. At this juncture, we will continue with her medications. She feels that her medications are helpful. Unfortunately, she did fall while getting out of bed and walking the dog. She will continue with these activities provided by her physical therapist. A script for her medications of gabapentin 800 mg t.i.d. have been written. The patient will also continue with hydrocodone 10 mg 1 p.o. q.i.d. She will call us if she has any concerns. [address] [address] PAIN MANAGEMENT CONSULTATION Name: ALLISON KEYSN Khalif Room: [facility] GI[facility]ANNI Ernestine#: [id number] Admission: 11/23/19 Attend Phys: Nasreen Dockery MD Discharge: Date of : 55 Report #: [id number] We would like to thank you for letting us participate in her care. We hope she continues to improve. <ELECTRONICALLY SIGNED> By: Nasreen Dockery MD 11/29/19 1509 1035 [id number]. Gilmer Dockery MD /[facility]
== END ==
LOC: M.PC 11-07 09:00
DX: S42.301D Unspecified fracture of shaft of humerus, right arm, subsequent encounter for fracture with routine healing (principal); G89.4 Chronic pain syndrome; E11.9 Type 2 diabetes mellitus without complications; R53.1 Weakness; K21.9 Gastro-esophageal reflux disease without esophagitis; K44.9 Diaphragmatic hernia without obstruction or gangrene; I10 Essential (primary) hypertension; R51 Headache; F32.9 Major depressive disorder, single episode, unspecified; D50.9 Iron deficiency anemia, unspecified; F17.200 Nicotine dependence, unspecified, uncomplicated; F41.9 Anxiety disorder, unspecified; Z87.39 Personal history of other diseases of the musculoskeletal system and connective tissue; X58.XXXD Exposure to other specified factors, subsequent encounter

== ENCOUNTER → 2019-12-21 | Outpatient (CLI) | payer MEDICARE ==
--- NOTE | 2020-01-02 08:21 | PAINCON ---
[address] [address] PAIN MANAGEMENT CONSULTATION Name: TAMARA KEYS Room: [facility] BlackGen#: [id number] Admission: 12/21/19 Attend Phys: Nasreen Dockery MD Discharge: Date of : 55 Report #: [id number] THIS REPORT FOR: //name// cc: Meka Lamar MD, Lin W. MD ~ THIS REPORT FOR: //name// CC: Meka Dockery DATE OF SERVICE: 12/21/2019 CHIEF COMPLAINT: "I injured my right leg and had stitches." HISTORY: The patient is a 64-year-old female who has been followed in the pain clinic. As you may recall, she has a number of problems. She has fallen on occasion. She has fractured her hip, fractured her right arm, fractured her ankle. These were done on separate occasions. She recently shot her right leg in the car door. As a result, she needed stitches. She has been managing the pain with her current medications. She is trying to stay busy with physical therapy. She rates her pain as a 3-4 today. Pain is worse with walking, bending, lifting. Right arm is healing. She still has pain and discomfort involving her hip, ankle and right arm. She has returned today for renewal of her medications. ALLERGIES: No known drug allergies. CURRENT MEDICATIONS: Tizanidine 4 mg 1-1/2 tablets at bedtime, amitriptyline 50 mg b.i.d., gabapentin 800 mg t.i.d., hydrocodone 10/325 1 p.o. q.4-6 hours, Singulair, metformin 500 mg, omeprazole, Ventolin, Spiriva, Ativan at bedtime, gabapentin, Breo 200 mcg. PAIN CLINIC ASSESSMENT AND PQRS: 1. The patient does have some pain and discomfort in her right hip. Has pain in the low back area. Has pain in her right arm with a scar with sutures, which had been removed and the right deltoid area down to the anterior portion of her biceps. The patient has a lesion in the right leg where she has had the door trauma. 2. Vital Signs: Blood pressure 123/66, heart rate 71, respiratory rate 16, room air saturation 97%, temperature 98.6. 3. Height 5 feet 5 inches, past weight 160 pounds, BMI is 27. 4. Pain intensity, 3/10. 5. Fall history. The patient has not fallen since we saw her last, but did have trauma to her right leg. 6. Blood thinner. The patient is not on a blood thinning medication. 7. Hypertension. The patient is not [place] [address] PAIN MANAGEMENT CONSULTATION Name: TAMARA KEYS [facility]: [facility]#: [id number] Admission: 12/21/19 Attend Phys: Nasreen Dockery MD Discharge: Date of : 55 Report #: [id number] 8. Opioids. The patient receives medication from the pain clinic. 9. Functional assessment tool, low for opioid use. 10. Recreational drugs. The patient denies. 11. Tobacco. The patient continues to smoke. Benefits of smoking cessation have been discussed. 12. Alcohol. The patient rarely drinks alcoholic beverages. PHYSICAL EXAMINATION: GENERAL: The patient is a well-developed, well-nourished, white female. Appears her stated age. She is alert and oriented x 3. Her affect is appropriate. Speech is fluent. HEENT: Normocephalic, atraumatic. Extraocular eye muscles intact. Sclerae nonicteric. Mucous membranes are moist. NECK: Without adenopathy or JVD. HEART: Regular. CHEST: Some signs of congestion with coughing. MUSCULOSKELETAL: Well-healing scar on the right arm. The patient is in a wheelchair. Complains of some pain in the right leg. Has a laceration, looks like about a inch long. Has sutures in place. Muscle strength, left side 3/5. Muscle strength in upper extremity 4+/5. IMPRESSION: 1. Status post fall and fracture of the right humerus in 4 places, status post previous fall with right hip fracture and osteoplasty of the right hip. 2. New trauma to the right leg after closing the door on it and stitches were placed. 3. Chronic pain, failed back syndrome. 4. History of fracture of the right tibia with reduction and internal fixation. 5. Finding of meniscal tear on the right leg. 6. History of Zika virus - stable. 7. Tobacco use. 8. Anxiety. 9. Diabetes. 10. Generalized weakness. 11. Gastroesophageal reflux. 12. Hiatal hernia. 13. Hypertension. 14. Migraine headaches. 15. Depression. 16. Reflex sympathetic dystrophy type pain. 17. Iron deficiency anemia. RECOMMENDATIONS: We discussed treatment options with the patient. At this juncture, we will continue with her medications. A script for the medications have been provided. The patient has been somewhat unfortunate. She continues to suffer from trauma. She has returned today for renewal of her medications. [address] [address] PAIN MANAGEMENT CONSULTATION Name: TAMARA KEYS [facility]: [facility]#: [id number] Admission: 12/21/19 Attend Phys: Nasreen Dockery MD Discharge: Date of : 55 Report #: [id number] We explained that these medications can be helpful. She is aware that opioid medications can become less effective as time goes on. She is aware that patients can become addicted to them. She has not shown any signs of addiction. Overall, given the problems that she has had, she seems to be doing reasonably well. A script for her medications have been renewed. She will call us if she has any concerns. The patient will continue with hydrocodone 10/325 1 p.o. q.4 hours p.r.n. She will also continue with gabapentin 800 mg t.i.d. The patient will continue with amitriptyline 50 mg 2 tablets at bedtime. She has used tizanidine to help with muscle spasms. We would like to thank you for letting us participate in her care. We hope she continues to improve. <ELECTRONICALLY SIGNED> By: Nasreen Dockery MD 01/02/20 0821 [id number]. Gilmer Dockery MD /[facility]
== END ==
LOC: M.PC 01:48
DX: S83.206D Unspecified tear of unspecified meniscus, current injury, right knee, subsequent encounter (principal); S89.91XD Unspecified injury of right lower leg, subsequent encounter; D50.9 Iron deficiency anemia, unspecified; F32.9 Major depressive disorder, single episode, unspecified; G43.009 Migraine without aura, not intractable, without status migrainosus; I10 Essential (primary) hypertension; K44.9 Diaphragmatic hernia without obstruction or gangrene; K21.9 Gastro-esophageal reflux disease without esophagitis; E11.9 Type 2 diabetes mellitus without complications; M62.81 Muscle weakness (generalized); F41.9 Anxiety disorder, unspecified; A92.5 Zika virus disease; Z17.0 Estrogen receptor positive status [ER+]; Z87.81 Personal history of (healed) traumatic fracture; G89.4 Chronic pain syndrome; Z79.899 Other long term (current) drug therapy; X58.XXXD Exposure to other specified factors, subsequent encounter

== ENCOUNTER → 2020-01-18 | Outpatient (CLI) | payer MEDICARE ==
--- NOTE | ~2020-01-18 | PAINCON ---
[address] [address] PAIN MANAGEMENT CONSULTATION Name: ATMARA KEYS Room: [facility] GI[facility]ANNI BlackGen#: [id number] Admission: 01/18/20 Attend Phys: Nasreen Dockery MD Discharge: Date of : 55 Report #: [id number] THIS REPORT FOR: //name// cc: Meka Lamar MD, Lin W. MD ~ THIS REPORT FOR: //name// CC: Meka Dockery DATE OF SERVICE: 01/18/2020 CHIEF COMPLAINT: Low back pain, left hip pain, right arm pain, and left leg pain. HISTORY: The patient is a 65-year-old female who has been followed in the pain clinic because of chronic pain. She does have a plate in her right humerus. She feels that it is moving. She may have to have surgery to correct this. It is causing her increased pain. She continues to do physical therapy at home. She notes that this increased activity does cause worsening of her pain and discomfort. She rates her pain as a 3/10 at this point. She feels that her medications of hydrocodone, gabapentin, amitriptyline, and tizanidine provided about 75% pain benefit. Walking, sitting, standing, climbing stairs, lifting and bending are problematic. She does continue to smoke. She has returned today for renewal of her medications. Still has some pain in her ankle. ALLERGIES: No known drug allergies. CURRENT MEDICATIONS: Tizanidine 4 mg 1-1/2 tablet at bedtime, amitriptyline 50 mg b.i.d., gabapentin 800 mg t.i.d., hydrocodone 10/325 one p.o. q. 4-6 hours, Singulair, metformin 500 mg, omeprazole, Ventolin, Spiriva, Ativan at bedtime, gabapentin, and Breo 200 mcg. PAIN CLINIC ASSESSMENT AND PQRS: 1. The patient does have some pain and discomfort in her right hip. She has pain in the low back area. Has pain in her right arm with a scar and feels that this melania is moving. 2. Vital Signs: Blood pressure is 132/76, heart rate 75, respiratory rate 16, room air saturation 96%, temperature is 98 degrees. Height 5 feet 5 inches, weight 160 pounds. 3. Fall history. The patient has not fallen since we saw her last. 4. Blood thinner. The patient is not on a blood thinning medication. 5. Hypertension. The patient is not being treated for hypertension. 6. Opioids. The patient receives medication from the pain clinic. 7. Functional assessment tool, low for opioid use. 8. Recreational drug use. [place] [address] PAIN MANAGEMENT CONSULTATION Name: TAMARA KEYS Room: [facility]#: [id number] Admission: 01/18/20 Attend Phys: Nasreen Dockery MD Discharge: Date of : 55 Report #: [id number] 9. Tobacco: The patient continues to smoke. Benefits of smoking cessation have been discussed. 10. Alcohol: The patient rarely drinks alcoholic beverages. PHYSICAL EXAMINATION: GENERAL: The patient is a well-developed, well-nourished white female. Appears her stated age. She is alert and oriented x 3. Her affect is appropriate. Speech is fluent. HEENT: Normocephalic, atraumatic. Extraocular eye muscles intact. Sclerae nonicteric. Mucous membranes are moist. The patient is wearing a mask. HEART: Regular rate. CHEST: Notes some congestion when coughing. MUSCULOSKELETAL: Well-healing scar on the right arm. The patient is in a wheelchair. Complains of pain in her right leg. She has complained of weakness in the lower extremities, left upper muscle strength judged to be 4+/5. IMPRESSION: 1. Fracture of the right humerus in 4 places, status post fall with right hip fracture and osteoplasty of the right hip. 2. Chronic pain/failed back syndrome. 3. History of fracture of the right tibia with reduction and internal fixation. 4. Meniscal tear on the right leg. 5. Zika virus - stable. 6. Tobacco use. 7. Anxiety. 8. Diabetes. 9. Generalized weakness. 10. Gastroesophageal reflux. 11. Hiatal hernia. 12. Hypertension. 13. Migraine headaches. 14. Depression. 15. Reflex sympathetic dystrophy type pain. 16. Iron deficiency anemia. RECOMMENDATIONS: We discussed treatment options with the patient. I explained to her benefits of smoking cessation on healing. She does note some movement in the right arm melania. She may have to have surgery to stabilize this. A script for her medications of hydrocodone 10/325 one p.o. q. 4-6 hours have been provided. The patient will also continue with Elavil 50 mg at bedtime. She will use tizanidine 4 mg p.r.n. for muscle spasms. She will continue with gabapentin 800 mg 1 p.o. t.i.d. These medications have been prescribed. The patient is aware that opioid medications can become less effective as time goes on due to development of tolerance. She is not showing any signs of addiction. She has taken the medication as prescribed. A script for her medications have been sent to her pharmacy. [address] [address] PAIN MANAGEMENT CONSULTATION Name: TAMARA KEYS Room: [facility] MAYURI Chang#: [id number] Admission: 01/18/20 Attend Phys: Nasreen Dockery MD Discharge: Date of : 55 Report #: [id number] We would like to thank you for letting us participate in her care. We hope she continues to improve. By: [id number]. Gilmer Dockery MD /nt
== END ==
LOC: M.PC 03:55
PROVIDERS: ATTEND Anesthesiology Pain Medicine
DX: S42.301D Unspecified fracture of shaft of humerus, right arm, subsequent encounter for fracture with routine healing (principal); S83.206D Unspecified tear of unspecified meniscus, current injury, right knee, subsequent encounter; M25.552 Pain in left hip; M79.601 Pain in right arm; A92.5 Zika virus disease; E11.9 Type 2 diabetes mellitus without complications; M62.81 Muscle weakness (generalized); K21.9 Gastro-esophageal reflux disease without esophagitis; I10 Essential (primary) hypertension; K44.9 Diaphragmatic hernia without obstruction or gangrene; G43.009 Migraine without aura, not intractable, without status migrainosus; D50.9 Iron deficiency anemia, unspecified; F41.8 Other specified anxiety disorders; Z87.81 Personal history of (healed) traumatic fracture; Z72.0 Tobacco use; X58.XXXD Exposure to other specified factors, subsequent encounter

== ENCOUNTER → 2020-03-14 | Outpatient (CLI) | payer MEDICARE ==
--- NOTE | 2020-03-21 23:57 | PAINCON ---
[address] [address] PAIN MANAGEMENT CONSULTATION Name: TAMARA KEYS Room: [facility] ErnestineKwame#: [id number] Admission: 03/14/20 Attend Phys: Nasreen Dockery MD Discharge: Date of : 55 Report #: [id number] THIS REPORT FOR: //name// cc: Meka Lamar MD, Lin W. MD ~ THIS REPORT FOR: //name// CC: Meka Dockery DATE OF SERVICE: 03/14/2020 FOLLOWUP COMPLAINT: "Things are going okay. I am still having pain down in my leg." HISTORY: The patient is a 65-year-old female who has been followed in the pain clinic because of chronic pain. She has right hip pain, right leg pain and right arm pain. She has noticed that the plate in her right humerus appears to be migrating upward. She feels that she may have to have surgery to correct this. She has noticed some increased difficulty in moving and placing her right arm in different ranges of motion. She also has pain, which is of a neuropathic nature down into her legs. She feels that she may be developing some of this discomfort in her fingers as well. She has continued to work and do physical therapy activities. She has returned today for renewal of her medications. Rates her pain between 0 and 1 depending on the activity level. She still has some instability and gets around in a wheelchair. Walking, climbing stairs, lifting and bending are still problematic. ALLERGIES: No known drug allergies. CURRENT MEDICATIONS: Tizanidine 4 mg 1 tablet and a half at bedtime, amitriptyline 50 mg, gabapentin 800 mg t.i.d., hydrocodone 10/325 one p.o. q. 4-6 hours, Singulair, metformin 500 mg, omeprazole, Ventolin, Spiriva, Ativan at bedtime, gabapentin, Breo 200 mcg. PAIN CLINIC ASSESSMENT AND PQRS: 1. The patient has some discomfort in her right hip. She also has pain in her low back. She has pain, which is more problematic in the right arm with decreasing range of motion with some migration of the melania in her humerus. 2. Vital Signs: Blood pressure is 138/69, heart rate 70, respiratory rate 16, room air saturation 94%, temperature is 98.0, height 5 feet 5 inches, weight 168 pounds. 3. Fall history: The patient has not fallen since we saw her last. 4. Blood thinner. The patient is not on a blood thinning medication. 5. Hypertension. The patient is not being treated for hypertension. 6. Opioids. The patient receives [place] [address] PAIN MANAGEMENT CONSULTATION Name: TAMARA KEYS Room: [facility]#: [id number] Admission: 03/14/20 Attend Phys: Nasreen Dockery MD Discharge: Date of : 55 Report #: [id number] 7. Functional assessment tool, low for opioid use. 8. Recreational drug use. The patient denies. 9. Tobacco: The patient continues to smoke. Benefits of smoking cessation have again been discussed. 10. Alcohol: The patient rarely drinks alcoholic beverages. PHYSICAL EXAMINATION: GENERAL: The patient is a well-developed, well-nourished white female. Appears her stated age. She is alert and oriented x 3. Her affect is appropriate. Speech is fluent. HEENT: Normocephalic, atraumatic. Extraocular eye muscles intact. Sclerae nonicteric. Mucous membranes are moist. The patient is wearing glasses. The patient is wearing a mask. HEART: Regular rate. CHEST: Some congestion with coughing. ABDOMEN: Nontender. MUSCULOSKELETAL: 1. The patient has a well-healed scar in the right arm. There is note of the changing of position of the melania in her right humerus. It is migrating upward. 2. Right leg pain. 3. Continued weakness in the lower extremity. IMPRESSION: 1. Status post fracture of the right humerus ____ with melania placement, which appears to be migrating. 2. Right hip fracture and osteoplasty of the right hip. 3. Chronic pain, failed back syndrome. 4. History of fracture of the right tibia with reduction and internal fixation. 5. Meniscal tear of the right leg. 6. Zika virus infection/stable. 7. Tobacco use. 8. Anxiety. 9. Diabetes. 10. Generalized weakness. 11. Gastroesophageal reflux. 12. Hiatal hernia. 13. Hypertension. 14. Migraine headaches. 15. Depression. 16. Reflex sympathetic dystrophy type pain. 17. Iron deficiency anemia. RECOMMENDATIONS: We discussed treatment options with the patient. At this point, we will continue with her medications. She feels that things are going overall reasonably well. She is contemplating having an evaluation by orthopedic doctor. She may need to undergo surgery [place] [address] PAIN MANAGEMENT CONSULTATION Name: TAMARA KEYS Room: [facility] Ernestine#: [id number] Admission: 03/14/20 Attend Phys: Nasreen Dockery MD Discharge: Date of : 55 Report #: [id number] rectified. She would like to continue with her medications. She feels that they are beneficial. A script for her medications have been provided. She will continue with amitriptyline 50 mg b.i.d. She will also continue with gabapentin 800 mg t.i.d. A script for hydrocodone 10/325 one p.o. q.4 hours, a total 120 tablets have been provided. The patient will continue with her medications and call us if she has any concerns. She feels that the tizanidine is helpful and a script renewing her tizanidine has been made available. We would like to thank you for letting us participate in her care. We hope she continues to improve. <ELECTRONICALLY SIGNED> By: Nasreen Dockery MD 03/21/20 2357 1402 1902N. Gilmer Dockery MD /nt
== END ==
LOC: M.PC 03:54
PROVIDERS: ATTEND Anesthesiology Pain Medicine
DX: M79.605 Pain in left leg (principal); G89.29 Other chronic pain; M25.551 Pain in right hip; M25.541 Pain in joints of right hand; I10 Essential (primary) hypertension; Z79.899 Other long term (current) drug therapy; Z91.81 History of falling

== ENCOUNTER → 2020-07-04 | Outpatient (CLI) | payer MEDICARE ==
--- NOTE | ~2020-07-04 | PAINCON ---
[address] [address] PAIN MANAGEMENT CONSULTATION Name: TAMARA KEYS Room: [facility] Charlene#: [id number] Admission: 07/04/20 Attend Phys: Nasreen Dockery MD Discharge: Date of : 55 Report #: [id number] THIS REPORT FOR: cc: Meka Lamar MD, Lin W. MD ~ Nasreen oDckery MD DATE OF SERVICE: 07/04/2020 CHIEF COMPLAINT: Here for medication renewal. HISTORY: The patient is a 65-year-old female who has been followed in the pain clinic for some time. She returns today for renewal of her medications. She continues to have pain on the right hip, right leg and involving her right arm. She has problems with her right shoulder. She is scheduled to have the humerus repaired. There has been a migration of the plate in the right humerus upward. It is causing more pain and discomfort. She has some days, which are better than others. She rates her pain today as from 7-9. She had a right knee replacement on the 05/24. Her pain was quite problematic. Yesterday, she has returned today for renewal of her medications. ALLERGIES: No known drug allergies. CURRENT MEDICATIONS: Tizanidine 4 mg 1 p.o. at bedtime, amitriptyline 50 mg, gabapentin 800 mg t.i.d., hydrocodone 10/325 q. 4-6 hours, Singulair, metformin 500 mg, omeprazole, Ventolin, Spiriva, Ativan at bedtime, gabapentin, Breo 200 mcg. PAIN CLINIC ASSESSMENT AND PQRS: 1. The patient has some pain and discomfort in her right hip, also has pain in her low back, has pain in her right arm with decreasing range of motion, note some increased migration of the melania in her right humerus. 2. Vital Signs: Blood pressure 154/75, heart rate 109, respiratory rate 16, room air saturation 96%, temperature is 98.1. 3. Height 5 feet 5 inches, weight 154 pounds, BMI is 28. 4. Fall history: The patient has not fallen since we saw her last. 5. Blood thinner. The patient is not on a blood thinning medication. 6. Hypertension. The patient is not being treated for hypertension. 7. Opioids. The patient received medication from one source the pain clinic. 8. Functional assessment tool, low for opioid use. 9. Recreational drug use: The patient denies. 10. Tobacco: The patient continues to smoke, I have discussed the benefits of smoking cessation. 11. Alcohol. The patient rarely drinks alcoholic beverages. PHYSICAL EXAMINATION: GENERAL: The patient is a well-developed, well-nourished white female, [place] [address] PAIN MANAGEMENT CONSULTATION Name: TAMARA KEYS Room: [facility]#: [id number] Admission: 07/04/20 Attend Phys: Nasreen Dockery MD Discharge: Date of : 55 Report #: [id number] her stated age. She is alert and oriented x 3. Her affect is appropriate. HEENT: Normocephalic, atraumatic. Extraocular eye muscles intact. The patient is wearing a facial covering. She is wearing glasses. HEART: Regular. CHEST: Decreased breath sounds and some cough with congestion. ABDOMEN: Nontender. MUSCULOSKELETAL: Right upper extremity shows decreased range of motion and evidence of the migration of her prosthesis in the right shoulder. Lower extremity, the patient has a well-healed right knee. She is in a wheelchair, continued weakness of the lower extremities. IMPRESSION: 1. Status post fracture of the right humerus with melania placement, now migrating upward. 2. Right hip fracture with osteoplasty of the right hip. 3. Chronic pain, failed back syndrome. 4. History of fracture of the right tibia with reduction and internal fixation. 5. Right knee replacement. 6. Zika virus infection/stable. 7. Tobacco use. 8. Anxiety. 9. Diabetes. 10. Generalized weakness. 11. Gastroesophageal reflux. 12. Hiatal hernia. 13. Hypertension. 14. Migraine headaches. 15. Depression. 16. Reflex sympathetic dystrophy type pain. 17. Iron deficiency anemia. RECOMMENDATIONS: We discussed treatment options with the patient. At this juncture, we will continue with her medications. A script for her tizanidine has been provided. The patient will take 1-1/2 tablets total of 6 mg at bedtime. She will also continue with hydrocodone 10/325 one p.o. q.i.d. She will use amitriptyline 50 mg at bedtime 2 tablets for a total of 100 mg. She will continue with gabapentin 800 mg 1 p.o. t.i.d. A script for hydrocodone 10/325 will be continued. The patient will call us if she has any concerns. We would like to thank you for letting us participate in her care. We hope she continues to improve. By: [id number]. Gilmer Dockery MD /kain
== END ==
LOC: M.PC 09:20
PROVIDERS: ATTEND Anesthesiology Pain Medicine
DX: I10 Essential (primary) hypertension (principal); E11.9 Type 2 diabetes mellitus without complications; K21.9 Gastro-esophageal reflux disease without esophagitis; K44.9 Diaphragmatic hernia without obstruction or gangrene; G43.909 Migraine, unspecified, not intractable, without status migrainosus; D50.9 Iron deficiency anemia, unspecified; R53.1 Weakness; H53.40 Unspecified visual field defects; A92.5 Zika virus disease; Z96.651 Presence of right artificial knee joint; Z96.641 Presence of right artificial hip joint

== ENCOUNTER → 2020-08-29 | Outpatient (CLI) | payer MEDICARE ==
[~2020-08-29] MED LIST changes: +ATIVAN1 M1 PO; +MARINOL 2.5 MG2.5 M1 PO
== END ==
LOC: M.PC 08:20
PROVIDERS: ATTEND Anesthesiology Pain Medicine
DX: M25.551 Pain in right hip (principal); G89.29 Other chronic pain; I10 Essential (primary) hypertension; F17.200 Nicotine dependence, unspecified, uncomplicated